=== PATIENT | male | born 1995 | race African-American/Black ===

== ENCOUNTER 2017-09-08 13:13 | Inpatient (IN) | payer MEDICAID ==
[~2017-09-08] VITALS: Ht 157.5 cm; Wt 59.0 kg
[2017-09-08 13:19] VITALS: BP 136/87
--- NOTE | 2017-09-08 13:19 | NUR ---
PT BIB [facility] BED [facility], REPORT GIVEN TO MARLINE LE
--- NOTE | 2017-09-08 13:29 | NUR ---
PATIENT BIB [facility] FROM [facility] FOR POSSIBLE SEIZURE; PER [facility] PT WAS FOUND SHAKING BY THE STAFF; LAST SEIZURE ACTIVITY WAS OVER A YEAR AGO, HX; CP, HYDROCEPHALOS, SILVANO HIP DISPLACEMENT, GLIND, GTUBE. PT HAS LEFT EYE BLINDNESS, ABLE TO OPEN RIGHT EYE, APHASIC, NOT ABLE TO FOLLOW COMMANDS, CONTRACTIVE TO ALL EXTREMITIES, NO S/S OF DISTRESS, LUNGS CLEAR BL; HR EVEN AND REGULAR; GTUBE IN PLACE, INCONTINENT WITH B&B'S, SKIN IS PINK/WARM/DRY; FLACC 0, VSS; PATIENT POSITIONED FOR COMFORT; HOB ELEVATED; BEDRAILS UP X2; BED DOWN. SAND BUFFER AT BEDSIDE, ER MD MADE AWARE OF PT STATUS.
[2017-09-08] MEDS ORDERED: NACL 0.9% 1,000 ML IV SCH (13:38)
[2017-09-08] MEDS ORDERED: LORazepam 2 MG/ML VIAL IVP ONE (13:40)
[2017-09-08] MEDS ORDERED: KETOROLAC 30 MG/ML VIAL IVP ONE (13:40)
--- NOTE | 2017-09-08 13:45 | NUR ---
Patient being evaluated by physician at bedside.
--- NOTE | 2017-09-08 14:06 | NUR ---
PT IS OFF UNITS FOR CT.
[2017-09-08 14:09] LABS: BASOPHILS # (AUTO) 0.1 K/uL (0.00-0.22); BASOPHILS % (AUTO) 0.5 % (0.0-2.0); EOSINOPHILS # (AUTO) 0.1 K/uL (0-0.4); HEMATOCRIT 49.5 % (36-52); HEMOGLOBIN 16.9 g/dL (12.0-18.0); LYMPHOCYTES # (AUTO) 1.9 K/uL (2.0-11.5); LYMPHOCYTES % (AUTO) 14.1 % (20.5-51.1); MEAN CORPUSCULAR HEMOGLOBIN 29 pg (27-31); MEAN CORPUSCULAR HGB CONC 34 g/dL (33-37); MEAN CORPUSCULAR VOLUME 84.5 fL (80-94); MONOCYTES # (AUTO) 1.9 K/uL (0.8-1.0); MONOCYTES % (AUTO) 14.2 % (1.7-9.3); NEUTROPHILS # (AUTO) 9.3 K/uL (1.8-7.7); NEUTROPHILS % (AUTO) 70.2 % (42.2-75.2); PLATELET COUNT (AUTO) 158 K/uL (140-450); RED BLOOD CELL COUNT(AUTO) 5.86 MIL/uL (4.20-6.10); RED CELL DISTRIBUTION WIDTH 13.9 % (11.6-13.7); WHITE BLOOD COUNT (AUTO) 13.2 K/uL (4.8-10.8)
[2017-09-08 14:19] LABS: ANION GAP 10.8 (8-16); CARBON DIOXIDE 27.3 mmol/L (21-32); CREATININE 0.9 mg/dL (0.7-1.3); POTASSIUM 4.1 mmol/L (3.5-5.1)
[2017-09-08 14:24] LABS: ALBUMIN 2.8 g/dL (3.4-5.0); TOTAL BILIRUBIN 0.2 mg/dL (0.0-1.0)
--- NOTE | 2017-09-08 14:55 | NUR ---
REY HORAN WAS NOTIFIED OF CRITICAL CT
--- NOTE | 2017-09-08 14:56 | NUR ---
RECIEVED CRITICAL CT FROM RADIOLOGY, ER NOTIFIED.
--- NOTE | 2017-09-08 15:04 | NUR ---
# 14 FR Urinary catheter inserted utilizing sterile technique. Immediate return of 30 ml CLEAR YELLOW urine noted. Urine sample collected and sent to lab. Pt tolerated procedure WELL.
[2017-09-08 15:39] LABS: APPEARANCE,URINE CLEAR (CLEAR); BILIRUBIN,URINE NEGATIVE (NEGATIVE); BLOOD, URINE NEGATIVE (NEGATIVE); COLOR,URINE YELLOW (YELLOW); LEUKOCYTE ESTERASE ,URINE NEGATIVE (NEGATIVE); NITRITE, URINE NEGATIVE (NEGATIVE); UGLUCOSE NEGATIVE (NEGATIVE)
[2017-09-08] MEDS ORDERED: CEFEPIME 1,000 MG in DEXTROSE 5% 50 ML IV ONE (17:05)
[2017-09-08] MEDS ORDERED: CEFEPIME 1,000 MG VIAL ONE (17:17)
[2017-09-08] MEDS ORDERED: CHLO1TAB42 PO (17:24)
[2017-09-08] MEDS ORDERED: ESOM20EC PO (17:24)
[2017-09-08] MEDS ORDERED: BACL10TA4 PO (17:24)
[2017-09-08] MEDS ORDERED: MAGN400S60 PO (17:24)
[2017-09-08] MEDS ORDERED: ATA10 PO (17:24)
[2017-09-08] MEDS ORDERED: IBUP100S26 PO (17:24)
[2017-09-08] MEDS ORDERED: RISP0.5T3 PO (17:24)
[2017-09-08] MEDS ORDERED: MIRABULK PO (17:24)
[2017-09-08] MEDS ORDERED: VIT1TABL36 PO (17:24)
[2017-09-08] MEDS ORDERED: CALC-38 PO (17:24)
[2017-09-08] MEDS ORDERED: SIMV20TA1 PO (17:24)
[2017-09-08] MEDS ORDERED: CARB100T PO (17:24)
[2017-09-08] MEDS ORDERED: KEP500L GT (17:24)
[2017-09-08] MEDS ORDERED: WHEA1POW16 PO (17:24)
[2017-09-08] MEDS ORDERED: MULT10VI3 IV (17:24)
[2017-09-08] MEDS ORDERED: DOCUSATE SODIUM 100 MG GELCAP PO PRN (17:45)
[2017-09-08] MEDS: NACL 0.9% 1,000 ML IV SCH (17:57)
[2017-09-08 18:30] VITALS: BP 134/88
--- NOTE | 2017-09-08 18:30 | NUR ---
PATIENT WAS TRANSFERRED FROM ED. REPORT WAS GIVEN AT BEDSIDE. PATIENT IS PLACED ON CARDIAC MONITORING. VS IS TAKEN, MRSA WAS SWABBED. IVF WAS HUNG PER ORDER. PATIENT AWAKE, ALERT. RESPIRATION EVEN, UNLABOR ON ROOM AIR. SKIN DRY AND WARM. IV PATENT AND INTACT. NO DISTRESS NOTED AT THIS TIME. BED AT LOW POSITION, SIDE RAILS UP. CALL LIGHT WITHIN REACH.
--- NOTE | 2017-09-08 18:30 | NUR ---
Patient will be admitted to care of DR. GUEVARA. Admited to TELEMETRY UNIT. Will go to room 123A. Belongings list completed. Report to MELANY RN AT BEDSIDE, PT IS IN STABLE CONDITION AT THIS TIME.
[2017-09-08 18:34] LABS: PROTHROMBIN TIME 10.8 secs (10.8-13.4)
[2017-09-08 18:50] LABS: CHOL/HDL RATIO 3.2 (1-4.5); FREE T4 (FREE THYROXINE) 0.78 ng/dL (0.76-1.46); PHOSPHORUS 2.8 mg/dL (2.5-4.9); THYROID STIMULATING HORMONE 1.13 uIU/mL (0.34-3.74)
--- NOTE | 2017-09-08 19:18 | NUR ---
ENDORSEMENT GIVEN TO THE SCRAPER OPERATOR NURSE. PATIENT IS STABLE AT THIS TIME
--- NOTE | 2017-09-08 19:25 | NUR ---
REPORT RECEIVED FROM AM NURSE. PT IN STABLE CONDITION. WILL CONTINUE TO MONITOR.
--- NOTE | 2017-09-08 19:26 | NUR ---
AM NURSE RECEIVED THE ADMIT AT 1830. WAS UNABLE TO ATTAIN ANY INFORMATION ABOUT THE PT FROM [facility].
[2017-09-08 20:00] VITALS: BP 122/85
--- NOTE | 2017-09-08 22:30 | NUR ---
PT ASLEEP IN BED BUT AROUSABLE TO NAME. BILATERAL CHEST EXPANSION SEEN. PT NOT IN ANY ACUTE DISTRESS. WILL CONTINUE TO MONITOR.
[2017-09-09] VITALS: BP 131/79
[2017-09-09] MEDS ORDERED: PIPERACILLIN/TAZOBACTAM 3.375 GM VIAL IV ONE ×2 (00:06→05:37)
[2017-09-09] MEDS: PIPER/TAZO 3.375GM/D5W PREMIX 50 ML IV SCH ×5 (00:13→18:46)
--- NOTE | 2017-09-09 01:00 | NUR ---
FOUND IV LINE PULLED OUT AND BED LINENS VERY DAMP. RUNNING IV NS @60ML/H. PT SLEEPING IN BED. WILL ATTEMPT NEW IV SITE.
--- NOTE | 2017-09-09 02:00 | NUR ---
IV STARTED RIGHT HAND 22G. 2 ATTEMPTS MADE. PT TOLERATED WELL.
[2017-09-09 04:00] VITALS: BP 136/80
--- NOTE | 2017-09-09 05:30 | NUR ---
CNAS IN TO CHANGE PT. PT VOIDED INTO CHUCKS. PT TOLERATED THE CHANGE WELL. WILL CONTINUE TO MONITOR.
[2017-09-09] MEDS ORDERED: hydrOXYzine HCL 10 MG TAB GT SCH (06:00)
--- NOTE | 2017-09-09 06:53 | NUR ---
PATIENT HAS BEEN SCREENED AND CATEGORIZED MODERATE NUTRITION RISK. PATIENT WILL BE SEEN WITHIN 3-5 DAYS OF ADMISSION. 09/11/17-09/13/[address]
--- NOTE | 2017-09-09 07:25 | NUR ---
REPORT GIVEN TO AM NURSE. PT IN STABLE CONDITION.
--- NOTE | 2017-09-09 07:26 | NUR ---
RECEIVED REPORT FROM SITE SAFETY MANAGER RN. PATIENT IS AAOX1, HAS NO SIGNS AND SYMPTOMS OF ACUTE DISTRESS NOTED AT THIS TIME. HAS IV TO THE RIGHT HAND 22G, NS AT 60 ML/HR. HAS G-TUBE. DISCUSSED PLAN OF CARE WITH PATIENT BUT REINFORCEMENT IS NEEDED. PATIENT IS CONTRACTED. BED ALARM ON. BED IN LOWEST POSITION, SEIZURE PRECAUTIONS IN PLACE, SIDE RAILS UP X2, CALL LIGHT WITHIN REACH. WILL CONTINUE TO MONITOR.
[2017-09-09 07:50] LABS: ANION GAP 12.3 (8-16); CARBON DIOXIDE 25.3 mmol/L (21-32); CREATININE 0.9 mg/dL (0.7-1.3); POTASSIUM 3.6 mmol/L (3.5-5.1)
[2017-09-09 07:51] LABS: BASOPHILS # (AUTO) 0.1 K/uL (0.00-0.22); BASOPHILS % (AUTO) 0.5 % (0.0-2.0); EOSINOPHILS # (AUTO) 0.2 K/uL (0-0.4); EOSINOPHILS % (AUTO) 1.7 % (0.0-4.0); HEMOGLOBIN 16.2 g/dL (12.0-18.0); LYMPHOCYTES % (AUTO) 16.2 % (20.5-51.1); MEAN CORPUSCULAR HEMOGLOBIN 29 pg (27-31); MEAN CORPUSCULAR HGB CONC 35 g/dL (33-37); MONOCYTES # (AUTO) 1.7 K/uL (0.8-1.0); MONOCYTES % (AUTO) 13.7 % (1.7-9.3); NEUTROPHILS # (AUTO) 8.6 K/uL (1.8-7.7); NEUTROPHILS % (AUTO) 67.9 % (42.2-75.2); PLATELET COUNT (AUTO) 165 K/uL (140-450); RED CELL DISTRIBUTION WIDTH 13.8 % (11.6-13.7); WHITE BLOOD COUNT (AUTO) 12.6 K/uL (4.8-10.8)
[2017-09-09 08:00] VITALS: BP 130/75
[2017-09-09] MEDS ORDERED: carBAMazepine 200 MG TAB GT SCH (09:00)
[2017-09-09] MEDS ORDERED: levETIRAcetam 100 MG/ML ORASYR GT SCH (09:00)
[2017-09-09] MEDS ORDERED: risperiDONE 1 MG TAB GT SCH (09:00)
--- NOTE | 2017-09-09 09:30 | NUR ---
CAREGIVER BROUGHT THE TUBING TO BE ATTACHED TO PATIENTS GTUBE.
--- NOTE | 2017-09-09 09:40 | NUR ---
ATTACHED THE TUBE TO PATIENTS GTUBE. ASSESSED GTUBE BY INSERTING 20ML OF AIR AND LISTENING TO INSERTION. THERE WAS NO RESIDUAL. FLUSHED GTUBE WITH 20 ML OF WATER. WILL CONTINUE TO MONITOR.
[2017-09-09] MEDS: carBAMazepine 200 MG TAB GT SCH ×3 (11:06→17:28)
[2017-09-09] MEDS: LACTOBACILLUS RHAMNOSUS GG 1 EACH CAP PO SCH (11:06)
[2017-09-09] MEDS: risperiDONE 1 MG TAB GT SCH ×2 (11:06→21:19)
[2017-09-09] MEDS: POLYETHYLENE GLYCOL 17 GM/PKT PO SCH (11:07)
[2017-09-09] MEDS: MAGNESIUM HYDROXIDE 2400 MG/30 ML UDC GT SCH (11:07)
[2017-09-09] MEDS: levETIRAcetam 100 MG/ML ORASYR GT SCH ×2 (11:07→21:19)
[2017-09-09] MEDS: hydrOXYzine HCL 10 MG TAB GT SCH ×2 (11:10→18:45)
[2017-09-09 12:00] VITALS: BP 113/68
[2017-09-09] MEDS: BACLOFEN 10 MG TAB GT SCH ×2 (14:09→21:19)
[2017-09-09 16:00] VITALS: BP 113/67
--- NOTE | 2017-09-09 19:26 | NUR ---
ENDORSED PATIENT TO VENDING MACHINE ATTENDANT RN FOR CONTINUITY OF CARE. PATIENT IN STABLE CONDITION.
--- NOTE | 2017-09-09 19:27 | NUR ---
RECEIVED REPORT AT PT BEDSIDE FROM DAY SHIFT RN, FOR CONTINUITY OF CARE. PATIENT IS APHASIC ON ROOM AIR. UNABLE TO FOLLOW COMMANDS. PT SKIN IS INTACT. PATIENT HAS 22G IV TO RIGHT HAND, ASYMPTOMATIC, INTACT, PATENT. RESPIRATIONS EVEN AND UNLABORED, AND CONTRACTED EXTREMITIES (BILATERAL UPPER AND LOWER). UPDATED BOARD. VITAL SIGNS WITHIN NORMAL LIMITS. PT STABLE, NO SIGNS OF DISTRESS NOTED AT THIS TIME. BED IN LOWEST POSITION, BED ALARM ON. CALL LIGHT WITHIN REACH, WILL CONTINUE TO MONITOR.
[2017-09-09 20:00] VITALS: BP 117/69
[2017-09-09] MEDS: HYDROcodone/APAP 7.5/325 MG 1 TAB PO PRN (21:19)
[2017-09-09] MEDS: SIMVASTATIN 20 MG TAB GT SCH (21:19)
[2017-09-09] MEDS: NACL 0.9% 1,000 ML IV SCH (21:20)
--- NOTE | 2017-09-09 21:20 | NUR ---
ADMINISTERED SCHEDULED MEDICATIONS AND NORCO FOR FLACC 6. PT TOLERATED WELL. FLUSHED WITH 30ML WATER. BED IN LOWEST POSITION, BED ALARM ON. CALL LIGHT WITHIN REACH, WILL CONTINUE TO MONITOR.
--- NOTE | 2017-09-09 22:16 | NUR ---
RECEIVED REPORT AT PT BEDSIDE FROM DAY SHIFT RN, FOR CONTINUITY OF CARE. PATIENT IS APHASIC ON ROOM AIR. UNABLE TO FOLLOW COMMANDS. PT SKIN IS INTACT. PATIENT HAS 22G IV TO RIGHT HAND, ASYMPTOMATIC, INTACT, PATENT. RESPIRATIONS EVEN AND UNLABORED. UPDATED BOARD. VITAL SIGNS WITHIN NORMAL LIMITS. PT STABLE, NO SIGNS OF DISTRESS NOTED AT THIS TIME. BED IN LOWEST POSITION, BED ALARM ON. CALL LIGHT WITHIN REACH, WILL CONTINUE TO MONITOR. Addendum: 09/09/17 at 2221 by Yoselin Samayoa RN PLEASE DISREGARD.
[2017-09-10] VITALS: BP 125/76
--- NOTE | 2017-09-10 | NUR ---
VITAL SIGNS WITHIN NORMAL LIMITS. PT STABLE, NO SIGNS OF DISTRESS NOTED AT THIS TIME. BED IN LOWEST POSITION, BED ALARM ON. CALL LIGHT WITHIN REACH, WILL CONTINUE TO MONITOR.
[2017-09-10] MEDS: PIPER/TAZO 3.375GM/D5W PREMIX 50 ML IV SCH ×4 (00:14→17:16)
[2017-09-10] MEDS: hydrOXYzine HCL 10 MG TAB GT SCH ×2 (00:14→05:03)
[2017-09-10 04:00] VITALS: BP 143/80
[2017-09-10] MEDS: BACLOFEN 10 MG TAB GT SCH ×3 (05:03→21:23)
[2017-09-10] MEDS: HYDROcodone/APAP 7.5/325 MG 1 TAB PO PRN (05:04)
--- NOTE | 2017-09-10 07:09 | NUR ---
ENDORSED PT TO DAY SHIFT RN FOR CONTINUITY OF CARE. PT IN STABLE CONDITION.
--- NOTE | 2017-09-10 07:10 | NUR ---
RECEIVED REPORT FROM ANIMAL CRUELTY INVESTIGATOR RN. PATIENT IS AWAKE, RESPONDS TO SHAKING. HAS NO SIGNS AND SYMPTOMS OF ACUTE DISTRESS NOTED AT THIS TIME. HAS IV TO THE RIGHT HAND 22G, NS AT 60 ML/HR. HAS G-TUBE. DISCUSSED PLAN OF CARE WITH PATIENT BUT REINFORCEMENT IS NEEDED. PATIENT IS CONTRACTED. BED ALARM ON. BED IN LOWEST POSITION, SEIZURE PRECAUTIONS IN PLACE, SIDE RAILS UP X2, CALL LIGHT WITHIN REACH. WILL CONTINUE TO MONITOR.
[2017-09-10 07:28] LABS: BASOPHILS # (AUTO) 0.1 K/uL (0.00-0.22); BASOPHILS % (AUTO) 0.5 % (0.0-2.0); EOSINOPHILS # (AUTO) 0.1 K/uL (0-0.4); EOSINOPHILS % (AUTO) 0.7 % (0.0-4.0); HEMATOCRIT 45.1 % (36-52); HEMOGLOBIN 15.3 g/dL (12.0-18.0); LYMPHOCYTES # (AUTO) 1.4 K/uL (2.0-11.5); LYMPHOCYTES % (AUTO) 11.1 % (20.5-51.1); MEAN CORPUSCULAR HEMOGLOBIN 29 pg (27-31); MEAN CORPUSCULAR HGB CONC 34 g/dL (33-37); MEAN CORPUSCULAR VOLUME 84.2 fL (80-94); MONOCYTES % (AUTO) 16.3 % (1.7-9.3); NEUTROPHILS # (AUTO) 8.9 K/uL (1.8-7.7); NEUTROPHILS % (AUTO) 71.4 % (42.2-75.2); PLATELET COUNT (AUTO) 184 K/uL (140-450); RED BLOOD CELL COUNT(AUTO) 5.35 MIL/uL (4.20-6.10); RED CELL DISTRIBUTION WIDTH 13.6 % (11.6-13.7); WHITE BLOOD COUNT (AUTO) 12.4 K/uL (4.8-10.8)
[2017-09-10 07:38] LABS: ANION GAP 14.9 (8-16); CARBON DIOXIDE 23.6 mmol/L (21-32); POTASSIUM 4.5 mmol/L (3.5-5.1)
[2017-09-10 07:41] LABS: MAGNESIUM 2.2 mg/dL (1.8-2.4); PHOSPHORUS 3.8 mg/dL (2.5-4.9)
[2017-09-10 08:00] VITALS: BP 104/86
[2017-09-10 09:07] LABS: T4 (THYROXINE) 7.8 ug/dL (4.5-12.0)
[2017-09-10] MEDS: LACTOBACILLUS RHAMNOSUS GG 1 EACH CAP PO SCH (09:57)
[2017-09-10] MEDS: levETIRAcetam 100 MG/ML ORASYR GT SCH ×2 (09:57→21:23)
[2017-09-10] MEDS: carBAMazepine 200 MG TAB GT SCH ×3 (09:57→17:16)
[2017-09-10] MEDS: POLYETHYLENE GLYCOL 17 GM/PKT PO SCH (09:58)
[2017-09-10] MEDS: risperiDONE 1 MG TAB GT SCH ×2 (09:58→21:23)
[2017-09-10] MEDS: MAGNESIUM HYDROXIDE 2400 MG/30 ML UDC GT SCH (09:58)
--- NOTE | 2017-09-10 11:45 | NUR ---
STARTED PATIENT ON FEEDING AT 50 ML/HR. PATIENT TOLERATING WELL SO FAR.
[2017-09-10 12:00] VITALS: BP 136/80
[2017-09-10] MEDS: hydrOXYzine HCL 25 MG TAB GT SCH ×2 (12:00→17:16)
--- NOTE | 2017-09-10 13:05 | NUR ---
SPOKE WITH STAFF FROM [facility] AND THEY STATED THAT THE PATIENT WAS ON A PUREED DIET THERE. WILL LET DR ARMANDO KNOW.
[2017-09-10 16:00] VITALS: BP 142/84
--- NOTE | 2017-09-10 16:00 | NUR ---
PATIENTS HEART RATE IS 124 ON THE MONITOR, HAS A FEVER OF 100.7, AND RESPIRATIONS OF 34. WILL ADMINISTER TYLENOL AND REASSESS.
[2017-09-10] MEDS: ACETAMINOPHEN 325 MG TAB PO PRN (16:09)
--- NOTE | 2017-09-10 16:10 | NUR ---
NOTIFIED DR BERG OF PATIENTS VITALS BEFORE I ADMINISTERED THE TYLENOL. SHE STATED TO ADMINISTER THE TYLENOL AND WILL SEE ABOUT GIVING PATIENT A BOLUS OF FLUIDS.
--- NOTE | 2017-09-10 17:10 | NUR ---
PATIENTS TEMP AT 100.9 ORAL, BUT RESPIRATORY RATE AND HEART RATE HAVE DECREASED TO NORMAL. COOLING MEASURES ARE IN PLACE. WILL CONTINUE TO MONITOR.
--- NOTE | 2017-09-10 18:58 | NUR ---
PATIENTS ORAL TEMPERATURE IS 99.8. NO SIGNS AND SYMPTOMS OF ACUTE DISTRESS NOTED AT THIS TIME. NO SEIZURES NOTED AT THIS TIME.
--- NOTE | 2017-09-10 19:20 | NUR ---
ENDORSED PATIENT TO SHOE CASER RN FOR CONTINUITY OF CARE. PATIENT IN STABLE CONDITION.
[2017-09-10 20:00] VITALS: BP 135/76
[2017-09-10] MEDS: SIMVASTATIN 20 MG TAB GT SCH (21:24)
--- NOTE | 2017-09-10 21:30 | NUR ---
ADMINISTERED SCHEDULED MEDICATIONS, NO RESIDUAL NOTED. PT TOLERATED WELL, FLUSHED WITH 30ML WATER. NO SIGNS OF DISTRESS NOTED AT THIS TIME. BED IN LOWEST POSITION, BED ALARM ON. CALL LIGHT WITHIN REACH, WILL CONTINUE TO MONITOR.
[2017-09-10] MEDS: NACL 0.9% 1,000 ML IV SCH (22:25)
[2017-09-11] VITALS: BP 138/79
[2017-09-11] MEDS: ACETAMINOPHEN 325 MG TAB PO PRN (00:35)
[2017-09-11] MEDS: PIPER/TAZO 3.375GM/D5W PREMIX 50 ML IV SCH ×4 (00:35→17:25)
[2017-09-11] MEDS: hydrOXYzine HCL 25 MG TAB GT SCH ×4 (00:35→17:25)
--- NOTE | 2017-09-11 00:40 | NUR ---
PT HAS FEVER OF 101.2, ADMINISTERED SCHEDULED MEDICATIONS AND TYLENOL THROUGH GTUBE, NO RESIDUAL NOTICED. FLUSHED WITH 30MLS OF WATER. PT TOLERATED WELL. NO SIGNS OF DISTRESS NOTED AT THIS TIME. BED IN LOWEST POSITION, BED ALARM ON. CALL LIGHT WITHIN REACH, WILL CONTINUE TO MONITOR.
--- NOTE | 2017-09-11 02:48 | NUR ---
TEMPERATURE IS NOW 99.3, WITH COOLING MEASURES STILL IN PLACE. NO SIGNS OF DISTRESS NOTED AT THIS TIME. BED IN LOWEST POSITION, BED ALARM ON. CALL LIGHT WITHIN REACH, WILL CONTINUE TO MONITOR.
[2017-09-11 04:00] VITALS: BP 123/72
--- NOTE | 2017-09-11 04:00 | NUR ---
VITAL SIGNS WITHIN NORMAL LIMITS, EXCEPT O2, PT STARTED DESATURATING FROM 90 TO 87. CONNECTED O2 VIA NASAL CANNULA AT 2L, AND PT NOW SATURATING AT 93%. PT STABLE, NO SIGNS OF DISTRESS NOTED AT THIS TIME. BED IN LOWEST POSITION, BED ALARM ON. CALL LIGHT WITHIN REACH, WILL CONTINUE TO MONITOR.
[2017-09-11] MEDS: BACLOFEN 10 MG TAB GT SCH ×3 (05:13→21:18)
--- NOTE | 2017-09-11 05:35 | NUR ---
PT STILL ON O2 2L SATURATING BETWEEN 93 AND 94. COOLING MEASURES STILL IN PLACE. TEMP 99.1
[2017-09-11 06:21] LABS: BASOPHILS # (AUTO) 0.1 K/uL (0.00-0.22); BASOPHILS % (AUTO) 0.3 % (0.0-2.0); EOSINOPHILS # (AUTO) 0.1 K/uL (0-0.4); EOSINOPHILS % (AUTO) 0.8 % (0.0-4.0); HEMATOCRIT 44.1 % (36-52); HEMOGLOBIN 14.9 g/dL (12.0-18.0); LYMPHOCYTES # (AUTO) 2.6 K/uL (2.0-11.5); LYMPHOCYTES % (AUTO) 16.4 % (20.5-51.1); MEAN CORPUSCULAR HEMOGLOBIN 28 pg (27-31); MEAN CORPUSCULAR HGB CONC 34 g/dL (33-37); MEAN CORPUSCULAR VOLUME 84.5 fL (80-94); MONOCYTES # (AUTO) 2.9 K/uL (0.8-1.0); MONOCYTES % (AUTO) 18.3 % (1.7-9.3); NEUTROPHILS # (AUTO) 10.2 K/uL (1.8-7.7); NEUTROPHILS % (AUTO) 64.2 % (42.2-75.2); PLATELET COUNT (AUTO) 177 K/uL (140-450); RED BLOOD CELL COUNT(AUTO) 5.23 MIL/uL (4.20-6.10); RED CELL DISTRIBUTION WIDTH 13.4 % (11.6-13.7); WHITE BLOOD COUNT (AUTO) 15.9 K/uL (4.8-10.8)
[2017-09-11 06:45] LABS: ANION GAP 12.2 (8-16); CARBON DIOXIDE 25.6 mmol/L (21-32); CREATININE 1.1 mg/dL (0.7-1.3); POTASSIUM 3.8 mmol/L (3.5-5.1)
[2017-09-11 06:50] LABS: MAGNESIUM 2.3 mg/dL (1.8-2.4); PHOSPHORUS 3.2 mg/dL (2.5-4.9)
--- NOTE | 2017-09-11 07:23 | NUR ---
ENDORSED PT TO DAY SHIFT RN FOR CONTINUITY OF CARE, PT IN STABLE CONDITION.
--- NOTE | 2017-09-11 07:24 | NUR ---
RECEIVED REPORT FROM SHIRT OPERATOR NURSE. PATIENT LYING DOWN IN BED SLEEPING, AROUSABLE BY VOICE. NO DISTRESS NOTED. FLACC 0. RESPIRATIONS EVEN, UNLABORED, ON O2 2L/MIN VIA NC. AAOX1, APHASIC, NON-VERBAL, CALM, SKIN COLOR APPROPRIATE TO ETHNICITY, WARM TO TOUCH. SKIN IS INTACT. 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 ABDOMEN SOFT, NON-DISTENDED, GTUBE IN PLACE, INTACT, AND PATENT. IV SITE INTACT, PATENT, AND INFUSING IVF PER MD ORDERS. REVIEWED PLAN OF CARE WITH PATIENT. UNABLE TO COMPREHEND. SAFETY MEASURES IN PLACE, CALL LIGHT WITHIN REACH. WILL CONTINUE TO MONITOR.
[2017-09-11 08:00] VITALS: BP 101/56
--- NOTE | 2017-09-11 08:00 | NUR ---
PATIENT IS SLEEPING COMFORTABLY, EASILY AROUSABLE ON BY NAME. SKIN DRY AND WARM. IV PATENT AND INTACT. GTUBE DRY AND CLEAN. NO DISTRESS NOTED AT THIS TIME. FLACC 0. BED AT LOW POSITION, SIDE RAILS UP. CALL LIGHT WITHIN REACH
--- NOTE | 2017-09-11 08:00 | NUR ---
DR. BEGUM AT BEDSIDE REVIEWING PLAN OF CARE WITH PATIENT. WILL CONTINUE TO MONITOR.
--- NOTE | 2017-09-11 08:45 | NUR ---
GAVE REPORT TO MARLINE JAVIER FOR CONTINUITY OF CARE. PATIENT IN STABLE CONDITION.
[2017-09-11] MEDS: levETIRAcetam 100 MG/ML ORASYR GT SCH ×2 (09:54→21:20)
[2017-09-11] MEDS: LACTOBACILLUS RHAMNOSUS GG 1 EACH CAP PO SCH (09:55)
[2017-09-11] MEDS: carBAMazepine 200 MG TAB GT SCH ×3 (09:55→17:25)
[2017-09-11] MEDS: risperiDONE 1 MG TAB GT SCH ×2 (09:55→21:19)
[2017-09-11] MEDS: POLYETHYLENE GLYCOL 17 GM/PKT PO SCH (09:55)
[2017-09-11] MEDS: MAGNESIUM HYDROXIDE 2400 MG/30 ML UDC GT SCH (09:55)
[2017-09-11] MEDS: NACL 0.9% 1,000 ML IV SCH ×2 (09:56→18:17)
--- NOTE | 2017-09-11 10:12 | NUR ---
GTUBE DRY AND INTACT. RESIDUAL CHECKED AT 30ML. MEDS WERE GIVEN PER ORDER. PATIENT TOLERATED WELL.
--- NOTE | 2017-09-11 10:30 | NUR ---
PATIENT HAS BEEN CATEGORIZED HIGH NUTRITION RISK DUE TO RECEIVING A FNS CONSULTATION. PATIENT WILL BE SEEN WITHIN 1-2 DAYS OF ADMISSION. 09/11/17 09/12/[address]
--- NOTE | 2017-09-11 11:45 | NUR ---
PATIENT IS SLEEPING COMFORTABLY, EASILY AROUSABLE BY NAME. RESPIRATION EVEN, UNLABOR ON 2L NC. VS IS STABLE. NO DISTRESS NOTED AT THIS TIME
[2017-09-11 12:00] VITALS: BP 119/72
--- NOTE | 2017-09-11 12:30 | NUR ---
RESIDUAL WAS CHECKED AT 3ML. PATIENT TOLERATED DIET WELL. MEDS WERE GIVEN PER ORDER
--- NOTE | 2017-09-11 14:30 | NUR ---
PATIENT IS SLEEPING COMFORTABLY, RESPIRATION EVEN, UNLABOR ON 2L NC. NO DISTRESS NOTED AT THIS TIME
--- NOTE | 2017-09-11 15:34 | NUR ---
09/11/17 RD INITIAL ASSESSMENT COMPLETED PLEASE REFER TO NUTRITION ASSESSMENT UNDER CARE ACTIVITY FOR ESTIMATED NUTRITIONAL NEEDS. 1. CONTINUE PUREE DIET TOLERATED 2. RECOMMEND BOOST PLUS BID IF PO INTAKE FALLS BELOW 75% 3. PROVIDED PT WITH FOOD AND DRUG INTERACTION EDUCATION 4. RD TO FOLLOW-UP 3-5 DAYS, MODERATE RISK [address]
[2017-09-11 16:00] VITALS: BP 118/63
--- NOTE | 2017-09-11 16:10 | NUR ---
PATIENT IS RESTING COMFORTABLY. RESPIRATION EVEN, UNLABOR ON ROOM AIR. VS IS STABLE. FLACC 0. NO DISTRESS NOTED AT THIS TIME.
--- NOTE | 2017-09-11 18:22 | NUR ---
PATIENT WAS SLEEPING COMFORTABLY, EASILY AROUSABLE BY TOUCH. RESPIRATION EVEN, UNLABOR ON ROOM AIR. IV PATENT AND INTACT. NO DISTRESS NOTED AT THIS TIME. CALL LIGHT WITHIN REACH
--- NOTE | 2017-09-11 19:21 | NUR ---
RECEIVED REPORT FROM MELANY HORAN DAYSHIFT NURSE AT BEDSIDE FOR CONTINUITY OF CARE. PT IS AOX 1. HE IS SITTING UPRIGHT IN LOW BED WITH SEIZURE PRECAUTIONS IN PLACE . PT SKIN INTACT AND HAS A G TUBE WHICH WAS FLUSHED PATENT AND NO RESIDUAL NOTED. PT HAS NORMAL SALINE RUNNING AT 80 MLS/HR VIA A R HAND 22G IV SITE WHICH IS INTACT AND ASYMPTOMATIC. V/S FOLLOWS T 98.1 P 106 R 20 B/P 122/64 02M 93 WITH 4 LITERS VIA N/C. PT HAS NO S/S OF PAIN OR DISTRESS NOTED.
--- NOTE | 2017-09-11 19:21 | NUR ---
ENDORSEMENT GIVEN TO THE CONNIE CLEANER NURSE. PATIENT IS STABLE AT THIS TIME.
[2017-09-11 20:00] VITALS: BP 122/64
[2017-09-11] MEDS: SIMVASTATIN 20 MG TAB GT SCH (21:19)
--- NOTE | 2017-09-11 22:30 | NUR ---
PT TURNED AND CHANGED AND JOSE CARE PROVIDED. PT IS VERY CONTRACTED IN LOWER LEGS, BUT SKIN IS INTACT WITH NO S/S OF BREAKDOWN. PT DOES TRY TO GET N/C OFF OVER HIS HEAD AND WAS REMINDED TO KEEP N/C ON SO HE CAN BREATH BETTER. BED IN LOW POSITION AND SEIZURE PRECAUTIONS IN PLACE. PT REPOSITIONED AND MADE COMFORTABLE. CALL BONILLA IN REACH. PT HAD NO S/S OF PAIN OR DISTRESS NOTED.
[2017-09-12] VITALS (7 sets, daily range): BP systolic 109–125; BP diastolic 64–76
[2017-09-12] MEDS: hydrOXYzine HCL 25 MG TAB GT SCH ×4 (00:43→16:43)
[2017-09-12] MEDS: NACL 0.9% 1,000 ML IV SCH ×2 (01:46→16:44)
--- NOTE | 2017-09-12 04:30 | NUR ---
pt turned , changed and repostioned. no s/s of pain or distress noted. pt in low bed with hob up at 45%.side rails up and seizure precautions in place. no s/s of seizure noted. pt on 3 liters of 02 via n/c all vss. al meds given as orederd.
[2017-09-12] MEDS: BACLOFEN 10 MG TAB GT SCH ×3 (04:52→20:55)
[2017-09-12] MEDS: PIPER/TAZO 3.375GM/D5W PREMIX 50 ML IV SCH ×4 (05:04→17:40)
--- NOTE | 2017-09-12 07:10 | NUR ---
pt report given at bedside to Lise odonnell dayshift nurse for continuity of care, pt in stable condition.
--- NOTE | 2017-09-12 07:53 | NUR ---
PATIENT WAS SLEEPING COMFORTABLY, EASILY AROUSABLE BY TOUCH. RESPIRATION EVEN, UNLABOR ON 4L NC. SKIN DRY AND WARM. LUNGS SOUND DIMINISH ON RLL, CLEAR THROUGHOUT. BOWEL SOUND ACTIVE 4 QUADRANTS. GTUBE DRY AND INTACT. REGULAR CARDIAC RHYTHM. FLACC 0. NO DISTRESS NOTED. BED AT LOW POSITION, SIDE RAILS UP. BED ALARM ACTIVE.
[2017-09-12] MEDS: POLYETHYLENE GLYCOL 17 GM/PKT PO SCH (09:35)
[2017-09-12] MEDS: levETIRAcetam 100 MG/ML ORASYR GT SCH ×2 (09:35→20:54)
[2017-09-12] MEDS: MAGNESIUM HYDROXIDE 2400 MG/30 ML UDC GT SCH (09:36)
[2017-09-12] MEDS: LACTOBACILLUS RHAMNOSUS GG 1 EACH CAP PO SCH (09:36)
[2017-09-12] MEDS: risperiDONE 1 MG TAB GT SCH ×2 (09:36→20:54)
[2017-09-12] MEDS: carBAMazepine 200 MG TAB GT SCH ×3 (09:37→16:43)
--- NOTE | 2017-09-12 10:05 | NUR ---
CALLED AND TALKED TO KERRIE HOPOSN, [employer]OPTER FOR THE PATIENT, REGARDING CONSENT FOR CT CHEST WITH CONTRAST. WAS INFORMED CONSENT WILL BE FAXED TO THE DEPARTMENT.
[2017-09-12 11:37] LABS: BASOPHILS # (AUTO) 0.1 K/uL (0.00-0.22); BASOPHILS % (AUTO) 0.5 % (0.0-2.0); EOSINOPHILS # (AUTO) 0.4 K/uL (0-0.4); EOSINOPHILS % (AUTO) 3.7 % (0.0-4.0); HEMATOCRIT 40.9 % (36-52); HEMOGLOBIN 13.8 g/dL (12.0-18.0); LYMPHOCYTES # (AUTO) 2.1 K/uL (2.0-11.5); LYMPHOCYTES % (AUTO) 19.7 % (20.5-51.1); MEAN CORPUSCULAR HEMOGLOBIN 29 pg (27-31); MEAN CORPUSCULAR HGB CONC 34 g/dL (33-37); MEAN CORPUSCULAR VOLUME 84.3 fL (80-94); MONOCYTES # (AUTO) 1.6 K/uL (0.8-1.0); NEUTROPHILS # (AUTO) 6.6 K/uL (1.8-7.7); NEUTROPHILS % (AUTO) 61.1 % (42.2-75.2); PLATELET COUNT (AUTO) 178 K/uL (140-450); RED BLOOD CELL COUNT(AUTO) 4.85 MIL/uL (4.20-6.10); RED CELL DISTRIBUTION WIDTH 13.5 % (11.6-13.7); WHITE BLOOD COUNT (AUTO) 10.8 K/uL (4.8-10.8)
--- NOTE | 2017-09-12 11:49 | NUR ---
PATIENT AWAKE, ALERT. RESPIRATION EVEN, UNLABOR ON 2L NC. SKIN DRY AND WARM. VS IS STABLE. FLACC 0. NO DISTRESS NOTED AT THIS TIME. NEW IV WAS INSERT TO LEFT AC. PATIENT TOLERATED WELL
[2017-09-12] MEDS: ACETAMINOPHEN 325 MG TAB PO PRN ×2 (12:23→20:54)
[2017-09-12 12:41] LABS: ANION GAP 10.4 (8-16); CARBON DIOXIDE 28.5 mmol/L (21-32); CREATININE 0.8 mg/dL (0.7-1.3); POTASSIUM 3.9 mmol/L (3.5-5.1)
--- NOTE | 2017-09-12 13:48 | NUR ---
ENDORSEMENT GIVEN TO DARIO HORAN FOR CONTINUITY OF CARE. PATIENT IS STABLE AT THIS TIME
--- NOTE | 2017-09-12 13:48 | NUR ---
DR. DOLAN WAS MADE AWARE OF REDNESS ON PATIENT'S PERINEAL AREA, AWAITING FOR NEW ORDER.
[2017-09-12] MEDS ORDERED: HYDRAGUARD CREAM TP PRN (13:55)
--- NOTE | 2017-09-12 14:00 | NUR ---
RECEIVED PT REPORT FROM MARLINE MOSLEY. PT IS SLEEPING, NO S/S OF ACUTE DISTRESS ON O2 2L, VIA NC.
--- NOTE | 2017-09-12 16:50 | NUR ---
CALLED KERRIE HOPSON, LEFT A MESSAGE FOR CONSENT CT WITH CONTRAST, PHONE # AND FAX# PROVIDED.
--- NOTE | 2017-09-12 17:30 | NUR ---
PT IS ABLE TO SWALLOW, ON PUREE DIET. MED GIVEN PO, NO SWALLOWING DIFFICULTY NOTED.
--- NOTE | 2017-09-12 19:15 | NUR ---
REPORT GIVEN TO VEHICLE CHECK IN CLERK RN AT BEDSIDE FOR CONTINUE OF CARE, PT IS IN STABLE CONDITION AT THIS TIME.
--- NOTE | 2017-09-12 19:17 | NUR ---
RECEIVED REPORT FROM RN. PT RESTING IN BED. AAOX1, APHASIC BUT OPENS EYES TO NAME. PT ON O2 2L NC. NO S/S OF ACUTE DISTRESS. PT'S G-TUBE NOTED. IV SITES PATENT AND INTACT. COOLING MEASURES IN PLACE FOR FEVER. CALL LIGHT WITHIN REACH. SAFETY MEASURES ENSURED. WILL CONTINUE TO MONITOR.
[2017-09-12] MEDS: SIMVASTATIN 20 MG TAB GT SCH (20:55)
--- NOTE | 2017-09-12 23:57 | NUR ---
DR. JIMÉNEZ MADE AWARE OF FEVER. COOLING MEASURES IN PLACE. WILL CONTINUE TO MONITOR.
[2017-09-13] MEDS ORDERED: KETOROLAC 15 MG/ML VIAL IVP SCH
[2017-09-13] MEDS: hydrOXYzine HCL 25 MG TAB GT SCH ×4 (00:22→17:42)
[2017-09-13] MEDS: PIPER/TAZO 3.375GM/D5W PREMIX 50 ML IV SCH ×5 (00:22→17:17)
[2017-09-13 04:00] VITALS: BP 105/70
--- NOTE | 2017-09-13 04:23 | NUR ---
PT'S IV OUT ON ASSESSMENT. NEW IV STARTED. NO S/S OF ACUTE DISTRESS. WILL CONTINUE TO MONITOR.
[2017-09-13] MEDS: BACLOFEN 10 MG TAB GT SCH ×3 (05:10→21:16)
[2017-09-13 06:29] LABS: BASOPHILS # (AUTO) 0.1 K/uL (0.00-0.22); BASOPHILS % (AUTO) 0.6 % (0.0-2.0); EOSINOPHILS # (AUTO) 0.6 K/uL (0-0.4); EOSINOPHILS % (AUTO) 6.3 % (0.0-4.0); HEMATOCRIT 41.1 % (36-52); HEMOGLOBIN 13.9 g/dL (12.0-18.0); LYMPHOCYTES # (AUTO) 3.1 K/uL (2.0-11.5); LYMPHOCYTES % (AUTO) 32.3 % (20.5-51.1); MEAN CORPUSCULAR HEMOGLOBIN 29 pg (27-31); MEAN CORPUSCULAR HGB CONC 34 g/dL (33-37); MONOCYTES # (AUTO) 1.2 K/uL (0.8-1.0); NEUTROPHILS # (AUTO) 4.6 K/uL (1.8-7.7); NEUTROPHILS % (AUTO) 47.8 % (42.2-75.2); PLATELET COUNT (AUTO) 197 K/uL (140-450); RED BLOOD CELL COUNT(AUTO) 4.83 MIL/uL (4.20-6.10); RED CELL DISTRIBUTION WIDTH 13.4 % (11.6-13.7); WHITE BLOOD COUNT (AUTO) 9.6 K/uL (4.8-10.8)
[2017-09-13 06:48] LABS: ANION GAP 8.7 (8-16); CARBON DIOXIDE 29.4 mmol/L (21-32); CREATININE 0.9 mg/dL (0.7-1.3); POTASSIUM 4.1 mmol/L (3.5-5.1)
--- NOTE | 2017-09-13 07:15 | NUR ---
RECEIVED REPORT FROM NIGHTSHIFT NURSE AT [facility]. PATIENT IS ASLEEP AT THIS TIME. PATIENT IS AROUSABLE TO NAME. PATIENT IS APHASIC. PATIENT HAS A G-TUBE IN PLACE THAT IS CLAMPED. PATIENT HAS AN IV 22G ON LEFT FOREARM RUNNING 50 ML/HR NORMAL SALINE. NO DISTRESS NOTED. FLACC SCORE 0 AT THIS TIME. PATIENT IS WARM TO TOUCH. ROOM IS NEXT TO NURSING STATION. UPDATED BOARD IN PATIENT'S ROOM. APPRORPIATE SIGNS OUTSIDE OF PATIENT'S ROOM. WILL CONTINUE TO MONITOR PATIENT.
[2017-09-13 08:00] VITALS: BP 120/76
[2017-09-13] MEDS: risperiDONE 1 MG TAB GT SCH ×2 (08:25→21:16)
[2017-09-13] MEDS: LACTOBACILLUS RHAMNOSUS GG 1 EACH CAP PO SCH (08:25)
[2017-09-13] MEDS: carBAMazepine 200 MG TAB GT SCH ×3 (08:25→17:43)
[2017-09-13] MEDS: levETIRAcetam 100 MG/ML ORASYR GT SCH ×2 (08:32→21:15)
--- NOTE | 2017-09-13 08:37 | NUR ---
CRUSHED AM MEDICATIONS. PATIENT ABLE TO TAKE AM MEDICATIONS WITH FOOD. PATIENT TOLERATED WELL. WILL CONTINUE TO MONITOR PATIENT.
[2017-09-13] MEDS: POLYETHYLENE GLYCOL 17 GM/PKT PO SCH (09:00)
[2017-09-13] MEDS: MAGNESIUM HYDROXIDE 2400 MG/30 ML UDC GT SCH (09:00)
--- NOTE | 2017-09-13 09:58 | NUR ---
PATIENT RESTING AT THIS TIME. NO DISTRESS NOTED. WILL CONTINUE TO MONITOR PATIENT.
--- NOTE | 2017-09-13 10:44 | NUR ---
TALKED TO GIOVANNI OF [facility] REGARDING PATIENT'S CT OF CHEST WITH CONTRAST. ELEUTERIO SAID SHE HAD FAXED IT BACK YESTERDAY. SHE WILL FOLLOW UP WITH CLINICAL SERVICES OF THE [facility] TO SEE IF IT WAS FAXED BACK TO OUR [facility]. AWAITING CALL BACK FROM GIOVANNI.
--- NOTE | 2017-09-13 11:41 | NUR ---
PATIENT RESTING IN BED. NO DISTRESS NOTED. WILL CONTINUE TO MONITOR PATIENT.
[2017-09-13 12:00] VITALS: BP 120/70
[2017-09-13] MEDS: NACL 0.9% 1,000 ML IV SCH (12:37)
--- NOTE | 2017-09-13 13:11 | NUR ---
LEFT A VOICEMAIL FOR [facility] REGARDING PATIENT'S CONSENT FOR CT. NO FAX HAS BEEN RECEIVED YET. AWAITING CALL BACK.
--- NOTE | 2017-09-13 14:24 | NUR ---
PATIENT RESTING IN BED. NO DISTRESS NOTED. WILL CONTINUE TO MONITOR PATIENT.
--- NOTE | 2017-09-13 15:46 | NUR ---
SPOKE TO SCOTTY FROM [facility] PATIENT. DR. DOLAN ABLE TO EXPLAIN RISKS AND BENEFITS OF THE CT OF CHEST OVER THE PHONE. AWAITING SIGNED CONSENT TO BE FAXED OVER.
[2017-09-13 16:00] VITALS: BP 135/73
--- NOTE | 2017-09-13 16:56 | NUR ---
PATIENT RESTING IN BED. NO DISTRESS NOTED. WILL CONTINUE TO MONITOR PATIENT.
--- NOTE | 2017-09-13 18:11 | NUR ---
PATIENT RESTING IN BED. NO DISTRESS NOTED. WILL CONTINUE TO MONITOR PATIENT.
--- NOTE | 2017-09-13 19:20 | NUR ---
GAVE REPORT TO NIGHTSHIFT NURSE AT BEDSIDE. PATIENT IN STABLE CONDITION.
--- NOTE | 2017-09-13 19:21 | NUR ---
RECEIVED BEDSIDE REPORT FROM DAY SHIFT NURSE ZEKE RN, PT STABLE, NO DISTRESS NOTED, IV TO L FA 22G RUNNING NS @ 50ML/HR , INFUSING WELL, AND L UA 20G SL PATENT,INTACT, PT ON 2LPM O2 VIA NC, NO SOB, LUNG SOUNDS RHONCHI THROUGHOUT DURING EXPIRATION, PT IS APHASIC, FLACC 0, INITIAL ASSESSMENT, DONE, ALL SAFETY PRECAUTION MET, WILL CONTINUE TO MONITOR.
[2017-09-13 20:00] VITALS: BP 145/87
[2017-09-13] MEDS: SIMVASTATIN 20 MG TAB GT SCH (21:15)
--- NOTE | 2017-09-13 21:16 | NUR ---
DUE MEDICATION GIVEN, PT TOLERATED WELL, NO DISTRESS NOTED, CALL LIGHT WITHIN REACH, WILL CONTINUE TO MONITOR.
[2017-09-14] VITALS: BP 134/91
[2017-09-14] MEDS: PIPER/TAZO 3.375GM/D5W PREMIX 50 ML IV SCH ×4 (00:14→17:36)
[2017-09-14] MEDS: hydrOXYzine HCL 25 MG TAB GT SCH ×4 (00:14→17:36)
--- NOTE | 2017-09-14 00:14 | NUR ---
DUE MEDICATION GIVEN, PT TOLERATED WELL, NO DISTRESS NOTED, CALL LIGHT WITHIN REACH, WILL CONTINUE TO MONITOR.
--- NOTE | 2017-09-14 01:25 | NUR ---
PT LEFT UNIT FOR CT CHEST WITH CONTRAST, PT IN STABLE CONDITION, NO DISTRESS NOTED.
--- NOTE | 2017-09-14 02:11 | NUR ---
PT ARRIVED BACK TO UNIT FROM CT. NO DISTRESS NOTED, PT STABLE, CALL LIGHT WITHIN REACH, WILL CONTINUE TO MONITOR.
--- NOTE | 2017-09-14 03:55 | NUR ---
CHECKED ON PT, PT SLEEPING, NO DISTRESS NOTED, CALL LIGHT WITHIN REACH, WILL CONTINUE TO MONITOR.
[2017-09-14 04:00] VITALS: BP 128/75
[2017-09-14] MEDS: BACLOFEN 10 MG TAB GT SCH ×3 (05:03→21:12)
--- NOTE | 2017-09-14 05:04 | NUR ---
DUE MEDICATION GIVEN, PT TOLERATED WELL, NO DISTRESS NOTED, CALL LIGHT WITHIN REACH, WILL CONTINUE TO MONITOR.
--- NOTE | 2017-09-14 05:11 | NUR ---
CHANGED, CLEANED, AND REPOSITIONED PT, PT TOLERATED WELL, NO DISTRESS NOTED, CALL LIGHT WITHIN REACH, WILL CONTINUE TO MONITOR.
[2017-09-14 06:51] LABS: BASOPHILS # (AUTO) 0.1 K/uL (0.00-0.22); BASOPHILS % (AUTO) 0.8 % (0.0-2.0); EOSINOPHILS # (AUTO) 0.7 K/uL (0-0.4); EOSINOPHILS % (AUTO) 6.4 % (0.0-4.0); HEMATOCRIT 43.1 % (36-52); HEMOGLOBIN 14.5 g/dL (12.0-18.0); LYMPHOCYTES # (AUTO) 2.4 K/uL (2.0-11.5); LYMPHOCYTES % (AUTO) 21.7 % (20.5-51.1); MEAN CORPUSCULAR HEMOGLOBIN 29 pg (27-31); MEAN CORPUSCULAR HGB CONC 34 g/dL (33-37); MEAN CORPUSCULAR VOLUME 85.2 fL (80-94); MONOCYTES # (AUTO) 1.5 K/uL (0.8-1.0); MONOCYTES % (AUTO) 13.7 % (1.7-9.3); NEUTROPHILS # (AUTO) 6.5 K/uL (1.8-7.7); NEUTROPHILS % (AUTO) 57.4 % (42.2-75.2); PLATELET COUNT (AUTO) 224 K/uL (140-450); RED BLOOD CELL COUNT(AUTO) 5.06 MIL/uL (4.20-6.10); RED CELL DISTRIBUTION WIDTH 13.6 % (11.6-13.7); WHITE BLOOD COUNT (AUTO) 11.3 K/uL (4.8-10.8)
--- NOTE | 2017-09-14 07:19 | NUR ---
ENDORSED PT TO DAY SHIFT NURSE ZEKE HORAN, PT STABLE, NO DISTRESS NOTED, CALL LIGHT WITHIN REACH.
--- NOTE | 2017-09-14 07:20 | NUR ---
RECEIVED UPDATE REPORT FROM NIGHTSHIFT NURSE AT BEDSIDE. PATIENT IS ASLEEP AT THIS TIME. PATIENT IS AROUSABLE TO NAME. PATIENT IS APHASIC. PATIENT HAS A G-TUBE IN PLACE THAT IS CLAMPED. PATIENT HAS AN IV 22G ON LEFT FOREARM SALINE LOCK. PATIENT HAS A 20G LEFT AC RUNNING 50 ML/HR NORMAL SALINE. NO DISTRESS NOTED. FLACC SCORE 0 AT THIS TIME. PATIENT IS WARM TO TOUCH. ROOM IS NEXT TO NURSING STATION. UPDATED BOARD IN PATIENT'S ROOM. SIGNS PLACED OUTSIDE OF PATIENT'S ROOM. WILL CONTINUE TO MONITOR PATIENT.
[2017-09-14 07:21] LABS: ANION GAP 13.4 (8-16); CARBON DIOXIDE 27.9 mmol/L (21-32); CREATININE 1.1 mg/dL (0.7-1.3); POTASSIUM 4.3 mmol/L (3.5-5.1)
[2017-09-14 08:00] VITALS: BP 133/73
[2017-09-14] MEDS: carBAMazepine 200 MG TAB GT SCH ×3 (08:05→17:35)
[2017-09-14] MEDS: risperiDONE 1 MG TAB GT SCH ×2 (08:05→21:12)
[2017-09-14] MEDS: LACTOBACILLUS RHAMNOSUS GG 1 EACH CAP PO SCH (08:05)
[2017-09-14] MEDS: NACL 0.9% 1,000 ML IV SCH (08:37)
[2017-09-14] MEDS: POLYETHYLENE GLYCOL 17 GM/PKT PO SCH (09:00)
[2017-09-14] MEDS: MAGNESIUM HYDROXIDE 2400 MG/30 ML UDC GT SCH (09:00)
--- NOTE | 2017-09-14 09:00 | NUR ---
DID NOT ADMINISTER LAXATIVE MEDICATION. PATIENT ABLE TO HAVE LARGE SEMI-FORMED BOWEL MOVEMENTS. WILL CONTINUE TO MONITOR PATIENT.
[2017-09-14] MEDS: levETIRAcetam 100 MG/ML ORASYR GT SCH ×2 (09:09→21:11)
--- NOTE | 2017-09-14 10:46 | NUR ---
PAGED DR. ARELLANO REGARDING PATIENT'S FLUIDS. AWAITING CALL BACK.
[2017-09-14 12:00] VITALS: BP 120/76
--- NOTE | 2017-09-14 15:23 | NUR ---
TRANSFERRED PATIENT TO ROOM 110 BED A.
[2017-09-14 16:00] VITALS: BP 135/75
--- NOTE | 2017-09-14 16:25 | NUR ---
PATIENT RESTING IN BED. NO DISTRESS NOTED. WILL CONTINUE TO MONITOR
--- NOTE | 2017-09-14 19:13 | NUR ---
GAVE REPORT TO NIGHTSHIFT NURSE AT BEDSIDE. PATIENT IN STABLE CONDITION.
--- NOTE | 2017-09-14 19:14 | NUR ---
REPORT RECEIVED FROM DAY SHIFT NURSE ZEKE RN, PT STABLE, NO DISTRESS NOTED, IV TO R HAND 22G RUNNING NS @ 50ML/HR, INFUSING WELL, INTACT, PATENT, PT ON 2LPM O2 VIA NC, NO SOB, PT APHASIC, FLACC 0, INITIAL ASSESSMENT DONE, ALL SAFETY PRECAUTION MET, WILL CONTINUE TO MONITOR.
--- NOTE | 2017-09-14 19:40 | NUR ---
ATTEMPTED TO COLLECT SPUTUM CULTURE. NO SPUTUM WAS ABLE TO BE COLLECTED
[2017-09-14 20:00] VITALS: BP 119/72
[2017-09-14] MEDS: SIMVASTATIN 20 MG TAB GT SCH (21:11)
--- NOTE | 2017-09-14 21:12 | NUR ---
DUE MEDICATION ADMINISTERED PT TOLERATED WELL, NO DISTRESS NOTED, CALL LIGHT WITHIN REACH, WILL CONTINUE TO MONITOR.
[2017-09-15] VITALS: BP 107/69
[2017-09-15] MEDS: PIPER/TAZO 3.375GM/D5W PREMIX 50 ML IV SCH ×3 (00:03→12:46)
[2017-09-15] MEDS: hydrOXYzine HCL 25 MG TAB GT SCH ×3 (00:04→12:46)
--- NOTE | 2017-09-15 00:04 | NUR ---
DUE MEDICATION ADMINISTERED, PT TOLERATED WELL, V/S TAKEN, WNL, PT STABLE NO DISTRESS NOTED, CALL LIGHT WITHIN REACH, WILL CONTINUE TO MONITOR.
--- NOTE | 2017-09-15 02:33 | NUR ---
PT SLEEPING, NO DISTRESS NOTED, CALL LIGHT WITHIN REACH, WILL CONTINUE TO MONITOR.
[2017-09-15 04:00] VITALS: BP 104/67
--- NOTE | 2017-09-15 04:33 | NUR ---
CHECKED ON PT, PT SLEEPING, NO DISTRESS NOTED, V/S WNL, CALL LIGHT WITHIN REACH, WILL CONTINUE TO MONITOR.
[2017-09-15] MEDS: NACL 0.9% 1,000 ML IV SCH (04:42)
[2017-09-15] MEDS: BACLOFEN 10 MG TAB GT SCH ×2 (05:16→12:46)
[2017-09-15 07:12] LABS: BASOPHILS # (AUTO) 0.2 K/uL (0.00-0.22); BASOPHILS % (AUTO) 2.2 % (0.0-2.0); EOSINOPHILS # (AUTO) 0.5 K/uL (0-0.4); EOSINOPHILS % (AUTO) 5.8 % (0.0-4.0); HEMATOCRIT 41.4 % (36-52); LYMPHOCYTES % (AUTO) 22.5 % (20.5-51.1); MEAN CORPUSCULAR HEMOGLOBIN 29 pg (27-31); MEAN CORPUSCULAR HGB CONC 34 g/dL (33-37); MEAN CORPUSCULAR VOLUME 84.2 fL (80-94); MONOCYTES # (AUTO) 1.2 K/uL (0.8-1.0); MONOCYTES % (AUTO) 13.7 % (1.7-9.3); NEUTROPHILS % (AUTO) 55.8 % (42.2-75.2); PLATELET COUNT (AUTO) 234 K/uL (140-450); RED BLOOD CELL COUNT(AUTO) 4.91 MIL/uL (4.20-6.10); RED CELL DISTRIBUTION WIDTH 13.7 % (11.6-13.7)
--- NOTE | 2017-09-15 07:30 | NUR ---
ENDORSED PT TO DAY SHIFT NURSE ANITA RN, PT STABLE, NO DISTRESS NOTED, CALL LIGHT WITHIN REACH.
--- NOTE | 2017-09-15 07:30 | NUR ---
ASSUMED CARE OF PATIENT. HE IS ASLEEP AND AWAKENS EASILY. NO EVIDENCE OF PAIN OR DISCOMFORT NOTED, PATIENT IS APHASIC WITH NO COMMUNICABLE INTENT NOTED, REPOSITIONED FOR COMFORT. WILL CONTINUE TO MONITOR
--- NOTE | 2017-09-15 07:30 | NUR ---
ASSUMED CARE OF PATIENT. PATIENT ASLEEP WITHOUT EVIDENCE OF DISTRESS, RESPIRATIONS REGULAR AND UNLABORED, UNABLE TO MAKE NEEDS KNOWN R/T COGNITIVE DISABILITY. REPOSITIONED FOR COMFORT. WILL CONTINUE TO MONITOR
[2017-09-15 08:36] VITALS: BP 119/63
[2017-09-15] MEDS: MAGNESIUM HYDROXIDE 2400 MG/30 ML UDC GT SCH (09:10)
[2017-09-15] MEDS: levETIRAcetam 100 MG/ML ORASYR GT SCH (09:11)
[2017-09-15] MEDS: risperiDONE 1 MG TAB GT SCH (09:11)
[2017-09-15] MEDS: POLYETHYLENE GLYCOL 17 GM/PKT PO SCH (09:11)
[2017-09-15] MEDS: LACTOBACILLUS RHAMNOSUS GG 1 EACH CAP PO SCH (09:12)
[2017-09-15] MEDS: carBAMazepine 200 MG TAB GT SCH ×2 (09:12→12:46)
--- NOTE | 2017-09-15 10:00 | NUR ---
[employer] Manager Notes: I attempted to contact Patient's [place] Regional Manager Review Vanessa Siu at . No response and I left her a Voicemail MSG with my contact information and a request for a call back.
[2017-09-15 10:24] LABS: ANION GAP 12.9 (8-16); CARBON DIOXIDE 28.4 mmol/L (21-32); POTASSIUM 4.3 mmol/L (3.5-5.1)
--- NOTE | 2017-09-15 11:36 | NUR ---
PT AWAKE ALERT SUCTION THROUGH TRACH PT JUST DRY DRY DRY UNABLE TO GET ANY SPUTUM RN MATT AWARE
--- NOTE | 2017-09-15 12:00 | NUR ---
PATIENT REMAINS WITHOUT EVIDENCE OF DISTRES, AM CARE GIVEN. KEPT CLEAN AND DRY AFTER EACH EPISODE OF INCONTINENCE, REPOSITIONED FOR COMFORT.
--- NOTE | 2017-09-15 12:30 | NUR ---
CO-ORDINATOR FROM [facility] CALL IN AND WAS MADE AWARE OF D/C TODAY. THEY WILL COM E AND PICK PATIENT UP AROUND 3PM
[2017-09-15 12:40] VITALS: BP 112/65
--- NOTE | 2017-09-15 13:15 | NUR ---
Chart reviewed by case management social worker.
[2017-09-15] MEDS ORDERED: LEVO750T2 PO (14:19)
[2017-09-15] MEDS ORDERED: CLIN300C2 PO (14:19)
[2017-09-15] MEDS ORDERED: CARB200T7 GT (14:19)
[2017-09-15] MEDS ORDERED: KEP500L GT (14:19)
--- NOTE | 2017-09-15 15:40 | NUR ---
patient discharged back to [facility] facility via facility transportation. Discharge indtructions given to staff member at bedside alone with discharge package and prescriptions. patient was clean and dry, iv removed intact and tele unit removed also. no evidence of pain or distress noted
== END 2017-09-15 13:40 | DRG 720 ==
LOC: MED 13:13 → MTU 17:47
PROVIDERS: ADMIT General Practice; ATTEND General Practice
DX: A41.9 Sepsis, unspecified organism (principal); J96.00 Acute respiratory failure, unspecified whether with hypoxia or hypercapnia; G93.6 Cerebral edema; J69.0 Pneumonitis due to inhalation of food and vomit; J90 Pleural effusion, not elsewhere classified; E44.0 Moderate protein-calorie malnutrition; G40.909 Epilepsy, unspecified, not intractable, without status epilepticus; F41.9 Anxiety disorder, unspecified; E78.5 Hyperlipidemia, unspecified; H54.62 Unqualified visual loss, left eye, normal vision right eye; R13.10 Dysphagia, unspecified; G80.0 Spastic quadriplegic cerebral palsy; E86.0 Dehydration; K59.00 Constipation, unspecified; Z68.23 Body mass index [BMI] 23.0-23.9, adult; Z93.1 Gastrostomy status; Z98.2 Presence of cerebrospinal fluid drainage device; Z88.2 Allergy status to sulfonamides; Z79.899 Other long term (current) drug therapy
CPT/HCPCS: 36415; 70450; 71045; 71260; 74018; 76604; 80048; 80053; 80156; 80173; 81003; 82150; 83036; 83690; 83735; 83880; 84100; 84436; 84439; 84443; 84479; 85025; 85610; 85730; 87040; 87070; 87081; 87205; 96361; 96365; 96375; 99285; C1758; J0692; J1644; J1885; J2060; J2543; J7030; J7060; Q0092; Q9967

== ENCOUNTER 2021-11-12 10:59 | Inpatient (IN) | payer MEDICAID ==
[~2021-11-12] VITALS: Ht 134.6 cm; Wt 51.8 kg
--- NOTE | 2021-11-12 | NUR ---
SCHEDULED MEDICATION GIVEN. PT TOLERATED WELL. WILL CONTINUE TO MONITOR. Addendum: 11/13/21 at 0549 by Chetan Mcfadden RN DATE SHOULD BE 11/13/21
[~2021-11-12 10:59] MED LIST: ATA10 PO; BACL10TA4 PO; CALC-38 PO; CARB200T7 GT; CHLO1TAB42 PO; CLIN300C2 PO; ESOM20EC PO; IBUP100S26 PO; KEP500L GT; LEVO750T2 PO; MAGN400S60 PO; MIRABULK PO; MULT10VI3 IV; RISP0.5T3 PO; VIT1TABL36 PO; WHEA1POW16 PO
--- NOTE | 2021-11-12 11:00 | NUR ---
PT TAKEN TO BED 10 BY EMS, PLACED ON VENDING MACHINE SERVICER, RT AT BEDSIDE
[2021-11-12 11:08] VITALS: BP 141/98
--- NOTE | 2021-11-12 11:15 | NUR ---
26 Y/O MALE BIBA FROM [facility] [place] W/ REPORTED ELEVATED D-DIMER, PER SNF PAPERWORK LABS DRAWN 11/11/21. D-DIMER 2430, PT IN NON-VERBAL, CONTRACTURES TO ALL EXTREMITIES. TRACH TO VENT. SEIZURE PRECAUTIONS IN PLACE, ON INTERLOCKING AND SIGNAL MECHANIC. ALLERGY: SULFA PMH: CEREBRAL PALSY, ACUTE RESPIRATORY DISTRESS, HYDROCEPHALUS, DYSPHAGIA, SEIZURES, THROMBOCYTOPENIA, HDL
--- NOTE | 2021-11-12 11:31 | NUR ---
RECEIVED PT FROM [facility] AT 1040. VENT SETTING FROM SNF IS ACVC TV350, RR20, +5, 32% FIO2. HE IS CURRENTLY ON THE CARESCAPE 2263. SPUTUM SAMPLE WAS OBTAINED AND SENT TO LAB. VENT IS PLUGGED INTO A RED OUTLET, WHEELS ARE LOCKED, ALARMS ARE SET AND AUDIBLE, AMBUBAG AT BEDSIDE. NO DISTRESS AND PT IS RESTING COMFORTABLY.
--- NOTE | 2021-11-12 11:34 | NUR ---
IMAGING AT BEDSIDE
--- NOTE | 2021-11-12 11:35 | NUR ---
US AT BEDSIDE
--- NOTE | 2021-11-12 11:46 | NUR ---
LAB AT BEDSIDE
--- NOTE | 2021-11-12 11:47 | NUR ---
BILL CEE) COLLECTED AND HANDED TO PHYSICS PROFESSOR
[2021-11-12] MEDS ORDERED: ROB PO (11:55)
[2021-11-12] MEDS ORDERED: METO25TA PO ×2 (11:55)
[2021-11-12] MEDS ORDERED: OMEP20EC11 PO (11:55)
[2021-11-12] MEDS ORDERED: ROB1 PO (11:55)
[2021-11-12] MEDS ORDERED: ASCO500T95 PO (11:55)
[2021-11-12] MEDS ORDERED: ALBU0.0912 IH (11:55)
[2021-11-12] MEDS ORDERED: CARB200T1 PO (11:55)
[2021-11-12] MEDS ORDERED: ONDA-188 PO (11:55)
[2021-11-12] MEDS ORDERED: ATRMDI INH (11:55)
[2021-11-12] MEDS ORDERED: SCOP0.333 TP (11:55)
[2021-11-12] MEDS ORDERED: ATOR10TA PO (11:55)
[2021-11-12 12:09] LABS: BASOPHILS # (AUTO) 0.1 K/uL (0.00-0.22); BASOPHILS % (AUTO) 0.7 % (0.0-2.0); EOSINOPHILS # (AUTO) 0.5 K/uL (0-0.4); EOSINOPHILS % (AUTO) 3.7 % (0.0-4.0); HEMOGLOBIN 14.5 g/dL (12.0-18.0); LYMPHOCYTES # (AUTO) 2.4 K/uL (2.0-11.5); LYMPHOCYTES % (AUTO) 19.6 % (20.5-51.1); MEAN CORPUSCULAR HEMOGLOBIN 27 pg (27-31); MEAN CORPUSCULAR HGB CONC 33 g/dL (33-37); MEAN CORPUSCULAR VOLUME 80.7 fL (80-94); MONOCYTES % (AUTO) 16.4 % (1.7-9.3); NEUTROPHILS # (AUTO) 7.3 K/uL (1.8-7.7); NEUTROPHILS % (AUTO) 59.6 % (42.2-75.2); PLATELET COUNT (AUTO) 207 K/uL (140-450); RED BLOOD CELL COUNT(AUTO) 5.45 MIL/uL (4.20-6.10); RED CELL DISTRIBUTION WIDTH 15.7 % (11.6-13.7); WHITE BLOOD COUNT (AUTO) 12.3 K/uL (4.8-10.8)
[2021-11-12 12:17] LABS: ANION GAP 10.6 (8-16); CARBON DIOXIDE 27.3 mmol/L (21-32); CREATININE 0.5 mg/dL (0.6-1.3); POTASSIUM 3.9 mmol/L (3.5-5.1)
--- NOTE | 2021-11-12 13:09 | NUR ---
TAKEN TO CT VIA GURNEY, TRANSPORTED ON CHRONIC CARE NURSE.
--- NOTE | 2021-11-12 13:30 | NUR ---
TRANSFERRED PT FROM ER TO CT AND BACK SAFELY. NO COMPLICATIONS. VENT PLUGGED INTO RED OUTLET, WHEELS ARE LOCKED, ALARMS ARE AUDIBLE. AMBU BAG AT BEDSIDE.
--- NOTE | 2021-11-12 13:42 | NUR ---
PT RETURNED FROM CT
[2021-11-12] MEDS ORDERED: ACETAMINOPHEN EXTRA STRENGTH 500 MG TAB PO ONE (14:15)
[2021-11-12] MEDS ORDERED: CEFEPIME 1,000 MG in DEXTROSE 5% 50 ML IV ONE (14:35)
[2021-11-12] MEDS ORDERED: VANCOMYCIN 1,000 MG in DEXTROSE 5% 250 ML IV ONE (14:35)
--- NOTE | 2021-11-12 14:47 | NUR ---
LAB AT BEDSIDE
[2021-11-12] MEDS ORDERED: CEFEPIME 1,000 MG VIAL ONE (14:57)
[2021-11-12] MEDS ORDERED: CRUSHER, PILL MC ONE (15:19)
[2021-11-12] MEDS ORDERED: ACETAMINOPHEN 325 MG TAB PO PRN ×2 (15:25→15:30)
[2021-11-12] MEDS ORDERED: ONDANSETRON 4 MG/2 ML VIAL IVP PRN ×2 (15:25→15:30)
[2021-11-12] MEDS ORDERED: MORPHINE SULFATE 2 MG/ML SYR IVP PRN (15:30)
[2021-11-12] MEDS ORDERED: POTASSIUM CHLORIDE 10 MEQ TABER PO PRN (15:30)
[2021-11-12] MEDS ORDERED: DOCUSATE SODIUM 100 MG GELCAP PO PRN (15:30)
[2021-11-12] MEDS ORDERED: ZOLPIDEM 10 MG TAB PO PRN (15:30)
--- NOTE | 2021-11-12 15:30 | NUR ---
SPOKE TO VIBHA HORAN OF [facility] INFORM RN OF PT STATUS AND ADMISSION
--- NOTE | 2021-11-12 15:37 | NUR ---
RT AT BEDSIDE
[2021-11-12] MEDS ORDERED: VANCOMYCIN PER PHARMACY MC PRN (15:40)
--- NOTE | 2021-11-12 15:41 | NUR ---
TELEPHONE CALL WITH DR THIBODEAUX, INQUIRED IF THE PT WILL HAVE STRAIGHT CATH FOR URINE, STATED TO CANCEL URINALYSIS ORDER, NOTED AND CARRIED OUT
[2021-11-12] MEDS ORDERED: VANCOMYCIN 1,000 MG VIAL ONE (15:56)
[2021-11-12] MEDS: MORPHINE SULFATE 2 MG/ML SYR IVP PRN (16:44)
--- NOTE | 2021-11-12 17:37 | NUR ---
Patient will be admitted to care of Dr De Leon. Admited to ICU. Will go to room 2. Belongings list completed. Report to MARLINE Chang.
--- NOTE | 2021-11-12 17:40 | NUR ---
TRANSFERRED PT FROM ER TO ICU BED 2. NO COMPLICATIONS AND PT IS RESTING COMFORTABLY. CURRENT VENT SETTING ARE ACVC TV350, RR20, +5 AND 32% FIO2. WHEELS ARE LOCKED, PLUGGED INTO RED OUTLET, ALARMS ARE AUDIBLE, AMBUBAG AT BEDSIDE.
[2021-11-12 19:06] VITALS: BP 121/72
--- NOTE | 2021-11-12 19:15 | NUR ---
RECEIVED PATIENT ON BED OBTUNDED; WITH HOB ELEVATED TO 30 DEGREE; ON TRACH TO VENT AT 30% FIO2 SO2 100%. CARDIACSCOPE SHOWS ON SINUS TACHY HR 119/MIN NO ARRHYTHMIAS SEEN WITH SALINE LOCK G20 IN PLACE TO RIGHT AC; PATENT AND INTACT. ABDOMEN IS SOFT, HYPOACTIVE BOWEL SOUNDS. G TUBE IN PLACE AND ITS' CLAMPED. WITH CONDOM CATH TO GRAVITY DRAINAGE BAG, DRAINING WELL TO CLEAR YELLOW URINE OUTPUT. ALL EXTREMITIES IS CONTRACTED.
[2021-11-12 20:00] VITALS: BP 136/70
--- NOTE | 2021-11-12 20:00 | NUR ---
NOTED WITH NAUSEA AND VOMITING; ICE CHIPS GIVEN; AFFORDED RELIEF. Addendum: 11/12/21 at 2137 by Clarisa Spear RN WRONG ENTRY
--- NOTE | 2021-11-12 20:30 | NUR ---
TRANSFERRED TO TELEMETRY [id number] PER BED IN FAIR CONDITION; ENDORSED TO MARLINE NUNEZ FOR CONTINUITY OF CARE.
--- NOTE | 2021-11-12 20:31 | NUR ---
PT TRANSFERRED FROM ICU TO UNIT.RECEIVED PATIENT REPORT FROM ICU NURSE CORY,PT OBTUNDED, WITH HOB ELEVATED TO 30 DEGREES. ON TRACH TO VENT AT 30% FIO2 SO2 100%. SINUS TACHY ON TELE.SALINE LOCKED G20 IN PLACE TO RIGHT AC,G TUBE IN PLACE AND ITS' CLAMPED. WITH CONDOM CATH TO GRAVITY DRAINAGE BAG, DRAINING WELL TO CLEAR YELLOW URINE OUTPUT.BUE AND LUE EXTREMITIES IS CONTRACTED.ALL PRECAUTIONS IN PLACE. WILL CONTINUE TO MONITOR.
--- NOTE | 2021-11-12 20:47 | NUR ---
PATIENT'S FAMILY LIANG REIDELE WAS NOTIFIED AND INFORMED OF PATIENT'S TRANSFER TO TELEMETRY.
[2021-11-12] MEDS: levETIRAcetam 100 MG/ML ORASYR GT SCH (21:55)
[2021-11-12] MEDS: PIPERACILLIN/TAZOBACTAM 3.375 GM in DEXTROSE 5% 50 ML IV SCH (21:55)
[2021-11-12] MEDS: METOPROLOL 25 MG TAB PO SCH (21:56)
[2021-11-12] MEDS: BACLOFEN 10 MG TAB PO SCH (21:56)
[2021-11-12] MEDS ORDERED: PIPERACILLIN/TAZOBACTAM 3.375 GM VIAL IV ONE (21:57)
--- NOTE | 2021-11-12 22:00 | NUR ---
SCHEDULED MEDICATION GIVEN. PT TOLERATED WELL. WILL CONTINUE TO MONITOR.
[2021-11-13] VITALS: BP_SYST 122; BP_SYST 136; BP_DIAS 70; BP_DIAS 72
[2021-11-13] MEDS ORDERED: MAG SULF 2000 MG/WATER PREMIX 50 ML IV PRN
--- NOTE | 2021-11-13 | NUR ---
SCHEDULED MEDICATION GIVEN. PT TOLERATED WELL. WILL CONTINUE TO MONITOR.
[2021-11-13] MEDS: NACL 0.9% 1,000 ML IV SCH (01:49)
--- NOTE | 2021-11-13 02:00 | NUR ---
PT REPOSITIONED.PT TOLERATED WELL. ALL PRECAUTIONS IN PLACE.WILL CONTINUE TO MONITOR.
[2021-11-13] MEDS ORDERED: NACL 0.9% 1,000 ML IV ONE (02:05)
[2021-11-13 04:00] VITALS: BP 119/62
--- NOTE | 2021-11-13 04:00 | NUR ---
PT ASLEEP. NO DISTRESS NOTED. VITAL SIGNS STABLE. ALL PRECAUTIONS IN PLACE. WILL CONTINUE TO MONITOR.
[2021-11-13] MEDS ORDERED: PIPERACILLIN/TAZOBACTAM 3.375 GM VIAL IV ONE (04:20)
[2021-11-13] MEDS: PIPERACILLIN/TAZOBACTAM 3.375 GM in DEXTROSE 5% 50 ML IV SCH ×3 (04:49→20:02)
--- NOTE | 2021-11-13 05:15 | NUR ---
SCHEDULED MEDICATION GIVEN. PT TOLERATED WELL. WILL CONTINUE TO MONITOR.
[2021-11-13 06:15] LABS: BASOPHILS # (AUTO) 0.1 K/uL (0.00-0.22); BASOPHILS % (AUTO) 0.8 % (0.0-2.0); EOSINOPHILS # (AUTO) 0.4 K/uL (0-0.4); EOSINOPHILS % (AUTO) 3.2 % (0.0-4.0); HEMATOCRIT 44.6 % (36-52); HEMOGLOBIN 14.6 g/dL (12.0-18.0); LYMPHOCYTES # (AUTO) 2.2 K/uL (2.0-11.5); MEAN CORPUSCULAR HEMOGLOBIN 27 pg (27-31); MEAN CORPUSCULAR HGB CONC 33 g/dL (33-37); MEAN CORPUSCULAR VOLUME 81.2 fL (80-94); MONOCYTES % (AUTO) 17.1 % (1.7-9.3); NEUTROPHILS # (AUTO) 6.8 K/uL (1.8-7.7); NEUTROPHILS % (AUTO) 59.9 % (42.2-75.2); PLATELET COUNT (AUTO) 231 K/uL (140-450); RED BLOOD CELL COUNT(AUTO) 5.49 MIL/uL (4.20-6.10); RED CELL DISTRIBUTION WIDTH 15.5 % (11.6-13.7); WHITE BLOOD COUNT (AUTO) 11.4 K/uL (4.8-10.8)
--- NOTE | 2021-11-13 06:23 | NUR ---
PT IS STABLE. NO ACUTE EVENTS THROUGHOUT THE NIGHT. NO DISTRESS NOTED. ALL PRECAUTIONS IN PLACE.WILL CONTINUE TO MONITOR.
[2021-11-13 06:24] LABS: ANION GAP 13.9 (8-16); CARBON DIOXIDE 25.9 mmol/L (21-32); CREATININE 0.5 mg/dL (0.6-1.3); POTASSIUM 3.8 mmol/L (3.5-5.1)
--- NOTE | 2021-11-13 07:00 | NUR ---
RECEIVED PT ON ACVC 350, RR20, +5, 30%. SATURATION IS 99%. TACHYCARDIC AT 121. VENT PLUGGED INTO RED OUTLET, ALARMS ARE SET AND AUDIBLE, AMBUBAG AT BED SIDE. [id number] PT TACHYPNEIC AT 30 AND DIAPHORETIC, HEART RATE 130. NOTIFIED NURSE. VENT PRESSURES WERE GOOD AND VOLUMES WERE GOOD WELL.
[2021-11-13] MEDS: VANCOMYCIN HCL 1.25 GM in DEXTROSE 5% 250 ML IV SCH ×3 (07:28)
--- NOTE | 2021-11-13 07:30 | NUR ---
RECEIVED REPORT FROM TAIL BOARD WORKER. PATIENT IN BED WITH HOB ELEVATED. PT OBTUNDED; ON TRACH TO VENT AT 30% FIO2 SO2 100%. ON TELE MONITORING SINUS TACHY HR 139/MIN NO ARRHYTHMIAS SEEN. WITH SALINE LOCK G20 IN PLACE TO RIGHT AC; PATENT AND INTACT. ABDOMEN IS SOFT, HYPOACTIVE BOWEL SOUNDS. G TUBE IN PLACE AND ITS' CLAMPED. WITH CONDOM CATH TO GRAVITY DRAINAGE BAG, DRAINING WELL TO CLEAR YELLOW URINE OUTPUT. ALL EXTREMITIES ARE CONTRACTED.
[2021-11-13 08:00] VITALS: BP 144/86
[2021-11-13] MEDS: levETIRAcetam 100 MG/ML ORASYR GT SCH ×2 (08:53→20:01)
[2021-11-13] MEDS: METOPROLOL 25 MG TAB PO SCH ×2 (08:53→20:38)
[2021-11-13] MEDS: POLYETHYLENE GLYCOL 17 GM/PKT PO SCH (08:54)
[2021-11-13] MEDS: MORPHINE SULFATE 2 MG/ML SYR IVP PRN (08:54)
--- NOTE | 2021-11-13 09:00 | NUR ---
DUE MEDS GIVEN, TOLERATED WELL. ORAL CARE DONE
--- NOTE | 2021-11-13 09:10 | NUR ---
HR 130s, MORPHINE GIVEN ORDERED
--- NOTE | 2021-11-13 09:11 | NUR ---
PATIENT HAS BEEN SCREENED AND CATEGORIZED HIGH NUTRITION RISK. PATIENT WILL BE SEEN WITHIN 1-2 DAYS OF ADMISSION. MARYBETH KHAN RD
--- NOTE | 2021-11-13 10:30 | NUR ---
PT APPEARS COMFORTABLE, HR 109
--- NOTE | 2021-11-13 11:44 | NUR ---
11/13/21 RD INITIAL ASSESSMENT COMPLETED PLEASE REFER TO NUTRITION ASSESSMENT UNDER CARE ACTIVITY FOR ESTIMATED NUTRITIONAL NEEDS. 1. WHEN/IF MEDICALLY APPROPRIATE, RECOMMEND JEVITY 1.2 WITH A GOAL RATE OF 45 ML/HR WITH PROSOURCE TID -FWF: 150 ML Q6H OR PER MD -START AT 20 ML/HR AND INCREASE BY 20 ML Q4H TOLERATED -WILL PROVIDE 100% OF ESTIMATED NUTRIENT NEEDS 2. MONITOR GI SYMPTOMS AND GASTRIC RESIDUALS 3. RD TO FOLLOW-UP 2-3 DAYS, HIGH RISK MARYBETH KHAN RD
[2021-11-13 12:00] VITALS: BP 136/74
--- NOTE | 2021-11-13 13:32 | NUR ---
NO APPARENT DISTRESS, NO SOB
[2021-11-13 16:00] VITALS: BP 140/87
--- NOTE | 2021-11-13 17:00 | NUR ---
NO SIGNIFICANT CHANGE NOTED, RESTING IN BED, NO S/S OF PAIN, NO RESPIRATORY DISTRESS
--- NOTE | 2021-11-13 19:10 | NUR ---
REPORT GIVEN BY AM RN. PATIENT WITH EYES CLOSED. NO S/SX OF PAIN NOR DISCOMFORT. TRACH TO VENT, NO ACUTE RESPIRATORY DISTRESS NOTED. G TUBE FEEDING OF JEVITY 1.2 AT 20 ML/HR, PLACEMENT VERIFIED VIA AUSCULTATION, NO RESIDUAL NOTED AT THIS TIME, HEAD OF THE BED AT 35 DEGREES. BED IN THE LOWEST AND LOCKED POSITION FOR SAFETY, CALL LIGHT WITHIN REACH.
[2021-11-13 20:00] VITALS: BP 144/84
[2021-11-13] MEDS: BACLOFEN 10 MG TAB PO SCH (20:03)
--- NOTE | 2021-11-13 21:13 | NUR ---
TRACH AND ORAL SUCTIONING DONE, MODERATE WHITE THICK SECRETION NOTED. ORAL CARE RENDERED.
--- NOTE | 2021-11-13 23:22 | NUR ---
NO RESIDUAL FROM G -TUBE, INCREASED FEEDING TO 30 ML/HR ORDERED. G-TUBE SITE CLEANED AND CHANGED DRESSING. HEAD OF THE BED ET 35 DEGREES. CALL LIGHT IN REACH.
[2021-11-14] VITALS: BP 131/71
[2021-11-14] MEDS: NACL 0.9% 1,000 ML IV SCH ×2 (01:00→09:51)
--- NOTE | 2021-11-14 01:13 | NUR ---
PATIENT ASLEEP. NO ACUTE RESPIRATORY DISTRESS NOTED. HEAD OF THE BED ELEVATED. CALL LIGHT WITHIN REACH.
--- NOTE | 2021-11-14 02:04 | NUR ---
PULLED UP AND REPOSITIONED PATIENT. G- TUBE FEEDING TOLERATED WELL, NO RESIDUAL NOTED AT THIS TIME, HEAD OF THE BED ELEVATED FOR ASPIRATION PRECAUTION.
[2021-11-14] MEDS ORDERED: PIPERACILLIN/TAZOBACTAM 3.375 GM VIAL IV ONE (03:47)
[2021-11-14 04:00] VITALS: BP 145/86
[2021-11-14] MEDS: PIPERACILLIN/TAZOBACTAM 3.375 GM in DEXTROSE 5% 50 ML IV SCH ×3 (04:09→20:59)
--- NOTE | 2021-11-14 04:23 | NUR ---
NO RESIDUAL FROM G-TUBE, INCREASED FEEDING TO 45 ML/HR (GOAL RATE) ORDERED. HEAD OF THE BED ELEVATED FOR ASPIRATION PRECAUTION.
--- NOTE | 2021-11-14 06:07 | NUR ---
PATIENT IS ASLEEP. ORAL AND TRACH SUCTIONING DONE NEEDED. NO ACUTE RESPIRATORY DISTRESS NOTED. ALL NEEDS ATTENDED TO. NO RESIDUAL NOTED FROM G-TUBE. SAFETY PRECAUTIONS MAINTAINED DURING THE SHIFT, CALL LIGHT REMAINED WITHIN REACH,
[2021-11-14 06:27] LABS: BASOPHILS # (AUTO) 0.1 K/uL (0.00-0.22); BASOPHILS % (AUTO) 0.5 % (0.0-2.0); EOSINOPHILS # (AUTO) 0.5 K/uL (0-0.4); EOSINOPHILS % (AUTO) 4.2 % (0.0-4.0); HEMATOCRIT 42.2 % (36-52); HEMOGLOBIN 13.9 g/dL (12.0-18.0); LYMPHOCYTES # (AUTO) 1.2 K/uL (2.0-11.5); LYMPHOCYTES % (AUTO) 11.2 % (20.5-51.1); MEAN CORPUSCULAR HEMOGLOBIN 27 pg (27-31); MEAN CORPUSCULAR HGB CONC 33 g/dL (33-37); MEAN CORPUSCULAR VOLUME 81.3 fL (80-94); MONOCYTES % (AUTO) 18.5 % (1.7-9.3); NEUTROPHILS # (AUTO) 7.1 K/uL (1.8-7.7); NEUTROPHILS % (AUTO) 65.6 % (42.2-75.2); PLATELET COUNT (AUTO) 175 K/uL (140-450); RED BLOOD CELL COUNT(AUTO) 5.18 MIL/uL (4.20-6.10); RED CELL DISTRIBUTION WIDTH 15.7 % (11.6-13.7)
[2021-11-14 07:15] LABS: ANION GAP 17.2 (8-16); CREATININE 1.6 mg/dL (0.6-1.3); POTASSIUM 3.2 mmol/L (3.5-5.1)
--- NOTE | 2021-11-14 07:17 | NUR ---
REPORT GIVEN TO AM NURSE. PATIENT IS ASLEEP. NOT IN ANY FORM OF DISTRESS.
[2021-11-14] MEDS ORDERED: POTASSIUM CHLORIDE 20% 40 MEQ/15 ML UDC GT PRN (07:30)
--- NOTE | 2021-11-14 07:30 | NUR ---
RECEIVED REPORT FROM WELLNESS MANAGER. PATIENT IN BED WITH HOB ELEVATED. PT OBTUNDED; ON TRACH TO VENT AT 30% FIO2 SO2 100%. ON TELE MONITORING SINUS RHYTHM. NO ARRHYTHMIAS SEEN. WITH SALINE LOCK G20 IN PLACE TO DANO AND RH 22G RUNNING NS AT 45 ML/HR; PATENT AND INTACT. ABDOMEN IS SOFT, ACTIVE BOWEL SOUNDS. G TUBE IN PLACE, RUNNING TUBE FEEDING AT GOAL RATE. WITH CONDOM CATH TO GRAVITY DRAINAGE BAG, DRAINING WELL TO CLEAR YELLOW URINE OUTPUT. ALL EXTREMITIES ARE CONTRACTED.
[2021-11-14 07:31] LABS: WHITE BLOOD COUNT (AUTO) 10.8 K/uL (4.8-10.8)
[2021-11-14 08:00] VITALS: BP 141/90
[2021-11-14] MEDS ORDERED: POTASSIUM CHLORIDE 20% 40 MEQ/15 ML UDC ONE (08:01)
[2021-11-14] MEDS: METOPROLOL 25 MG TAB PO SCH ×2 (08:23→20:58)
[2021-11-14] MEDS: levETIRAcetam 100 MG/ML ORASYR GT SCH ×2 (08:23→20:58)
[2021-11-14] MEDS: POLYETHYLENE GLYCOL 17 GM/PKT PO SCH (08:24)
--- NOTE | 2021-11-14 08:50 | NUR ---
SEEN AND EXAMINED BY DR THIBODEAUX
--- NOTE | 2021-11-14 09:00 | NUR ---
due meds given, tolerated well
--- NOTE | 2021-11-14 11:20 | NUR ---
NO APPARENT DISTRESS, FLACC 0
[2021-11-14 12:00] VITALS: BP 133/86
--- NOTE | 2021-11-14 13:20 | NUR ---
JOSE CARE DONE BY RECESSING MACHINE OPERATOR, WITH LARGE BM
[2021-11-14 16:00] VITALS: BP 123/72
--- NOTE | 2021-11-14 16:30 | NUR ---
FLACC 0, NO SOB
--- NOTE | 2021-11-14 18:06 | NUR ---
NO SIGNIFICANT CHANGE NOTED, RESTING IN BED, NO S/S OF PAIN, NO RESPIRATORY DISTRESS
--- NOTE | 2021-11-14 19:30 | NUR ---
RECEIVED BEDSIDE REPORT FROM DAY SHIFT RN FOR CONTINUITY OF CARE. PT IS ASLEEP. PT IS TRACH TO VENT SATING 95%. VENT SETTINGS: FIO2 28%, VT 350, RT 20, PEEP 5. ON A/C VC. PT IS CONTRACTED ON ALL EXTREMITIES. PT HAS LEFT HAND 22 GAUGE AND RIGHT UPPER ARM 20 GAUGE. PT IS ON NS 50CC/HR. FEEDING RUNNING PER MD ORDER. BED AT THE LOWEST POSITION. HEAD OF BED RAISED. WILL CONTINUE TO MONITOR THE PT.
[2021-11-14 20:00] VITALS: BP 130/74
[2021-11-14] MEDS: BACLOFEN 10 MG TAB PO SCH (20:57)
--- NOTE | 2021-11-14 21:15 | NUR ---
SCHEDULE MEDS GIVEN. NO ADVERSE REACTION NOTED. FEEDING CHANGED. WILL CONTINUE TO MONITOR THE PT.
[2021-11-15] VITALS: BP 123/68
--- NOTE | 2021-11-15 00:29 | NUR ---
OBSERVED PT. PT IS ASLEEP. PT IS SATING 96%. VISIBLE RISE OF CHEST AND FALL. FLACC 0. WILL CONTINUE TO MONITOR THE PT.
[2021-11-15] MEDS: NACL 0.9% 1,000 ML IV SCH (00:30)
--- NOTE | 2021-11-15 02:14 | NUR ---
PT IS SLEEPING COMFORTABLY IN BED. PT IS NOT IN ANY RESPIRATORY DISTRESS. CALL LIGHT WITHIN REACH. ALL SAFETY MEASURES TAKEN. WILL CONTINUE TO MONITOR THE PT.
[2021-11-15 04:00] VITALS: BP 131/60
[2021-11-15] MEDS: PIPERACILLIN/TAZOBACTAM 3.375 GM in DEXTROSE 5% 50 ML IV SCH ×3 (04:06→20:47)
--- NOTE | 2021-11-15 04:15 | NUR ---
SCHEDULE MEDS GIVEN. NO ADVERSE REACTION NOTED. FLACC 0. IVF RUNNING PER MD ORDER. FEEDING RUNNING PER MD ORDER. WILL CONTINUE TO MONITOR THE PT.
[2021-11-15 06:00] LABS: ANION GAP 15.2 (8-16); CARBON DIOXIDE 22.9 mmol/L (21-32); CREATININE 1.6 mg/dL (0.6-1.3); POTASSIUM 4.1 mmol/L (3.5-5.1)
[2021-11-15 06:10] LABS: BASOPHILS # (AUTO) 0.1 K/uL (0.00-0.22); BASOPHILS % (AUTO) 0.7 % (0.0-2.0); EOSINOPHILS # (AUTO) 0.3 K/uL (0-0.4); EOSINOPHILS % (AUTO) 2.8 % (0.0-4.0); HEMATOCRIT 41.3 % (36-52); HEMOGLOBIN 13.4 g/dL (12.0-18.0); LYMPHOCYTES # (AUTO) 1.3 K/uL (2.0-11.5); LYMPHOCYTES % (AUTO) 10.5 % (20.5-51.1); MEAN CORPUSCULAR HEMOGLOBIN 26 pg (27-31); MEAN CORPUSCULAR HGB CONC 32 g/dL (33-37); MEAN CORPUSCULAR VOLUME 81.7 fL (80-94); MONOCYTES # (AUTO) 2.3 K/uL (0.8-1.0); MONOCYTES % (AUTO) 18.6 % (1.7-9.3); NEUTROPHILS # (AUTO) 8.4 K/uL (1.8-7.7); NEUTROPHILS % (AUTO) 67.4 % (42.2-75.2); PLATELET COUNT (AUTO) 209 K/uL (140-450); RED BLOOD CELL COUNT(AUTO) 5.06 MIL/uL (4.20-6.10); RED CELL DISTRIBUTION WIDTH 15.7 % (11.6-13.7); WHITE BLOOD COUNT (AUTO) 12.5 K/uL (4.8-10.8)
--- NOTE | 2021-11-15 07:19 | NUR ---
ENDORSED PT TO DAY SHIFT RN FOR CONTINUITY OF CARE. PT IS STABLE.
--- NOTE | 2021-11-15 07:20 | NUR ---
RECEIVED BEDSIDE REPORT FROM POULTRY VETERINARIAN NURSE FOR CONTINUOUS OF CARE, PT RESTING, NO DISTRESS NOTED, IV TO RIGHT UA 20G PATENT INTACT SL, AND LEFT HAND 22G PATENT INTACT INFUSING NS @ 50ML/HR, INFUSING WELL. PT ON TRACH TO VENT ACVC FIO2 28%, TV 350 R20 PEEP 5 SATURATING @ 93%, NO SOB NOTED, GT IN PLACE WITH FEEDING JEVITY @ 45ML/HR H2O 150ML Q6H, NO RESIDUAL NOTED. INITIAL ASSESSMENT DONE, ALL SAFETY PRECAUTION MET, CALL LIGHT WITHIN REACH, WILL CONTINUE TO MONITOR.
[2021-11-15 08:00] VITALS: BP 147/93
[2021-11-15] MEDS: levETIRAcetam 100 MG/ML ORASYR GT SCH ×2 (08:53→20:47)
[2021-11-15] MEDS: METOPROLOL 25 MG TAB PO SCH ×2 (08:56→20:46)
[2021-11-15] MEDS: POLYETHYLENE GLYCOL 17 GM/PKT PO SCH (08:57)
--- NOTE | 2021-11-15 08:57 | NUR ---
DUE MEDICATIONS ADMINISTERED PT TOLERATED WELL, NO DISTRESS NOTED, WILL CONTINUE TO MONITOR.
[2021-11-15] MEDS ORDERED: VANCOMYCIN 750 MG in DEXTROSE 5% 250 ML IV SCH (09:00)
--- NOTE | 2021-11-15 09:08 | NUR ---
PT. WITH LOW MARY SCALE AT HIGH RISK, CONTINUE TO FOLLOW PRESSURE INJURY PREVENTION INTERVENTIONS. -POSITIONING: TURN AND REPOSITION PATIENT Q 2H OR SOONER USE PILLOWS TO KEEP BONY PROMINENCES FROM DIRECT CONTACT WITH SURFACES USE REPOSITIONING WEDGES TO PROVIDE 30-DEGREE ANGLE FOR SIDE LYING POSITIONS OFFLOADING OR FOAM DRESSING TO ALL TUBING TO PREVENT MEDICAL DEVICES RELATED PRESSURE INJURY -RE-EVALUATING AND MANAGING INCONTINENCE MONITOR SKIN CONDITION DURING POSITION CHANGE DO NOT MASSAGE REDNESS, BONY PROMINENCES FREQUENT JOSE-CARE AND PROVIDE BARRIER CREAMS PRN IF SOILING MOISTURE CONTROL BY OFFER BED PINTO/URINAL /ABSORBENT PAD TO WICK AND HOLD MOISTURE KEEP SKIN DRY AND PROTECT FROM FRICTION -MANAGE FRICTION/SHEAR/MOBILITY KEEP HOB AT THE LOWEST LEVEL OF ELEVATION NO MORE THAN 30 DEGREE UNLESS OTHERWISE CONTRAINDICATED USE LIFT SHEET OR TRANSFER DEVICE TO MOVE PATIENT AND PREVENT LATERAL SHEER. PROTECT HEELS, ELBOWS BONY PROMINENCES WITH SKIN BERRIES OR FOAM DRESSING IF EXPOSED TO FRICTION OFFLOAD BILATERAL HEELS BY PLACING PILLOWS UNDER CALVES AT ALL TIMES, UNLESS OTHERWISE CONTRAINDICATED -PRESSURE REDISTRIBUTION SURFACE THERAPY KENIA ISOFLEX MATTRESS -NUTRITION: PLEASE FOLLOW RD RECOMMENDATIONS AND OFFER NUTRITION SUPPLEMENTS IF ORDERED. PLEASE CONTACT WOUND CARE NURSE FOR ANY QUESTION AND CHANGE OF WOUND CONDITION.
[2021-11-15 12:00] VITALS: BP 138/82
--- NOTE | 2021-11-15 12:18 | NUR ---
DUE MEDICATIONS ADMINISTERED, PT TOLERATED WELL, NO DISTRESS NOTED, WILL CONTINUE TO MONITOR.
[2021-11-15] MEDS: NACL 0.45% 1,000 ML IV SCH (12:59)
--- NOTE | 2021-11-15 15:52 | NUR ---
DC PLANNING: THE PATIENT WAS [place] [facility] [place]/O ELEVATED D-DIMER. CT ANGIO OF CHEST SHOWS GROUND GLASS OPACITIES AND PATCHY CONSOLIDATION, NEGATIVE FOR PE. H/O CEREBRAL PALSY, QUADRIPLEGIA, SZ DISORDER AND LEFT EYE BLINDNESS. WBC'S 12.3, TRACH/VENT/PEG. STARTED ON IVF'S AND ZOSYN, VANCO PER PHARMACY. ORDERS FOR PULMONOLOGY CONSULT, NA+ TODAY 150, CR 1.6, MG+ 2.6. PATIENTS FIO2 ON VENT TODAY IS 28%. PRELIM SPUTUM CULTURES SHOW GM NEGATIVE RODS. PLAN IS FOR THE PATIENT TO RETURN [place] [facility] [place]INICALLY STABLE, CM WILL FOLLOW. Addendum: 11/17/21 at 1158 by Jacki Dumont CM DC PLANNING: WBC'S TRENDING DOWN AT 12.6, NA+ 150, SPUTUM CULTURE ON 11/12 POSITIVE FOR ESBL AND PSEUDOMONAS, PRELIMINARY BLOOD CULTURES NEGATIVE. REMAINS ON VANCO AND ZOSYN, PATIENT TRACH TO VENT/PEG, AC MODE, FIO2 28%. DC PLAN IS FOR THE PATIENT TO RETURN [place] [facility] [place]IC[place] ST[place], CM WILL FOLLOW. Addendum: 11/17/21 at 1338 by Jacik Dumont CM DC PLANNING: PATIENT TO DC BACK [place] [facility] [place], ROOM 2B DR MACIEL WILL FOLLOW. NUMBER TO CALL REPORT IS [phone]. CCT/RT TRANSPORT ARRANGED WITH [facility] COORDINATOR TIME AROUND 1530. CM WILL FOLLOW.
[2021-11-15 16:00] VITALS: BP 126/70
--- NOTE | 2021-11-15 19:15 | NUR ---
ENDORSED PT TO BIODIESEL PROCESSING TECHNICIAN NURSE FOR CONTINUOUS OF CARE.
--- NOTE | 2021-11-15 19:20 | NUR ---
RECEIVED BEDSIDE REPORT FROM DAY SHIFT RN FOR CONTINUITY OF CARE. PT IS RESTING IN BED TRACH TO VENT. FIO2 28%, VT 350, RT 20, PEEP 5. PT IS ON TUBE FEEDING JEVITY 1.2 45 CC/HR, H2O 150 CC Q6H WITH PROSOURCE TID. PT HAS LEFT HAND 22 GAUGE INFUSING 1/2 NS 80 CC/HR. PT ALSO HAS DANO 20 GAUGE. BED AT THE LOWEST POSITION. HEAD OF BED RAISED. WILL CONTINUE TO MONITOR THE PT.
[2021-11-15 20:00] VITALS: BP 130/80
[2021-11-15] MEDS: BACLOFEN 10 MG TAB PO SCH (20:47)
--- NOTE | 2021-11-15 21:00 | NUR ---
ALL DUE MEDS GIVEN. NO ADVERSE REACTION NOTED. [facility] 0. WILL CONTINUE TO MONITOR THE PT.
--- NOTE | 2021-11-15 23:00 | NUR ---
FEEDING CHANGED. FLACC 0. WILL CONTINUE TO MONITOR THE PT.
--- NOTE | 2021-11-15 23:25 | NUR ---
ENDORSED PT TO COMMUNICATIONS OPERATOR LISA SUTHERLAND FOR CONTINUITY OF CARE. PT IS TABLE.
--- NOTE | 2021-11-15 23:28 | NUR ---
RECEIVED REPORT FROM WILL RN, PATIENT WAS STABLE AT SHIFT REPORT. PATIENT NOTED IN BED ASLEEP. SEMI-CONTRACTED ARMS DRAWN IN AND LEGS SPREAD OUT LIKE FROG. PATIENT NOTED ON VENT WITH SETTINGS AT FIO2 28, VT 350 RATE 20 AND PEEP 5. CHESTS RISING AND FALLING WITHOUT INCIDENT. NO NOTED S/S OF PAIN/DISCOMFORT AT THIS TIME. PATIENT WAS NOTED CLEAN AND DRY WITH BED CHUX FOR INCONTINENT EPISODES. HEAD OF BED AT 45 DEGREES D/T G TUBE FEEDING AT 45MLS WITH 150 OF WATER EVERY 6 HOURS. SIDE RAILS UP X 4 FOR SEIZURE PRECAUTION. NO REPORTED NOR NOTED SEIZURE ACTIVITY AT THIS TIME. PATIENT IS UNABLE TO USE CALL LIGHT, NURSING WILL FREQUENT THIS ROOM FOR ANTICIPATED NEEDS AND WANTS. [email or web address]
[2021-11-16] VITALS: BP 125/90
[2021-11-16] MEDS: NACL 0.45% 1,000 ML IV SCH ×2 (01:20→13:42)
--- NOTE | 2021-11-16 01:24 | NUR ---
DURING ROUNDS NURSING NOTED PATIENT REMAINED ASLEEP. NO NOTED DISTRESS. NO NOTED FACIAL GRIMACE TO INDICATE PAIN/DISCOMFORT. [email or web address]
--- NOTE | 2021-11-16 03:41 | NUR ---
NURSING NOTED PATIENT REMAINED ASLEEP. NO NOTED DISTRESS. NO NOTED FACIAL GRIMACE TO INDICATE PAIN/DISCOMFORT. [email or web address]
[2021-11-16 04:00] VITALS: BP 133/76
[2021-11-16] MEDS: PIPERACILLIN/TAZOBACTAM 3.375 GM in DEXTROSE 5% 50 ML IV SCH ×3 (04:06→21:20)
[2021-11-16 05:52] LABS: BASOPHILS # (AUTO) 0.1 K/uL (0.00-0.22); BASOPHILS % (AUTO) 0.5 % (0.0-2.0); EOSINOPHILS # (AUTO) 0.3 K/uL (0-0.4); EOSINOPHILS % (AUTO) 1.9 % (0.0-4.0); HEMATOCRIT 41.2 % (36-52); HEMOGLOBIN 13.4 g/dL (12.0-18.0); LYMPHOCYTES # (AUTO) 2.1 K/uL (2.0-11.5); LYMPHOCYTES % (AUTO) 13.7 % (20.5-51.1); MEAN CORPUSCULAR HEMOGLOBIN 27 pg (27-31); MEAN CORPUSCULAR HGB CONC 33 g/dL (33-37); MEAN CORPUSCULAR VOLUME 81.7 fL (80-94); MONOCYTES # (AUTO) 2.5 K/uL (0.8-1.0); MONOCYTES % (AUTO) 16.7 % (1.7-9.3); NEUTROPHILS # (AUTO) 10.3 K/uL (1.8-7.7); NEUTROPHILS % (AUTO) 67.2 % (42.2-75.2); PLATELET COUNT (AUTO) 188 K/uL (140-450); RED BLOOD CELL COUNT(AUTO) 5.04 MIL/uL (4.20-6.10); RED CELL DISTRIBUTION WIDTH 15.3 % (11.6-13.7); WHITE BLOOD COUNT (AUTO) 15.3 K/uL (4.8-10.8)
--- NOTE | 2021-11-16 05:58 | NUR ---
NURSING NOTED PATIENT IN BED ASLEEP. NO S/S OF PAIN/DISCOMFORT. KEPT CLEAN AND DRY. ALL NEEDS ANTICIPATED. NURSING WILL INFORM THE ONCOMING SHIFT TO FREQUENT THIS ROOM BECAUSE PATIENT CANNOT USE THE CALL LIGHT WHEN NEEDED. [email or web address]
[2021-11-16 07:05] LABS: ANION GAP 16.6 (8-16); CARBON DIOXIDE 23.4 mmol/L (21-32); CREATININE 1.3 mg/dL (0.6-1.3)
--- NOTE | 2021-11-16 07:25 | NUR ---
GAVE SHIFT REPORT TO QUINTIN HORAN, PATIENT WAS STABLE DURING SHIFT REPORT. [email or web address]
--- NOTE | 2021-11-16 07:30 | NUR ---
RECEIVED BEDSIDE REPORT FROM WILDFIRE PREVENTION SPECIALIST NURSE FOR CONTINUOUS OF CARE, PT RESTING, NO DISTRESS NOTED, IV TO RIGHT UA 20G PATENT INTACT SL, AND LEFT HAND 22G PATENT INTACT INFUSING 1/2NS @ 80ML/HR, INFUSING WELL. PT ON TRACH TO VENT ACVC FIO2 28%, TV 350 R20 PEEP 5 SATURATING @ 98%, NO SOB NOTED, GT IN PLACE WITH FEEDING JEVITY @ 45ML/HR H2O 150ML Q6H, NO RESIDUAL NOTED. INITIAL ASSESSMENT DONE, ALL SAFETY PRECAUTION MET, CALL LIGHT WITHIN REACH, WILL CONTINUE TO MONITOR.
[2021-11-16 08:00] VITALS: BP 142/85
[2021-11-16] MEDS: METOPROLOL 25 MG TAB PO SCH ×2 (08:51→21:19)
[2021-11-16] MEDS: levETIRAcetam 100 MG/ML ORASYR GT SCH ×2 (08:51→21:18)
[2021-11-16] MEDS: POLYETHYLENE GLYCOL 17 GM/PKT PO SCH (08:52)
[2021-11-16] MEDS ORDERED: VANCOMYCIN 750 MG in DEXTROSE 5% 250 ML IV SCH (09:00)
--- NOTE | 2021-11-16 09:22 | NUR ---
DUE MEDICATIONS ADMINISTERED, PT TOLERATED WELL WILL CONTINUE TO MONITOR.
[2021-11-16 12:00] VITALS: BP 143/76
--- NOTE | 2021-11-16 12:24 | NUR ---
DUE MEDICATIONS ADMINISTERED, PT TOLERATED WELL, WILL CONTINUE TO MONITOR
--- NOTE | 2021-11-16 14:05 | NUR ---
11/16/21 RD FOLLOW UP COMPLETED PLEASE REFER TO NUTRITION ASSESSMENT UNDER CARE ACTIVITY FOR ESTIMATED NUTRITIONAL NEEDS. 1. RECOMMEND CHANGING TF FORMULA TO GLUCERNA 1.2 WITH A GOAL RATE OF 45 ML/HR WITH PROSOURCE TID -FWF: 150 ML Q6H OR PER MD -START AT 20 ML/HR AND INCREASE BY 20 ML Q4H TOLERATED -WILL PROVIDE 100% OF ESTIMATED NUTRIENT NEEDS 2. MONITOR NUTRITION-RELATED LAB VALUES 3. RD TO FOLLOW-UP 2-3 DAYS, HIGH RISK MARYBETH KHAN RD
--- NOTE | 2021-11-16 15:00 | NUR ---
DC PLANNING SW UNABLE TO GATHER COLLATERAL INFORMATION PATIENT IS ON TRAYC.SW OUTREACHED TO [facility] AND SPOKE WITH ISIDRO ([facility] ADMIN) TO GATHER COLLATERAL INFORMATION. ISIDRO REPORTED THAT PATIENT IS IN LONG TERM, SUB ACUTE CARE SINCE 10/19/21. PATIENT WAS PREVIOUSLY AT [facility], ISIDRO UNABLE TO RECALL NAME OF FACILITY. PATIENT IS [facility]. ISIDRO REPORTS PT HAS NO FAMILY. PT [facility] WORKER IS RINA LAO [phone]. REG[facility]AL CENTER WORKER IS AWARE THAT PT IS IN THE HOSPITAL. DC PLAN IS FOR PATIENT TO RETURN TO [facility], ONCE CLEARED FOR DC.
[2021-11-16 16:00] VITALS: BP 138/75
--- NOTE | 2021-11-16 19:19 | NUR ---
RECEIVED ENDORSEMENT FROM DAY SHIFT NURSE FOR CONTINUITY OF CARE. PT IS ON BED AWAKE. HE IS NON VERBAL AND NON AMBULATORY. PT IS WITH TRACHEOSTOMY TO VENT. ON GTUBE FEEDING GLUCERNA 1.2 GINI AT 45ML/HR. WATER FLUSH 150ML EVERY 6 HRS, INTACT AND PATENT. IV FLUID 0.45% NS INFUSING WELL ON LEFT HAND AT 80ML/HR.
--- NOTE | 2021-11-16 19:20 | NUR ---
ENDORSED PT TO EARLY CHILDHOOD EDUCATION SPECIALIST NURSE FOR CONTINUOUS OF CARE.
[2021-11-16 20:00] VITALS: BP 133/70
--- NOTE | 2021-11-16 20:20 | NUR ---
PT IS AWAKE AND NOTED SWEATING UNUSUALLY, VITAL SIGNS CHECK: T-97.0, B/P-133/70, P-117, R-20, O2 SAT-96%, BLOOD SUGAR-114.
[2021-11-16] MEDS: BACLOFEN 10 MG TAB PO SCH (21:18)
--- NOTE | 2021-11-16 21:30 | NUR ---
PT IS ON NORMAL CONDITION, SWEATING IS DIMINISHED. NO CHANGE OF CONDITION. NO CHANGE OF SKIN COLOR.
[2021-11-17] VITALS: BP 132/83
--- NOTE | 2021-11-17 00:20 | NUR ---
PT IS SLEEPING, NO SOB OR DISTRESS. PT IS ON RELAX CONDITION.
[2021-11-17] MEDS: NACL 0.45% 1,000 ML IV SCH (02:10)
[2021-11-17 04:00] VITALS: BP 132/83
[2021-11-17] MEDS: PIPERACILLIN/TAZOBACTAM 3.375 GM in DEXTROSE 5% 50 ML IV SCH ×2 (05:19→12:56)
[2021-11-17 05:25] LABS: BASOPHILS # (AUTO) 0.1 K/uL (0.00-0.22); BASOPHILS % (AUTO) 0.9 % (0.0-2.0); EOSINOPHILS # (AUTO) 0.4 K/uL (0-0.4); EOSINOPHILS % (AUTO) 3.3 % (0.0-4.0); HEMATOCRIT 40.9 % (36-52); HEMOGLOBIN 13.4 g/dL (12.0-18.0); LYMPHOCYTES # (AUTO) 1.9 K/uL (2.0-11.5); LYMPHOCYTES % (AUTO) 14.7 % (20.5-51.1); MEAN CORPUSCULAR HEMOGLOBIN 27 pg (27-31); MEAN CORPUSCULAR HGB CONC 33 g/dL (33-37); MEAN CORPUSCULAR VOLUME 81.2 fL (80-94); MONOCYTES # (AUTO) 2.1 K/uL (0.8-1.0); MONOCYTES % (AUTO) 16.8 % (1.7-9.3); NEUTROPHILS # (AUTO) 8.1 K/uL (1.8-7.7); NEUTROPHILS % (AUTO) 64.3 % (42.2-75.2); PLATELET COUNT (AUTO) 187 K/uL (140-450); RED BLOOD CELL COUNT(AUTO) 5.03 MIL/uL (4.20-6.10); RED CELL DISTRIBUTION WIDTH 15.8 % (11.6-13.7); WHITE BLOOD COUNT (AUTO) 12.6 K/uL (4.8-10.8)
[2021-11-17 06:14] LABS: ANION GAP 14.1 (8-16); CARBON DIOXIDE 25.5 mmol/L (21-32); CREATININE 1.1 mg/dL (0.6-1.3); POTASSIUM 3.6 mmol/L (3.5-5.1)
--- NOTE | 2021-11-17 07:00 | NUR ---
RECEIVED PT ON ACVC 350, RR 20, +5, 28%FIO2. WHEELS ARE LOCKED AND VENT IS PLUGGED INTO RED OUTLET, AMBUBAG AT BEDSIDE, ALARMS ARE SET AND AUDIBLE. PT RESTING COMFORTABLY. NO DISTRESS NOTED.
--- NOTE | 2021-11-17 07:30 | NUR ---
ENDORSED PT TO DAY SHIFT NURSE FOR CONTINUITY OF PT CARE. ALL SAFETY MEASURES IN PLACE. CALL LIGHT WITHIN THE REACH.
--- NOTE | 2021-11-17 07:30 | NUR ---
RECEIVED REPORT FROM CHIEF PASSENGER SHIP STEWARD/STEWARDESS. PATIENT IN BED WITH HOB ELEVATED. PT OBTUNDED; ON TRACH TO VENT AT 30% FIO2 SO2 100%. ON TELE MONITORING ST
[2021-11-17 08:00] VITALS: BP 138/84
[2021-11-17] MEDS ORDERED: VANCOMYCIN PER PHARMACY MC PRN (08:05)
[2021-11-17] MEDS ORDERED: VANCOMYCIN 750 MG in DEXTROSE 5% 250 ML IV SCH ×2 (09:00)
[2021-11-17] MEDS: levETIRAcetam 100 MG/ML ORASYR GT SCH (09:53)
[2021-11-17] MEDS: METOPROLOL 25 MG TAB PO SCH (09:53)
[2021-11-17] MEDS: POLYETHYLENE GLYCOL 17 GM/PKT PO SCH (09:54)
--- NOTE | 2021-11-17 11:30 | NUR ---
RECEIVED REPORT FROM MORALES HORAN FOR CONTINUOUS OF CARE, PT RESTING, NO DISTRESS NOTED, TRACH TO VENT, STABLE. WILL CONTINUE TO MONITOR.
[2021-11-17 12:00] VITALS: BP 127/73
--- NOTE | 2021-11-17 15:30 | NUR ---
REPORT GIVEN TO [facility], SPOKE TO JOSIAH.
--- NOTE | 2021-11-17 15:37 | NUR ---
PT BEING PICKED UP BY [facility] FOR TRANSFER DC BACK TO [facility]. PT IS STABLE CONDITION. IV TAKEN OUT, CATH INTACT. WRISTBAND TAKEN OFF.
== END 2021-11-17 15:40 | DRG 130 ==
LOC: MED 10:59 → MMU 15:28 → MIC 17:24 → MTU 20:31
PROVIDERS: ADMIT Family Medicine; ATTEND Family Medicine
PROC: 5A1955Z Respiratory Ventilation, Greater than 96 Consecutive Hours (ICD-10-PCS; principal; 2021-11-12)
DX: J15.6 Pneumonia due to other Gram-negative bacteria (principal); G82.50 Quadriplegia, unspecified; Z93.0 Tracheostomy status; G40.909 Epilepsy, unspecified, not intractable, without status epilepticus; J96.10 Chronic respiratory failure, unspecified whether with hypoxia or hypercapnia; Z20.822 Contact with and (suspected) exposure to COVID-19; Z99.11 Dependence on respirator [ventilator] status; Z88.2 Allergy status to sulfonamides; Z79.899 Other long term (current) drug therapy; J15.0 Pneumonia due to Klebsiella pneumoniae; J15.1 Pneumonia due to Pseudomonas
CPT/HCPCS: 36415; 36556; 71045; 71275; 76770; 80048; 80202; 82948; 83735; 85025; 87040; 87070; 87081; 87205; 89220; 93925; 93970; 94002; 94003; 96365; 96367; 99285; J0692; J1644; J2270; J2543; J3370; J7060; Q0092; Q9967

== ENCOUNTER 2022-11-25 02:15 | Inpatient (IN) | payer MEDICAID ==
[~2022-11-25] VITALS: Ht 129.5 cm; Wt 50.8 kg
[2022-11-25] VITALS (16 sets, daily range): BP systolic 107–150; BP diastolic 61–85; PULSE 77–103; RESP 17–22; TEMP 98–100.9; O2SAT 97–100
[~2022-11-25 02:15] MED LIST changes: +ALBU0.0912 IH; +ASCO500T95 PO; -ATA10 PO; +ATOR10TA PO; +ATRMDI INH; +CARB200T1 PO; -CARB200T7 GT; -CLIN300C2 PO; -IBUP100S26 PO; -LEVO750T2 PO; +METO25TA PO; -MULT10VI3 IV; +ONDA-188 PO; +ROB1 PO; +SCOP0.333 TP; -WHEA1POW16 PO
[2022-11-25] MEDS ORDERED: NACL 0.9% 1,000 ML IV ONE (02:30)
[2022-11-25 03:14] LABS: CHLORIDE 101 mmol/L (98-107); POTASSIUM 3.8 mmol/L (3.5-5.1); SODIUM SERUM 136 mmol/L (136-145)
[2022-11-25 03:15] LABS: BASOPHILS # (AUTO) 0.1 K/uL (0.00-0.22); BASOPHILS % (AUTO) 0.7 % (0.0-2.0); EOSINOPHILS # (AUTO) 0.3 K/uL (0-0.4); EOSINOPHILS % (AUTO) 1.5 % (0.0-4.0); HEMATOCRIT 42.7 % (36-52); HEMOGLOBIN 14.1 g/dL (12.0-18.0); LYMPHOCYTES # (AUTO) 2.3 K/uL (2.0-11.5); LYMPHOCYTES % (AUTO) 11.6 % (20.5-51.1); MEAN CORPUSCULAR HEMOGLOBIN 27 pg (27-31); MEAN CORPUSCULAR HGB CONC 33 g/dL (33-37); MEAN CORPUSCULAR VOLUME 80.9 fL (80-94); MONOCYTES # (AUTO) 2.1 K/uL (0.8-1.0); MONOCYTES % (AUTO) 10.5 % (1.7-9.3); NEUTROPHILS # (AUTO) 14.8 K/uL (1.8-7.7); NEUTROPHILS % (AUTO) 75.7 % (42.2-75.2); PLATELET COUNT (AUTO) 168 K/uL (140-450); RED BLOOD CELL COUNT(AUTO) 5.28 MIL/uL (4.20-6.10); RED CELL DISTRIBUTION WIDTH 16.6 % (11.6-13.7); WHITE BLOOD COUNT (AUTO) 19.5 K/uL (4.8-10.8)
[2022-11-25 03:27] LABS: LACTIC ACID 1.9 mmol/L (0.4-2.0)
[2022-11-25 03:33] LABS: ALANINE AMINOTRANSFERASE 67 U/L (12-78); ALBUMIN 2.5 g/dL (3.4-5.0); ALKALINE PHOSPHATASE 273 U/L (50-136); ANION GAP 9.8 (8-16); ASPARTATE AMINOTRANSFERASE 32 U/L (15-37); CALCIUM 8.3 mg/dL (8.5-10.1); CARBON DIOXIDE 29.1 mmol/L (21-32); CREATININE 0.7 mg/dL (0.6-1.3); GFR ARICAN-AMERICAN 174 mL/min (>90); GFR NON ARICAN-AMERICAN 144 mL/min (>90); GLUCOSE 101 mg/dL (74-106); LIPASE 53 U/L (73-393); TOTAL BILIRUBIN 0.4 mg/dL (0.0-1.0); TOTAL PROTEIN, SERUM 7.8 g/dL (6.4-8.2); UREA NITROGEN, BLOOD 15 mg/dL (7-18)
[2022-11-25] MEDS ORDERED: CLINDAMYCIN 900MG/D5W PM 50 ML IV ONE (04:00)
[2022-11-25] MEDS ORDERED: PIPERACILLIN/TAZOBACTAM 3.375 GM in DEXTROSE 5% 50 ML IV ONE (04:00)
[2022-11-25] MEDS ORDERED: PIPERACILLIN/TAZOBACTAM 3.375 GM VIAL IV ONE (04:06)
[2022-11-25] MEDS ORDERED: HYDROcodone/APAP 5/325 MG 1 TAB TAB PO PRN ×2 (05:25→05:30)
[2022-11-25] MEDS ORDERED: LORazepam 2 MG/ML VIAL IVP PRN ×2 (05:25→05:30)
[2022-11-25] MEDS ORDERED: ALBUTEROL 0.083% 2.5 MG/3 ML NEBU INH PRN ×2 (05:25→05:30)
[2022-11-25] MEDS ORDERED: ACETAMINOPHEN 325 MG TAB PO PRN ×2 (05:25→05:30)
[2022-11-25] MEDS ORDERED: MORPHINE SULFATE 2 MG/ML SYR IVP PRN ×2 (05:25→05:30)
[2022-11-25] MEDS ORDERED: NACL 0.9% 1,000 ML IV SCH (05:25)
[2022-11-25] MEDS ORDERED: ONDANSETRON 4 MG/2 ML VIAL IVP PRN ×2 (05:25→05:30)
[2022-11-25 09:03] LABS: APPEARANCE,URINE CLEAR (CLEAR); BILIRUBIN,URINE NEGATIVE (NEGATIVE); BLOOD, URINE 1+ (NEGATIVE); COLOR,URINE YELLOW (YELLOW); LEUKOCYTE ESTERASE ,URINE NEGATIVE (NEGATIVE); NITRITE, URINE NEGATIVE (NEGATIVE); PH,URINE 8.5 (5.0-9.0); PROTEIN,URINE TRACE (NEGATIVE); UGLUCOSE NEGATIVE (NEGATIVE); UROBILINOGEN,URINE 0.2 EU/dL (0.2 - 1)
[2022-11-25 09:14] LABS: BACTERIA,URINE 10-30 (MOD) /HPF (None Seen); SQUAMOUS EPITHELIAL CELL,UR 0-3 (FEW) /LPF (0-3 (FEW)); WBC,URINE 0-5 /HPF (0-5)
[2022-11-25] MEDS: levETIRAcetam 100 MG/ML ORASYR GT SCH ×2 (10:47→21:51)
[2022-11-25] MEDS: ATORVASTATIN 20 MG TAB PO SCH (10:48)
[2022-11-25] MEDS: risperiDONE 1 MG TAB GT SCH ×2 (10:49→21:51)
[2022-11-25] MEDS: METOPROLOL 50 MG TAB GT SCH ×2 (10:49→21:56)
[2022-11-25] MEDS: NACL 0.9% 1,000 ML IV SCH ×3 (11:04→22:31)
[2022-11-25] MEDS ORDERED: PIPERACILLIN/TAZOBACTAM 2.25 GM in DEXTROSE 5% 50 ML IV SCH (13:00)
[2022-11-25] MEDS: PIPERACILLIN/TAZOBACTAM 2.25 GM in DEXTROSE 5% 50 ML IV SCH ×2 (13:43→21:56)
[2022-11-26] VITALS (18 sets, daily range): BP systolic 125–145; BP diastolic 72–89; PULSE 74–112; RESP 17–21; TEMP 98.3–98.8; O2SAT 95–100
[2022-11-26] MEDS: PIPERACILLIN/TAZOBACTAM 2.25 GM in DEXTROSE 5% 50 ML IV SCH ×3 (05:08→21:22)
[2022-11-26 06:19] LABS: BASOPHILS # (AUTO) 0.1 K/uL (0.00-0.22); BASOPHILS % (AUTO) 0.6 % (0.0-2.0); EOSINOPHILS # (AUTO) 0.2 K/uL (0-0.4); EOSINOPHILS % (AUTO) 2.8 % (0.0-4.0); HEMATOCRIT 40.5 % (36-52); HEMOGLOBIN 13.4 g/dL (12.0-18.0); LYMPHOCYTES # (AUTO) 2.7 K/uL (2.0-11.5); LYMPHOCYTES % (AUTO) 31.2 % (20.5-51.1); MEAN CORPUSCULAR HEMOGLOBIN 27 pg (27-31); MEAN CORPUSCULAR HGB CONC 33 g/dL (33-37); MEAN CORPUSCULAR VOLUME 81.5 fL (80-94); MONOCYTES # (AUTO) 1.1 K/uL (0.8-1.0); MONOCYTES % (AUTO) 13.2 % (1.7-9.3); NEUTROPHILS # (AUTO) 4.5 K/uL (1.8-7.7); NEUTROPHILS % (AUTO) 52.2 % (42.2-75.2); PLATELET COUNT (AUTO) 162 K/uL (140-450); RED BLOOD CELL COUNT(AUTO) 4.97 MIL/uL (4.20-6.10); RED CELL DISTRIBUTION WIDTH 16.3 % (11.6-13.7); WHITE BLOOD COUNT (AUTO) 8.6 K/uL (4.8-10.8)
[2022-11-26 06:56] LABS: ALBUMIN 2.2 g/dL (3.4-5.0); ANION GAP 13.5 (8-16); CALCIUM 8.1 mg/dL (8.5-10.1); CARBON DIOXIDE 22.3 mmol/L (21-32); CREATININE 0.8 mg/dL (0.6-1.3); MAGNESIUM 2.1 mg/dL (1.8-2.4); PHOSPHORUS 3.3 mg/dL (2.5-4.9); POTASSIUM 3.8 mmol/L (3.5-5.1); TOTAL BILIRUBIN 0.5 mg/dL (0.0-1.0); TOTAL PROTEIN, SERUM 7.4 g/dL (6.4-8.2)
[2022-11-26] MEDS: levETIRAcetam 100 MG/ML ORASYR GT SCH ×2 (09:43→21:18)
[2022-11-26] MEDS: METOPROLOL 50 MG TAB GT SCH ×2 (09:44→21:18)
[2022-11-26] MEDS: PANTOPRAZOLE 40 MG INJ VIAL IVP SCH ×2 (09:45→21:22)
[2022-11-26] MEDS: risperiDONE 1 MG TAB GT SCH ×2 (09:46→21:17)
[2022-11-26] MEDS: ATORVASTATIN 20 MG TAB PO SCH (09:47)
[2022-11-26] MEDS: NACL 0.9% 1,000 ML IV SCH (10:01)
[2022-11-26] MEDS: DEXT 5% / NACL 0.9% 500 ML IV SCH (22:09)
[2022-11-27] VITALS (16 sets, daily range): BP systolic 99–145; BP diastolic 55–88; PULSE 74–115; RESP 20–24; TEMP 96–98.5; O2SAT 97–100
[2022-11-27] MEDS: DEXT 5% / NACL 0.9% 500 ML IV SCH (00:50)
[2022-11-27] MEDS: PIPERACILLIN/TAZOBACTAM 2.25 GM in DEXTROSE 5% 50 ML IV SCH ×3 (04:30→21:31)
[2022-11-27] MEDS: levETIRAcetam 100 MG/ML ORASYR GT SCH ×2 (09:44→21:26)
[2022-11-27] MEDS: PANTOPRAZOLE 40 MG INJ VIAL IVP SCH ×2 (09:45→21:26)
[2022-11-27] MEDS: ATORVASTATIN 20 MG TAB PO SCH (09:49)
[2022-11-27] MEDS: risperiDONE 1 MG TAB GT SCH ×2 (09:49→21:26)
[2022-11-27] MEDS: METOPROLOL 50 MG TAB GT SCH ×2 (09:49→21:26)
[2022-11-27 10:56] LABS: BASOPHILS # (AUTO) 0.1 K/uL (0.00-0.22); BASOPHILS % (AUTO) 0.7 % (0.0-2.0); EOSINOPHILS # (AUTO) 0.3 K/uL (0-0.4); HEMATOCRIT 40.7 % (36-52); HEMOGLOBIN 13.3 g/dL (12.0-18.0); LYMPHOCYTES # (AUTO) 2.1 K/uL (2.0-11.5); LYMPHOCYTES % (AUTO) 18.4 % (20.5-51.1); MEAN CORPUSCULAR HEMOGLOBIN 27 pg (27-31); MEAN CORPUSCULAR HGB CONC 33 g/dL (33-37); MEAN CORPUSCULAR VOLUME 81.3 fL (80-94); MONOCYTES # (AUTO) 1.4 K/uL (0.8-1.0); MONOCYTES % (AUTO) 12.3 % (1.7-9.3); NEUTROPHILS # (AUTO) 7.5 K/uL (1.8-7.7); NEUTROPHILS % (AUTO) 65.6 % (42.2-75.2); PLATELET COUNT (AUTO) 164 K/uL (140-450); RED CELL DISTRIBUTION WIDTH 16.2 % (11.6-13.7); WHITE BLOOD COUNT (AUTO) 11.5 K/uL (4.8-10.8)
[2022-11-27 11:08] LABS: ANION GAP 13.2 (8-16); CALCIUM 8.3 mg/dL (8.5-10.1); CARBON DIOXIDE 23.3 mmol/L (21-32); CREATININE 0.7 mg/dL (0.6-1.3); POTASSIUM 3.5 mmol/L (3.5-5.1)
[2022-11-27 11:19] LABS: MAGNESIUM 1.8 mg/dL (1.8-2.4); PHOSPHORUS 2.7 mg/dL (2.5-4.9)
[2022-11-27] MEDS: DEXT 5% / NACL 0.9% 1,000 ML IV SCH (22:36)
[2022-11-28] VITALS (15 sets, daily range): BP systolic 111–136; BP diastolic 57–83; PULSE 75–96; RESP 18–24; TEMP 97.6–98.6; O2SAT 97–100
[2022-11-28] MEDS: DEXT 5% / NACL 0.9% 1,000 ML IV SCH ×3 (00:14→12:43)
[2022-11-28] MEDS: PIPERACILLIN/TAZOBACTAM 2.25 GM in DEXTROSE 5% 50 ML IV SCH ×3 (05:18→21:05)
[2022-11-28 05:39] LABS: CALCIUM 8.2 mg/dL (8.5-10.1); CARBON DIOXIDE 22.7 mmol/L (21-32); CREATININE 0.7 mg/dL (0.6-1.3); POTASSIUM 3.7 mmol/L (3.5-5.1)
[2022-11-28 05:50] LABS: BASOPHILS # (AUTO) 0.1 K/uL (0.00-0.22); BASOPHILS % (AUTO) 0.7 % (0.0-2.0); EOSINOPHILS # (AUTO) 0.7 K/uL (0-0.4); EOSINOPHILS % (AUTO) 7.6 % (0.0-4.0); HEMOGLOBIN 13.5 g/dL (12.0-18.0); LYMPHOCYTES # (AUTO) 3.1 K/uL (2.0-11.5); MEAN CORPUSCULAR HEMOGLOBIN 27 pg (27-31); MEAN CORPUSCULAR HGB CONC 34 g/dL (33-37); MEAN CORPUSCULAR VOLUME 80.8 fL (80-94); MONOCYTES # (AUTO) 1.2 K/uL (0.8-1.0); MONOCYTES % (AUTO) 12.2 % (1.7-9.3); NEUTROPHILS # (AUTO) 4.7 K/uL (1.8-7.7); NEUTROPHILS % (AUTO) 47.5 % (42.2-75.2); PLATELET COUNT (AUTO) 161 K/uL (140-450); RED BLOOD CELL COUNT(AUTO) 4.95 MIL/uL (4.20-6.10); RED CELL DISTRIBUTION WIDTH 16.2 % (11.6-13.7); WHITE BLOOD COUNT (AUTO) 9.8 K/uL (4.8-10.8)
[2022-11-28] MEDS: PANTOPRAZOLE 40 MG INJ VIAL IVP SCH ×2 (08:45→21:04)
[2022-11-28] MEDS: levETIRAcetam 100 MG/ML ORASYR GT SCH ×2 (09:47→21:04)
[2022-11-28] MEDS: ATORVASTATIN 20 MG TAB PO SCH (09:48)
[2022-11-28] MEDS: risperiDONE 1 MG TAB GT SCH ×2 (09:48→21:05)
[2022-11-28] MEDS: METOPROLOL 50 MG TAB GT SCH ×2 (09:49→21:06)
[2022-11-28] MEDS ORDERED: FOAM DRESSING TP PRN (15:00)
[2022-11-29] VITALS (12 sets, daily range): BP systolic 119–135; BP diastolic 63–75; PULSE 65–110; RESP 20–22; TEMP 98.2–98.8; O2SAT 62–99
[2022-11-29] MEDS: DEXT 5% / NACL 0.9% 1,000 ML IV SCH ×2 (02:21→11:50)
[2022-11-29] MEDS ORDERED: MEROPENEM 1,000 MG VIAL IV ONE (05:16)
[2022-11-29] MEDS: MEROPENEM 1,000 MG in NACL 0.9% 50 ML IV SCH ×2 (05:21→14:38)
[2022-11-29 05:54] LABS: BASOPHILS # (AUTO) 0.1 K/uL (0.00-0.22); BASOPHILS % (AUTO) 0.5 % (0.0-2.0); EOSINOPHILS # (AUTO) 0.9 K/uL (0-0.4); HEMATOCRIT 41.4 % (36-52); HEMOGLOBIN 13.9 g/dL (12.0-18.0); LYMPHOCYTES # (AUTO) 3.2 K/uL (2.0-11.5); LYMPHOCYTES % (AUTO) 30.8 % (20.5-51.1); MEAN CORPUSCULAR HEMOGLOBIN 27 pg (27-31); MEAN CORPUSCULAR HGB CONC 34 g/dL (33-37); MEAN CORPUSCULAR VOLUME 80.7 fL (80-94); MONOCYTES # (AUTO) 1.2 K/uL (0.8-1.0); MONOCYTES % (AUTO) 11.5 % (1.7-9.3); NEUTROPHILS # (AUTO) 5.1 K/uL (1.8-7.7); NEUTROPHILS % (AUTO) 48.2 % (42.2-75.2); PLATELET COUNT (AUTO) 172 K/uL (140-450); RED BLOOD CELL COUNT(AUTO) 5.13 MIL/uL (4.20-6.10); RED CELL DISTRIBUTION WIDTH 16.1 % (11.6-13.7); WHITE BLOOD COUNT (AUTO) 10.5 K/uL (4.8-10.8)
[2022-11-29] MEDS ORDERED: SILVER NITRATE APPLICATOR 1 EA SWAB TP SCH (08:35)
[2022-11-29] MEDS: METOPROLOL 50 MG TAB GT SCH (08:46)
[2022-11-29] MEDS: PANTOPRAZOLE 40 MG INJ VIAL IVP SCH (08:47)
[2022-11-29] MEDS: ATORVASTATIN 20 MG TAB PO SCH (08:48)
[2022-11-29 08:53] LABS: ANION GAP 13.2 (8-16); CALCIUM 8.3 mg/dL (8.5-10.1); CARBON DIOXIDE 23.2 mmol/L (21-32); CREATININE 0.8 mg/dL (0.6-1.3); POTASSIUM 3.4 mmol/L (3.5-5.1)
[2022-11-29] MEDS: risperiDONE 1 MG TAB GT SCH (08:54)
[2022-11-29] MEDS: levETIRAcetam 100 MG/ML ORASYR GT SCH (08:57)
[2022-11-29] MEDS ORDERED: ENOXAPARIN 40 MG/0.4 ML SYR SUBQ SCH (09:00)
[2022-11-29] MEDS ORDERED: ERTA1VIA2 IJ (10:34)
[2022-11-29] MEDS ORDERED: FOAM DRESSING TP SCH (13:00)
== END 2022-11-29 19:30 | DRG 720 ==
LOC: MED 02:15 → MTU 05:29 → MMU 07:36
PROVIDERS: ADMIT Student in an Organized Health Care Education/Training Program; ATTEND Student in an Organized Health Care Education/Training Program
PROC: 5A1955Z Respiratory Ventilation, Greater than 96 Consecutive Hours (ICD-10-PCS; principal; 2022-11-25)
PROC: 02HV33Z Insertion of Infusion Device into Superior Vena Cava, Percutaneous Approach (ICD-10-PCS; 2022-11-29)
PROC: B548ZZA Ultrasonography of Superior Vena Cava, Guidance (ICD-10-PCS; 2022-11-29)
DX: A41.9 Sepsis, unspecified organism (principal); J96.20 Acute and chronic respiratory failure, unspecified whether with hypoxia or hypercapnia; J69.0 Pneumonitis due to inhalation of food and vomit; G82.50 Quadriplegia, unspecified; E43 Unspecified severe protein-calorie malnutrition; J15.8 Pneumonia due to other specified bacteria; K92.2 Gastrointestinal hemorrhage, unspecified; Z93.0 Tracheostomy status; Z16.12 Extended spectrum beta lactamase (ESBL) resistance; N39.0 Urinary tract infection, site not specified; G40.909 Epilepsy, unspecified, not intractable, without status epilepticus; I10 Essential (primary) hypertension; R13.10 Dysphagia, unspecified; Z88.2 Allergy status to sulfonamides; Z98.2 Presence of cerebrospinal fluid drainage device; Z68.30 Body mass index [BMI] 30.0-30.9, adult; Z79.899 Other long term (current) drug therapy; K94.23 Gastrostomy malfunction
CPT/HCPCS: 36415; 71045; 74018; 80048; 80053; 81001; 83605; 83690; 83735; 84100; 84484; 85025; 87040; 87070; 87081; 87086; 87205; 93005; 94003; 96361; 96365; 96367; 99285; C9113; J1650; J2185; J2543; J7060; Q0092

== ENCOUNTER 2023-05-08 12:32 | Inpatient (IN) | payer MEDICAID, OTHER ==
[~2023-05-08] VITALS: Ht 129 cm; Wt 58.1 kg
[~2023-05-08 12:32] MED LIST changes: +ERTA1VIA2 IJ
[2023-05-08 12:34] VITALS: BP 103/61; PULSE 58; RESP 20; TEMP 99
[2023-05-08 13:08] VITALS: BP 109/59; PULSE 74; O2SAT 98
[2023-05-08 13:30] LABS: BASOPHILS # (AUTO) 0.2 K/uL (0.00-0.22); BASOPHILS % (AUTO) 1.2 % (0.0-2.0); EOSINOPHILS # (AUTO) 0.7 K/uL (0-0.4); EOSINOPHILS % (AUTO) 5.1 % (0.0-4.0); HEMATOCRIT 40.7 % (36-52); HEMOGLOBIN 13.5 g/dL (12.0-18.0); LYMPHOCYTES # (AUTO) 3.8 K/uL (2.0-11.5); LYMPHOCYTES % (AUTO) 28.9 % (20.5-51.1); MEAN CORPUSCULAR HEMOGLOBIN 27 pg (27-31); MEAN CORPUSCULAR HGB CONC 33 g/dL (33-37); MEAN CORPUSCULAR VOLUME 79.6 fL (80-94); MONOCYTES # (AUTO) 1.6 K/uL (0.8-1.0); NEUTROPHILS # (AUTO) 6.9 K/uL (1.8-7.7); NEUTROPHILS % (AUTO) 52.8 % (42.2-75.2); PLATELET COUNT (AUTO) 202 K/uL (140-450); RED BLOOD CELL COUNT(AUTO) 5.11 MIL/uL (4.20-6.10); RED CELL DISTRIBUTION WIDTH 16.4 % (11.6-13.7)
[2023-05-08] MEDS: NACL 0.9% 500 ML IV SCH (13:41)
[2023-05-08 13:56] LABS: INR 0.99 (0.8-1.2); PARTIAL THROMBOPLASTIN TIME 24.1 secs (22-35.6); PROTHROMBIN TIME 10.4 secs (10.8-13.4)
[2023-05-08 14:07] LABS: ANION GAP 6.5 (8-16); CALCIUM 8.5 mg/dL (8.5-10.1); CARBON DIOXIDE 30.4 mmol/L (21-32); CREATININE 0.7 mg/dL (0.6-1.3); POTASSIUM 3.9 mmol/L (3.5-5.1)
[2023-05-08 14:10] LABS: ALBUMIN 2.1 g/dL (3.4-5.0); BILIRUBIN,DIRECT 0.1 mg/dL (0.0-0.3); TOTAL BILIRUBIN 0.2 mg/dL (0.0-1.0); TOTAL PROTEIN, SERUM 8.1 g/dL (6.4-8.2)
[2023-05-08] MEDS ORDERED: cefTRIAXone 1,000 MG VIAL ONE (14:24)
[2023-05-08] MEDS ORDERED: AZITHROMYCIN 500 MG INJ VIAL IV ONE (14:27)
[2023-05-08] MEDS ORDERED: ACETAMINOPHEN 325 MG TAB PO PRN (14:45)
[2023-05-08] MEDS ORDERED: KCL 20 MEQ IN 100 mL PREMIX 200 ML IV PRN (14:45)
[2023-05-08] MEDS ORDERED: HYDROcodone/APAP 5/325 MG 1 TAB TAB PO PRN (14:45)
[2023-05-08] MEDS ORDERED: MAG SULF 2000 MG/WATER PREMIX 50 ML IV PRN (14:45)
[2023-05-08] MEDS ORDERED: MORPHINE SULFATE 2 MG/ML SYR IVP PRN (14:45)
[2023-05-08 14:49] LABS: APPEARANCE,URINE CLEAR (CLEAR); BILIRUBIN,URINE NEGATIVE (NEGATIVE); BLOOD, URINE NEGATIVE (NEGATIVE); COLOR,URINE YELLOW (YELLOW); LEUKOCYTE ESTERASE ,URINE 1+ (NEGATIVE); NITRITE, URINE NEGATIVE (NEGATIVE); PH,URINE 7.5 (5.0-9.0); PROTEIN,URINE TRACE (NEGATIVE); UGLUCOSE NEGATIVE (NEGATIVE); UROBILINOGEN,URINE 0.2 EU/dL (0.2 - 1)
[2023-05-08 15:05] LABS: BACTERIA,URINE FEW /HPF (None Seen); RBC,URINE 0-5 /HPF (0-5); SQUAMOUS EPITHELIAL CELL,UR 0-3 (FEW) /LPF (0-3 (FEW))
[2023-05-08] MEDS: AZITHROMYCIN 1,000 MG in DEXTROSE 5% 500 ML IV ONE (15:28)
[2023-05-08 16:06] VITALS: BP 115/82; PULSE 87; O2SAT 98
[2023-05-08 19:00] VITALS: PULSE 77; RESP 21; O2SAT 97
[2023-05-08 19:03] VITALS: PULSE 68; O2SAT 98
[2023-05-08] MEDS: NACL 0.9% 1,000 ML IV SCH (19:48)
[2023-05-08 20:00] VITALS: PULSE 60
[2023-05-08 20:48] LABS: FLU A ANTIGEN negative (NEGATIVE); FLU B ANTIGEN NEGATIVE (NEGATIVE)
[2023-05-08] MEDS: levETIRAcetam 100 MG/ML ORASYR GT SCH (23:01)
[2023-05-08] MEDS: MEROPENEM 1,000 MG in NACL 0.9% 50 ML IV SCH (23:01)
[2023-05-08] MEDS: METOPROLOL 50 MG TAB PO SCH (23:02)
[2023-05-08] MEDS: risperiDONE 1 MG TAB PO SCH (23:03)
[2023-05-08] MEDS: carBAMazepine 200 MG TAB PO SCH (23:04)
[2023-05-09] VITALS (16 sets, daily range): BP systolic 120–148; BP diastolic 51–86; PULSE 62–116; RESP 19–25; TEMP 97.5–98.7; O2SAT 92–99
[2023-05-09 06:51] LABS: BASOPHILS # (AUTO) 0.1 K/uL (0.00-0.22); BASOPHILS % (AUTO) 0.7 % (0.0-2.0); EOSINOPHILS # (AUTO) 0.9 K/uL (0-0.4); EOSINOPHILS % (AUTO) 8.4 % (0.0-4.0); HEMATOCRIT 38.3 % (36-52); LYMPHOCYTES # (AUTO) 3.3 K/uL (2.0-11.5); MEAN CORPUSCULAR HEMOGLOBIN 27 pg (27-31); MEAN CORPUSCULAR HGB CONC 34 g/dL (33-37); MEAN CORPUSCULAR VOLUME 79.6 fL (80-94); MONOCYTES # (AUTO) 1.3 K/uL (0.8-1.0); MONOCYTES % (AUTO) 12.4 % (1.7-9.3); NEUTROPHILS % (AUTO) 47.5 % (42.2-75.2); PLATELET COUNT (AUTO) 163 K/uL (140-450); RED BLOOD CELL COUNT(AUTO) 4.82 MIL/uL (4.20-6.10); RED CELL DISTRIBUTION WIDTH 16.4 % (11.6-13.7); WHITE BLOOD COUNT (AUTO) 10.6 K/uL (4.8-10.8)
[2023-05-09 07:15] LABS: ALBUMIN 1.9 g/dL (3.4-5.0); ANION GAP 11.6 (8-16); CALCIUM 8.1 mg/dL (8.5-10.1); CARBON DIOXIDE 23.8 mmol/L (21-32); CREATININE 0.6 mg/dL (0.6-1.3); MAGNESIUM 1.8 mg/dL (1.8-2.4); POTASSIUM 3.4 mmol/L (3.5-5.1); TOTAL BILIRUBIN 0.2 mg/dL (0.0-1.0); TOTAL PROTEIN, SERUM 7.6 g/dL (6.4-8.2)
[2023-05-09] MEDS: POTASSIUM CHLORIDE 10 MEQ TABER PO PRN (09:45)
[2023-05-09] MEDS: ATORVASTATIN 20 MG TAB PO SCH (09:47)
[2023-05-09] MEDS: PANTOPRAZOLE 40 MG INJ VIAL IVP SCH (09:48)
[2023-05-09] MEDS: POTASSIUM CHLORIDE 20% 40 MEQ/15 ML UDC GT PRN (18:16)
[2023-05-09] MEDS: AZITHROMYCIN 500 MG in DEXTROSE 5% 250 ML IV SCH (18:16)
[2023-05-10] VITALS (15 sets, daily range): BP systolic 132–148; BP diastolic 68–85; PULSE 84–130; RESP 18–23; TEMP 97.3–98.6; O2SAT 90–98
[2023-05-10 07:11] LABS: BASOPHILS # (AUTO) 0.1 K/uL (0.00-0.22); BASOPHILS % (AUTO) 0.7 % (0.0-2.0); EOSINOPHILS % (AUTO) 7.4 % (0.0-4.0); HEMATOCRIT 40.5 % (36-52); HEMOGLOBIN 13.5 g/dL (12.0-18.0); LYMPHOCYTES # (AUTO) 2.7 K/uL (2.0-11.5); LYMPHOCYTES % (AUTO) 20.5 % (20.5-51.1); MEAN CORPUSCULAR HEMOGLOBIN 26 pg (27-31); MEAN CORPUSCULAR HGB CONC 34 g/dL (33-37); MEAN CORPUSCULAR VOLUME 78.9 fL (80-94); MONOCYTES # (AUTO) 1.6 K/uL (0.8-1.0); NEUTROPHILS # (AUTO) 7.7 K/uL (1.8-7.7); NEUTROPHILS % (AUTO) 59.4 % (42.2-75.2); PLATELET COUNT (AUTO) 176 K/uL (140-450); RED BLOOD CELL COUNT(AUTO) 5.13 MIL/uL (4.20-6.10)
[2023-05-10 07:23] LABS: ALBUMIN 2.1 g/dL (3.4-5.0); ANION GAP 13.5 (8-16); CALCIUM 8.6 mg/dL (8.5-10.1); CARBON DIOXIDE 20.5 mmol/L (21-32); CREATININE 0.6 mg/dL (0.6-1.3); MAGNESIUM 1.7 mg/dL (1.8-2.4); TOTAL BILIRUBIN 0.4 mg/dL (0.0-1.0); TOTAL PROTEIN, SERUM 8.3 g/dL (6.4-8.2)
[2023-05-10] MEDS ORDERED: ALGINATE ROPE MC PRN (13:00)
[2023-05-10] MEDS: FOAM DRESSING TP SCH (13:00)
[2023-05-10] MEDS: ALGINATE ROPE MC SCH (13:00)
[2023-05-10] MEDS ORDERED: FOAM DRESSING TP PRN (13:00)
[2023-05-10] MEDS ORDERED: VANCOMYCIN PER PHARMACY MC PRN (16:10)
[2023-05-10] MEDS: VANCOMYCIN 750 MG in DEXTROSE 5% 250 ML IV SCH (18:03)
[2023-05-11] VITALS (14 sets, daily range): BP systolic 104–136; BP diastolic 59–80; PULSE 72–124; RESP 20–23; TEMP 97.5–98.8; O2SAT 92–100
[2023-05-11 07:05] LABS: BASOPHILS % (AUTO) 0.2 % (0.0-2.0); EOSINOPHILS # (AUTO) 0.9 K/uL (0-0.4); EOSINOPHILS % (AUTO) 6.3 % (0.0-4.0); HEMATOCRIT 43.2 % (36-52); HEMOGLOBIN 14.5 g/dL (12.0-18.0); LYMPHOCYTES # (AUTO) 2.6 K/uL (2.0-11.5); LYMPHOCYTES % (AUTO) 17.5 % (20.5-51.1); MEAN CORPUSCULAR HEMOGLOBIN 26 pg (27-31); MEAN CORPUSCULAR HGB CONC 34 g/dL (33-37); MEAN CORPUSCULAR VOLUME 78.4 fL (80-94); MONOCYTES # (AUTO) 1.2 K/uL (0.8-1.0); MONOCYTES % (AUTO) 8.4 % (1.7-9.3); NEUTROPHILS # (AUTO) 10.1 K/uL (1.8-7.7); NEUTROPHILS % (AUTO) 67.6 % (42.2-75.2); PLATELET COUNT (AUTO) 194 K/uL (140-450); RED BLOOD CELL COUNT(AUTO) 5.51 MIL/uL (4.20-6.10); RED CELL DISTRIBUTION WIDTH 16.2 % (11.6-13.7); WHITE BLOOD COUNT (AUTO) 14.9 K/uL (4.8-10.8)
[2023-05-11 07:54] LABS: ALBUMIN 2.3 g/dL (3.4-5.0); ANION GAP 17.6 (8-16); CALCIUM 8.6 mg/dL (8.5-10.1); CARBON DIOXIDE 19.7 mmol/L (21-32); CREATININE 0.7 mg/dL (0.6-1.3); MAGNESIUM 1.7 mg/dL (1.8-2.4); POTASSIUM 3.3 mmol/L (3.5-5.1); TOTAL BILIRUBIN 0.6 mg/dL (0.0-1.0)
[2023-05-11] MEDS: SCOPOLAMINE 1.5 MG/72 HR PATCH TD SCH (10:37)
[2023-05-11] MEDS: MAGNESIUM OXIDE 400 MG TAB PO PRN (11:39)
[2023-05-12] VITALS (8 sets, daily range): BP systolic 101–138; BP diastolic 57–76; PULSE 82–111; RESP 20; TEMP 97.3–98.8; O2SAT 94–99
[2023-05-12 04:04] LABS: BASOPHILS # (AUTO) 0.1 K/uL (0.00-0.22); BASOPHILS % (AUTO) 0.7 % (0.0-2.0); EOSINOPHILS # (AUTO) 1.2 K/uL (0-0.4); EOSINOPHILS % (AUTO) 9.7 % (0.0-4.0); HEMATOCRIT 40.2 % (36-52); HEMOGLOBIN 13.5 g/dL (12.0-18.0); LYMPHOCYTES # (AUTO) 3.3 K/uL (2.0-11.5); LYMPHOCYTES % (AUTO) 27.1 % (20.5-51.1); MEAN CORPUSCULAR HEMOGLOBIN 26 pg (27-31); MEAN CORPUSCULAR HGB CONC 34 g/dL (33-37); MEAN CORPUSCULAR VOLUME 78.4 fL (80-94); MONOCYTES # (AUTO) 1.2 K/uL (0.8-1.0); MONOCYTES % (AUTO) 9.6 % (1.7-9.3); NEUTROPHILS # (AUTO) 6.5 K/uL (1.8-7.7); NEUTROPHILS % (AUTO) 52.9 % (42.2-75.2); PLATELET COUNT (AUTO) 168 K/uL (140-450); RED BLOOD CELL COUNT(AUTO) 5.13 MIL/uL (4.20-6.10); RED CELL DISTRIBUTION WIDTH 16.1 % (11.6-13.7); WHITE BLOOD COUNT (AUTO) 12.3 K/uL (4.8-10.8)
[2023-05-12 04:42] LABS: ANION GAP 13.8 (8-16); CALCIUM 8.3 mg/dL (8.5-10.1); POTASSIUM 3.8 mmol/L (3.5-5.1)
[2023-05-12 04:43] LABS: CREATININE 0.5 mg/dL (0.6-1.3); TOTAL BILIRUBIN 0.4 mg/dL (0.0-1.0); TOTAL PROTEIN, SERUM 8.2 g/dL (6.4-8.2)
[2023-05-12 04:44] LABS: MAGNESIUM 1.9 mg/dL (1.8-2.4)
[2023-05-12] MEDS ORDERED: Vancomycin Per Pharmacy MC (10:23)
[2023-05-12] MEDS ORDERED: VANCOMYCIN 1,000 MG in DEXTROSE 5% 250 ML IV SCH (17:00)
== END 2023-05-12 15:52 | DRG 133 ==
LOC: MED 12:32 → MTU 14:50
PROVIDERS: ADMIT Internal Medicine; ATTEND Internal Medicine
PROC: 5A1945Z Respiratory Ventilation, 24-96 Consecutive Hours (ICD-10-PCS; principal; 2023-05-08)
PROC: 0BH17EZ Insertion of Endotracheal Airway into Trachea, Via Natural or Artificial Opening (ICD-10-PCS; 2023-05-08)
DX: J96.21 Acute and chronic respiratory failure with hypoxia (principal); J95.851 Ventilator associated pneumonia; K92.0 Hematemesis; E43 Unspecified severe protein-calorie malnutrition; R65.10 Systemic inflammatory response syndrome (SIRS) of non-infectious origin without acute organ dysfunction; K94.23 Gastrostomy malfunction; G80.8 Other cerebral palsy; Z68.34 Body mass index [BMI] 34.0-34.9, adult; Z20.822 Contact with and (suspected) exposure to COVID-19; G40.909 Epilepsy, unspecified, not intractable, without status epilepticus; R13.10 Dysphagia, unspecified; Z88.2 Allergy status to sulfonamides
CPT/HCPCS: 36415; 71045; 80048; 80053; 80076; 80156; 80173; 80202; 81001; 83605; 83690; 83735; 83880; 85025; 85610; 85730; 86886; 86900; 86901; 87040; 87081; 87086; 87186; 93005; 94003; 96361; 96365; 96366; 96367; 99285; C9113; J0456; J0696; J2185; J3370; J7060

== ENCOUNTER 2023-09-11 04:35 | Inpatient (IN) | payer OTHER ==
[~2023-09-11] VITALS: Ht 121.9 cm; Wt 48.6 kg
[2023-09-11] VITALS (12 sets, daily range): BP systolic 108–154; BP diastolic 61–78; PULSE 114–140; RESP 18–22; TEMP 98.4–100.6; O2SAT 94–100
[~2023-09-11 04:35] MED LIST changes: +Vancomycin Per Pharmacy MC
[2023-09-11] MEDS: LORazepam 2 MG/ML VIAL IVP ONE (05:43)
[2023-09-11] MEDS: ACETAMINOPHEN 650 MG SUPP RC ONE (05:53)
[2023-09-11] MEDS: NACL 0.9% 2,000 ML IV ONE (05:54)
[2023-09-11 05:55] LABS: BLOOD GAS BASE EXCESS -0.4 mmol/L (-2.0-2.0); BLOOD GAS HCO3 21.5 mmol/L (22-26); BLOOD GAS PCO2 28.8 mmHg (35-45); BLOOD GAS PO2 62.6 mmHg (75-100)
[2023-09-11 05:57] LABS: BLOOD GAS O2 SAT% 94.4 % (92.0-98.5)
[2023-09-11 06:12] LABS: APPEARANCE,URINE CLEAR (CLEAR); BILIRUBIN,URINE NEGATIVE (NEGATIVE); BLOOD, URINE NEGATIVE (NEGATIVE); COLOR,URINE YELLOW (YELLOW); LEUKOCYTE ESTERASE ,URINE NEGATIVE (NEGATIVE); NITRITE, URINE NEGATIVE (NEGATIVE); PH,URINE 7.5 (5.0-9.0); PROTEIN,URINE 1+ (NEGATIVE); UGLUCOSE TRACE (NEGATIVE)
[2023-09-11 06:28] LABS: BACTERIA,URINE OCCASSIONAL /HPF (None Seen); RBC,URINE 0-5 /HPF (0-5); SQUAMOUS EPITHELIAL CELL,UR 0-3 (FEW) /LPF (0-3 (FEW)); WBC,URINE 0-5 /HPF (0-5)
[2023-09-11 06:55] LABS: ANION GAP 13.3 (8-16); CALCIUM 8.5 mg/dL (8.5-10.1); CARBON DIOXIDE 28.4 mmol/L (21-32); CREATININE 0.8 mg/dL (0.6-1.3); POTASSIUM 3.7 mmol/L (3.5-5.1)
[2023-09-11 06:56] LABS: INR 1.02 (0.8-1.2); PROTHROMBIN TIME 10.7 secs (10.8-13.4)
[2023-09-11] MEDS ORDERED: PIPERACILLIN/TAZOBACTAM 3.375 GM VIAL IV ONE (06:58)
[2023-09-11] MEDS ORDERED: VANCOMYCIN 1,000 MG VIAL ONE (06:58)
[2023-09-11 07:02] LABS: LACTIC ACID 1.4 mmol/L (0.4-2.0)
[2023-09-11 07:21] LABS: BASOPHILS # (AUTO) 0.1 K/uL (0.00-0.22); EOSINOPHILS # (AUTO) 0.1 K/uL (0-0.4); LYMPHOCYTES # (AUTO) 1.3 K/uL (2.0-11.5); MEAN CORPUSCULAR HEMOGLOBIN 26 pg (27-31); RED CELL DISTRIBUTION WIDTH 15.9 % (11.6-13.7)
[2023-09-11 07:22] LABS: HEMATOCRIT 44.8 % (36-52); HEMOGLOBIN 14.9 g/dL (12.0-18.0); LYMPHOCYTES % (AUTO) 5.9 % (20.5-51.1); MEAN CORPUSCULAR HGB CONC 33 g/dL (33-37); MEAN CORPUSCULAR VOLUME 77.8 fL (80-94); NEUTROPHILS % (AUTO) 83.6 % (42.2-75.2); PLATELET COUNT (AUTO) 226 K/uL (140-450); RED BLOOD CELL COUNT(AUTO) 5.76 MIL/uL (4.20-6.10); WHITE BLOOD COUNT (AUTO) 21.8 K/uL (4.8-10.8)
[2023-09-11 07:23] LABS: FLU A ANTIGEN negative (NEGATIVE); FLU B ANTIGEN negative (NEGATIVE)
[2023-09-11 07:23] LABS: BASOPHILS % (AUTO) 0.3 % (0.0-2.0); EOSINOPHILS % (AUTO) 0.2 % (0.0-4.0); MONOCYTES # (AUTO) 2.2 K/uL (0.8-1.0); NEUTROPHILS # (AUTO) 18.2 K/uL (1.8-7.7)
[2023-09-11] MEDS: VANCOMYCIN 1,000 MG in DEXTROSE 5% 250 ML IV ONE (07:32)
[2023-09-11] MEDS: PIPERACILLIN/TAZOBACTAM 3.375 GM in DEXTROSE 5% 50 ML IV ONE (07:33)
[2023-09-11] MEDS ORDERED: MAGNESIUM OXIDE 400 MG TAB PO PRN (08:55)
[2023-09-11] MEDS ORDERED: LORazepam 1 MG TAB PO PRN (08:55)
[2023-09-11] MEDS ORDERED: ACETAMINOPHEN 325 MG TAB PO PRN (08:55)
[2023-09-11] MEDS ORDERED: HYDROcodone/APAP 5/325 MG 1 TAB TAB PO PRN (08:55)
[2023-09-11] MEDS ORDERED: ONDANSETRON 4 MG/2 ML VIAL IVP PRN (08:55)
[2023-09-11] MEDS ORDERED: METOCLOPRAMIDE 10 MG/2 ML INJ VIAL IVP PRN (08:55)
[2023-09-11] MEDS ORDERED: HYDROmorphone 1 MG/ML AMP IVP PRN (08:55)
[2023-09-11] MEDS ORDERED: MAG SULF 2000 MG/WATER PREMIX 50 ML IV PRN (08:55)
[2023-09-11] MEDS: LACTATED RINGERS 1,000 ML IV SCH (08:55)
[2023-09-11] MEDS: DOCUSATE SODIUM 100 MG GELCAP PO SCH (09:00)
[2023-09-11] MEDS: NACL 0.9% 1,000 ML IV ONE (11:26)
[2023-09-11] MEDS ORDERED: METO5SOL GT (11:39)
[2023-09-11] MEDS: PIPERACILLIN/TAZOBACTAM 3.375 GM in DEXTROSE 5% 50 ML IV SCH (11:48)
[2023-09-11] MEDS: METOCLOPRAMIDE 10 MG/2 ML INJ VIAL IVP SCH (11:49)
[2023-09-11] MEDS: FUROSEMIDE 20 MG/2 ML VIAL IVP ONE (22:51)
[2023-09-11] MEDS: PIPERACILLIN/TAZOBACTAM 3.375 GM VIAL IV ONE (23:02)
[2023-09-12] VITALS (15 sets, daily range): BP systolic 107–139; BP diastolic 61–100; PULSE 83–135; RESP 18–22; TEMP 98–99.4; O2SAT 93–99
[2023-09-12 05:24] LABS: BASOPHILS # (AUTO) 0.1 K/uL (0.00-0.22); BASOPHILS % (AUTO) 0.3 % (0.0-2.0); EOSINOPHILS # (AUTO) 0.2 K/uL (0-0.4); EOSINOPHILS % (AUTO) 1.2 % (0.0-4.0); HEMATOCRIT 39.8 % (36-52); LYMPHOCYTES # (AUTO) 2.4 K/uL (2.0-11.5); LYMPHOCYTES % (AUTO) 15.9 % (20.5-51.1); MEAN CORPUSCULAR HEMOGLOBIN 26 pg (27-31); MEAN CORPUSCULAR HGB CONC 33 g/dL (33-37); MEAN CORPUSCULAR VOLUME 78.4 fL (80-94); MONOCYTES % (AUTO) 12.8 % (1.7-9.3); NEUTROPHILS # (AUTO) 10.7 K/uL (1.8-7.7); NEUTROPHILS % (AUTO) 69.8 % (42.2-75.2); PLATELET COUNT (AUTO) 195 K/uL (140-450); RED BLOOD CELL COUNT(AUTO) 5.08 MIL/uL (4.20-6.10); RED CELL DISTRIBUTION WIDTH 15.6 % (11.6-13.7); WHITE BLOOD COUNT (AUTO) 15.3 K/uL (4.8-10.8)
[2023-09-12] MEDS: PIPERACILLIN/TAZOBACTAM 3.375 GM VIAL IV ONE (05:36)
[2023-09-12 05:43] LABS: ALBUMIN 2.1 g/dL (3.4-5.0); CALCIUM 8.7 mg/dL (8.5-10.1); CARBON DIOXIDE 26.2 mmol/L (21-32); CREATININE 0.6 mg/dL (0.6-1.3); PHOSPHORUS 2.2 mg/dL (2.5-4.9); POTASSIUM 3.2 mmol/L (3.5-5.1); TOTAL BILIRUBIN 0.6 mg/dL (0.0-1.0); TOTAL PROTEIN, SERUM 7.7 g/dL (6.4-8.2)
[2023-09-12] MEDS: Z-GUARD PASTE TP ONE (09:28)
[2023-09-12] MEDS: POTASSIUM CHLORIDE 10 MEQ TABER PO PRN (09:33)
[2023-09-12] MEDS: MEDS-TO-BEDS MC SCH (09:34)
[2023-09-12] MEDS: CRUSHER, PILL MC ONE (09:52)
[2023-09-12] MEDS ORDERED: VANCOMYCIN PER PHARMACY MC PRN (17:20)
[2023-09-12] MEDS: METOPROLOL 25 MG TAB PO SCH (21:00)
[2023-09-12] MEDS: VANCOMYCIN 500 MG in DEXTROSE 5% 100 ML IV SCH (21:22)
[2023-09-12] MEDS: KCL 20 MEQ IN 100 mL PREMIX 200 ML IV ONE (22:18)
[2023-09-12] MEDS: METOPROLOL 5 MG/5 ML VIAL IV ONE (22:43)
[2023-09-13] VITALS (16 sets, daily range): BP systolic 117–145; BP diastolic 62–82; PULSE 94–124; RESP 18–20; TEMP 98.1–99; O2SAT 94–99
[2023-09-13 05:35] LABS: BASOPHILS # (AUTO) 0.1 K/uL (0.00-0.22); BASOPHILS % (AUTO) 0.5 % (0.0-2.0); EOSINOPHILS # (AUTO) 0.3 K/uL (0-0.4); EOSINOPHILS % (AUTO) 2.7 % (0.0-4.0); HEMOGLOBIN 12.2 g/dL (12.0-18.0); LYMPHOCYTES # (AUTO) 2.7 K/uL (2.0-11.5); LYMPHOCYTES % (AUTO) 21.3 % (20.5-51.1); MEAN CORPUSCULAR HEMOGLOBIN 26 pg (27-31); MEAN CORPUSCULAR HGB CONC 33 g/dL (33-37); MEAN CORPUSCULAR VOLUME 78.4 fL (80-94); MONOCYTES # (AUTO) 1.8 K/uL (0.8-1.0); MONOCYTES % (AUTO) 14.7 % (1.7-9.3); NEUTROPHILS # (AUTO) 7.6 K/uL (1.8-7.7); NEUTROPHILS % (AUTO) 60.8 % (42.2-75.2); PLATELET COUNT (AUTO) 199 K/uL (140-450); RED BLOOD CELL COUNT(AUTO) 4.71 MIL/uL (4.20-6.10); RED CELL DISTRIBUTION WIDTH 15.7 % (11.6-13.7); WHITE BLOOD COUNT (AUTO) 12.5 K/uL (4.8-10.8)
[2023-09-13 06:40] LABS: ALBUMIN 2.1 g/dL (3.4-5.0); ANION GAP 12.6 (8-16); CALCIUM 8.5 mg/dL (8.5-10.1); CARBON DIOXIDE 25.5 mmol/L (21-32); CREATININE 0.6 mg/dL (0.6-1.3); MAGNESIUM 2.2 mg/dL (1.8-2.4); PHOSPHORUS 2.6 mg/dL (2.5-4.9); POTASSIUM 3.1 mmol/L (3.5-5.1); TOTAL BILIRUBIN 0.4 mg/dL (0.0-1.0); TOTAL PROTEIN, SERUM 7.5 g/dL (6.4-8.2)
[2023-09-13] MEDS: DOCUSATE 100 MG/10 ML UDC GT SCH (09:00)
[2023-09-13] MEDS ORDERED: FOAM DRESSING TP PRN (13:15)
[2023-09-13] MEDS ORDERED: THERAHONEY GEL 42.5 GM TP PRN (13:15)
[2023-09-13] MEDS ORDERED: Z-GUARD PASTE TP PRN (13:15)
[2023-09-13] MEDS: POTASSIUM CHLORIDE 40 MEQ, LIDOCAINE 1% 25 MG in NACL 0.9% 250 ML IV SCH (14:16)
[2023-09-13] MEDS: THERAHONEY GEL 42.5 GM TP SCH (14:17)
[2023-09-14] VITALS (14 sets, daily range): BP systolic 110–148; BP diastolic 62–87; PULSE 75–109; RESP 18–20; TEMP 96.9–98.5; O2SAT 95–99
[2023-09-14] MEDS: Z-GUARD PASTE TP SCH (01:00)
[2023-09-14 07:20] LABS: BASOPHILS # (AUTO) 0.1 K/uL (0.00-0.22); BASOPHILS % (AUTO) 0.5 % (0.0-2.0); EOSINOPHILS # (AUTO) 0.8 K/uL (0-0.4); EOSINOPHILS % (AUTO) 5.8 % (0.0-4.0); HEMATOCRIT 37.3 % (36-52); HEMOGLOBIN 12.2 g/dL (12.0-18.0); LYMPHOCYTES # (AUTO) 2.4 K/uL (2.0-11.5); LYMPHOCYTES % (AUTO) 16.3 % (20.5-51.1); MEAN CORPUSCULAR HEMOGLOBIN 26 pg (27-31); MEAN CORPUSCULAR HGB CONC 33 g/dL (33-37); MEAN CORPUSCULAR VOLUME 77.9 fL (80-94); MONOCYTES # (AUTO) 1.9 K/uL (0.8-1.0); MONOCYTES % (AUTO) 13.4 % (1.7-9.3); NEUTROPHILS # (AUTO) 9.2 K/uL (1.8-7.7); PLATELET COUNT (AUTO) 191 K/uL (140-450); RED BLOOD CELL COUNT(AUTO) 4.79 MIL/uL (4.20-6.10); RED CELL DISTRIBUTION WIDTH 15.7 % (11.6-13.7); WHITE BLOOD COUNT (AUTO) 14.4 K/uL (4.8-10.8)
[2023-09-14 07:45] LABS: ANION GAP 13.2 (8-16); CALCIUM 8.6 mg/dL (8.5-10.1); CARBON DIOXIDE 24.7 mmol/L (21-32); CREATININE 0.6 mg/dL (0.6-1.3); MAGNESIUM 2.1 mg/dL (1.8-2.4); PHOSPHORUS 2.8 mg/dL (2.5-4.9); POTASSIUM 3.9 mmol/L (3.5-5.1); TOTAL BILIRUBIN 0.5 mg/dL (0.0-1.0); TOTAL PROTEIN, SERUM 7.7 g/dL (6.4-8.2)
[2023-09-14] MEDS: VANCOMYCIN 750 MG in DEXTROSE 5% 250 ML IV SCH (09:59)
[2023-09-14] MEDS: METOCLOPRAMIDE 10 MG/2 ML INJ VIAL IVP SCH (13:00)
[2023-09-14] MEDS: FOAM DRESSING TP SCH (13:00)
[2023-09-15] VITALS (16 sets, daily range): BP systolic 119–143; BP diastolic 50–90; PULSE 70–127; RESP 18–22; TEMP 97.1–98.7; O2SAT 94–99
[2023-09-15 05:38] LABS: BASOPHILS # (AUTO) 0.2 K/uL (0.00-0.22); BASOPHILS % (AUTO) 0.8 % (0.0-2.0); EOSINOPHILS # (AUTO) 1.3 K/uL (0-0.4); EOSINOPHILS % (AUTO) 5.9 % (0.0-4.0); HEMATOCRIT 41.9 % (36-52); HEMOGLOBIN 13.9 g/dL (12.0-18.0); LYMPHOCYTES # (AUTO) 3.3 K/uL (2.0-11.5); LYMPHOCYTES % (AUTO) 15.3 % (20.5-51.1); MEAN CORPUSCULAR HEMOGLOBIN 26 pg (27-31); MEAN CORPUSCULAR HGB CONC 33 g/dL (33-37); MONOCYTES # (AUTO) 2.2 K/uL (0.8-1.0); MONOCYTES % (AUTO) 10.3 % (1.7-9.3); NEUTROPHILS # (AUTO) 14.7 K/uL (1.8-7.7); NEUTROPHILS % (AUTO) 67.7 % (42.2-75.2); PLATELET COUNT (AUTO) 281 K/uL (140-450); RED BLOOD CELL COUNT(AUTO) 5.36 MIL/uL (4.20-6.10); RED CELL DISTRIBUTION WIDTH 15.7 % (11.6-13.7); WHITE BLOOD COUNT (AUTO) 21.7 K/uL (4.8-10.8)
[2023-09-15 06:25] LABS: ALBUMIN 2.4 g/dL (3.4-5.0); ANION GAP 20.2 (8-16); CALCIUM 9.2 mg/dL (8.5-10.1); CREATININE 0.9 mg/dL (0.6-1.3); MAGNESIUM 2.1 mg/dL (1.8-2.4); PHOSPHORUS 3.9 mg/dL (2.5-4.9); POTASSIUM 3.2 mmol/L (3.5-5.1); TOTAL BILIRUBIN 0.6 mg/dL (0.0-1.0); TOTAL PROTEIN, SERUM 8.8 g/dL (6.4-8.2)
[2023-09-15] MEDS: POTASSIUM CHLORIDE 20% 40 MEQ/15 ML UDC GT PRN (08:42)
[2023-09-15] MEDS: cefTAZidime 2,000 MG in DEXTROSE 5% 100 ML IV SCH (13:34)
[2023-09-15] MEDS ORDERED: DEXTROSE 50% 50 ML SYR IVP PRN (16:50)
[2023-09-15] MEDS: BLOOD GLUCOSE MONITORING 1 DEV DEV FS SCH (18:52)
[2023-09-16] VITALS (16 sets, daily range): BP systolic 130–136; BP diastolic 70–88; PULSE 87–123; RESP 18–21; TEMP 97.9–98.6; O2SAT 93–100
[2023-09-16 06:19] LABS: BASOPHILS # (AUTO) 0.1 K/uL (0.00-0.22); BASOPHILS % (AUTO) 0.5 % (0.0-2.0); EOSINOPHILS # (AUTO) 0.6 K/uL (0-0.4); EOSINOPHILS % (AUTO) 4.4 % (0.0-4.0); HEMATOCRIT 37.3 % (36-52); HEMOGLOBIN 12.8 g/dL (12.0-18.0); LYMPHOCYTES # (AUTO) 2.7 K/uL (2.0-11.5); LYMPHOCYTES % (AUTO) 18.7 % (20.5-51.1); MEAN CORPUSCULAR HEMOGLOBIN 27 pg (27-31); MEAN CORPUSCULAR HGB CONC 34 g/dL (33-37); MEAN CORPUSCULAR VOLUME 77.2 fL (80-94); MONOCYTES # (AUTO) 1.9 K/uL (0.8-1.0); MONOCYTES % (AUTO) 12.7 % (1.7-9.3); NEUTROPHILS # (AUTO) 9.3 K/uL (1.8-7.7); NEUTROPHILS % (AUTO) 63.7 % (42.2-75.2); PLATELET COUNT (AUTO) 234 K/uL (140-450); RED BLOOD CELL COUNT(AUTO) 4.83 MIL/uL (4.20-6.10); RED CELL DISTRIBUTION WIDTH 15.6 % (11.6-13.7); WHITE BLOOD COUNT (AUTO) 14.7 K/uL (4.8-10.8)
[2023-09-16 06:30] LABS: ALBUMIN 2.1 g/dL (3.4-5.0); CALCIUM 8.7 mg/dL (8.5-10.1); CREATININE 0.6 mg/dL (0.6-1.3); PHOSPHORUS 2.6 mg/dL (2.5-4.9); TOTAL BILIRUBIN 0.4 mg/dL (0.0-1.0); TOTAL PROTEIN, SERUM 7.8 g/dL (6.4-8.2)
[2023-09-16] MEDS: KCL 20 MEQ IN 100 mL PREMIX 200 ML IV PRN (13:15)
[2023-09-16] MEDS ORDERED: [UNRECOGNIZED DRUG - CODE] IV (14:50)
[2023-09-16] MEDS ORDERED: fentaNYL citrate 0.05 MG/ML VIAL ONE (14:57)
[2023-09-16] MEDS ORDERED: diphenhydrAMINE 50 MG/ML VIAL ONE (14:57)
[2023-09-16] MEDS ORDERED: MIDAZOLAM 5 MG/5 ML VIAL ONE (14:57)
[2023-09-16] MEDS: MIDAZOLAM 5 MG/5 ML VIAL IV ONE (15:59)
[2023-09-16] MEDS ORDERED: LIDOCAINE MPF 1% 5 ML ONE (16:22)
[2023-09-16] MEDS: GLUCAGON 1 MG VIAL ONE (16:30)
[2023-09-16] MEDS ORDERED: LORazepam 2 MG/ML VIAL IVP PRN ×2 (17:55)
[2023-09-16] MEDS: INSULIN LISPRO SLIDING SCALE 100 UNITS/ML VIAL SUBQ PRN (18:41)
[2023-09-16] MEDS: FAMOTIDINE 20 MG TAB GT SCH (20:26)
[2023-09-17] VITALS (11 sets, daily range): BP systolic 121–130; BP diastolic 82–92; PULSE 77–115; RESP 18–20; TEMP 98.9–99; O2SAT 93–100
== END 2023-09-17 16:40 | DRG 720 ==
LOC: MED 04:35 → MIC 09:10 → MMU 12:49
PROVIDERS: ADMIT Hospitalist; ATTEND Hospitalist
PROC: 5A1955Z Respiratory Ventilation, Greater than 96 Consecutive Hours (ICD-10-PCS; principal; 2023-09-11)
PROC: 0D20XUZ Change Feeding Device in Upper Intestinal Tract, External Approach (ICD-10-PCS; 2023-09-14)
DX: A41.9 Sepsis, unspecified organism (principal); J96.21 Acute and chronic respiratory failure with hypoxia; J69.0 Pneumonitis due to inhalation of food and vomit; G82.50 Quadriplegia, unspecified; J15.69 Pneumonia due to other Gram-negative bacteria; E44.0 Moderate protein-calorie malnutrition; K94.23 Gastrostomy malfunction; I10 Essential (primary) hypertension; Z20.822 Contact with and (suspected) exposure to COVID-19; R65.20 Severe sepsis without septic shock; Y95 Nosocomial condition; Z88.2 Allergy status to sulfonamides; Z98.2 Presence of cerebrospinal fluid drainage device; Z79.899 Other long term (current) drug therapy; Z79.51 Long term (current) use of inhaled steroids; Z68.32 Body mass index [BMI] 32.0-32.9, adult; Z93.0 Tracheostomy status
CPT/HCPCS: 36415; 36600; 71045; 80048; 80053; 80202; 81001; 82803; 82948; 83605; 83735; 83880; 84100; 84484; 85025; 85610; 85651; 86140; 87040; 87070; 87081; 87186; 87205; 89220; 93005; 94003; 96374; 96375; 99291; 99292; J0713; J1200; J1610; J1644; J1815; J1940; J2001; J2060; J2250; J2543; J2765; J3010; J3370; J3480; J3490; J7030; J7060; Q0092

== ENCOUNTER 2024-01-06 21:00 | Inpatient (IN) | payer OTHER ==
[~2024-01-06] VITALS: Ht 167.6 cm; Wt 51.3 kg
[~2024-01-06 21:00] MED LIST changes: -ERTA1VIA2 IJ; +METO5SOL GT; -Vancomycin Per Pharmacy MC; +[UNRECOGNIZED DRUG - CODE] IV
[2024-01-06 21:10] VITALS: BP 124/80; PULSE 124; RESP 20; TEMP 99.1; O2SAT 98
[2024-01-06 21:15] VITALS: BP 124/80; PULSE 130; PULSE 133; RESP 16; O2SAT 95; O2SAT 96
[2024-01-06] MEDS: NACL 0.9% 1,000 ML IV ONE (21:15)
[2024-01-06 21:57] LABS: BLOOD GAS BASE EXCESS 3.6 mmol/L (-2.0-3.0); BLOOD GAS HCO3 26.9 mmol/L (21.0-28.0); BLOOD GAS O2 SAT% 98.8 % (94.0-98.0); BLOOD GAS PCO2 36.8 mmHg (35.0-48.0); BLOOD GAS PH 7.481 (7.350-7.450); BLOOD GAS PO2 122.6 mmHg (83.0-108.0)
[2024-01-06 23:01] LABS: HEMATOCRIT 54.8 % (36-52); MEAN CORPUSCULAR HEMOGLOBIN 25 pg (27-31); MEAN CORPUSCULAR HGB CONC 33 g/dL (33-37); MEAN CORPUSCULAR VOLUME 76.9 fL (80-94); PLATELET COUNT (AUTO) 138 K/uL (140-450); RED BLOOD CELL COUNT(AUTO) 7.13 MIL/uL (4.20-6.10); RED CELL DISTRIBUTION WIDTH 15.6 % (11.6-13.7); WHITE BLOOD COUNT (AUTO) 17.1 K/uL (4.8-10.8)
[2024-01-06 23:10] LABS: ANION GAP 12.6 (8-16); CALCIUM 8.5 mg/dL (8.5-10.1); CARBON DIOXIDE 28.3 mmol/L (21-32); CREATININE 1.1 mg/dL (0.6-1.3); POTASSIUM 3.9 mmol/L (3.5-5.1)
[2024-01-06 23:16] LABS: INR 1.04 (0.8-1.2); PROTHROMBIN TIME 10.9 secs (10.8-13.4)
[2024-01-06 23:17] LABS: LACTIC ACID 2.9 mmol/L (0.4-2.0)
[2024-01-06 23:23] LABS: LYMPHOCYTES % (MANUAL) 5 % (20-46); MONOCYTES % (MANUAL) 9 % (5-12)
[2024-01-06 23:25] LABS: ALBUMIN 2.7 g/dL (3.4-5.0); BILIRUBIN,DIRECT 0.5 mg/dL (0.0-0.3); TOTAL BILIRUBIN 0.9 mg/dL (0.0-1.0); TOTAL PROTEIN, SERUM 8.4 g/dL (6.4-8.2)
[2024-01-06] MEDS ORDERED: PIPERACILLIN/TAZOBACTAM 3.375 GM VIAL IV ONE (23:31)
[2024-01-06] MEDS: PIPERACILLIN/TAZOBACTAM 3.375 GM in DEXTROSE 5% 50 ML IV ONE (23:41)
[2024-01-06] MEDS: NACL 0.9% 500 ML IV ONE (23:41)
[2024-01-07] VITALS (16 sets, daily range): BP systolic 123–157; BP diastolic 64–92; PULSE 19–141; RESP 12–29; TEMP 98–98.5; O2SAT 97–98
[2024-01-07] MEDS ORDERED: VANCOMYCIN 1,000 MG VIAL ONE (00:49)
[2024-01-07] MEDS: VANCOMYCIN 1,000 MG in DEXTROSE 5% 250 ML IV ONE (01:07)
[2024-01-07] MEDS ORDERED: KCL 20 MEQ IN 100 mL PREMIX 200 ML IV PRN (02:05)
[2024-01-07] MEDS ORDERED: HYDROcodone/APAP 5/325 MG 1 TAB TAB PO PRN (02:05)
[2024-01-07] MEDS ORDERED: POTASSIUM CHLORIDE 10 MEQ TABER PO PRN (02:05)
[2024-01-07] MEDS: NACL 0.9% 1,000 ML IV SCH (03:06)
[2024-01-07 05:14] LABS: APPEARANCE,URINE CLEAR (CLEAR); BILIRUBIN,URINE NEGATIVE (NEGATIVE); BLOOD, URINE NEGATIVE (NEGATIVE); COLOR,URINE YELLOW (YELLOW); LEUKOCYTE ESTERASE ,URINE NEGATIVE (NEGATIVE); NITRITE, URINE NEGATIVE (NEGATIVE); PROTEIN,URINE TRACE (NEGATIVE); UGLUCOSE NEGATIVE (NEGATIVE); UROBILINOGEN,URINE 0.2 EU/dL (0.2 - 1)
[2024-01-07] MEDS: Z-GUARD PASTE TP ONE (05:16)
[2024-01-07] MEDS: ONDANSETRON 4 MG/2 ML VIAL IVP PRN (05:21)
[2024-01-07 05:27] LABS: BACTERIA,URINE OCCASSIONAL /HPF (None Seen); RBC,URINE NONE SEEN /HPF (0-5); SQUAMOUS EPITHELIAL CELL,UR 0-3 (FEW) /LPF (0-3 (FEW)); WBC,URINE NONE SEEN /HPF (0-5)
[2024-01-07 08:23] LABS: BASOPHILS % (AUTO) 0.2 % (0.0-2.0); EOSINOPHILS # (AUTO) 0.2 K/uL (0-0.4); EOSINOPHILS % (AUTO) 1.2 % (0.0-4.0); HEMATOCRIT 51.7 % (36-52); HEMOGLOBIN 16.9 g/dL (12.0-18.0); LYMPHOCYTES % (AUTO) 5.5 % (20.5-51.1); MEAN CORPUSCULAR HEMOGLOBIN 25 pg (27-31); MEAN CORPUSCULAR HGB CONC 33 g/dL (33-37); MEAN CORPUSCULAR VOLUME 77.2 fL (80-94); MONOCYTES # (AUTO) 1.9 K/uL (0.8-1.0); MONOCYTES % (AUTO) 10.7 % (1.7-9.3); NEUTROPHILS # (AUTO) 14.5 K/uL (1.8-7.7); NEUTROPHILS % (AUTO) 82.4 % (42.2-75.2); PLATELET COUNT (AUTO) 140 K/uL (140-450); RED BLOOD CELL COUNT(AUTO) 6.69 MIL/uL (4.20-6.10); RED CELL DISTRIBUTION WIDTH 15.5 % (11.6-13.7); WHITE BLOOD COUNT (AUTO) 17.6 K/uL (4.8-10.8)
[2024-01-07 08:41] LABS: ANION GAP 11.9 (8-16); CALCIUM 8.4 mg/dL (8.5-10.1); CARBON DIOXIDE 27.1 mmol/L (21-32); CREATININE 0.9 mg/dL (0.6-1.3)
[2024-01-07 09:41] LABS: FLU A ANTIGEN negative (NEGATIVE); FLU B ANTIGEN negative (NEGATIVE)
[2024-01-07] MEDS ORDERED: VANCOMYCIN PER PHARMACY MC PRN (10:55)
[2024-01-07] MEDS: VANCOMYCIN HCL 750 MG in DEXTROSE 5% 250 ML IV SCH (12:28)
[2024-01-07] MEDS ORDERED: TPN PER PHARMACY MC PRN (17:00)
[2024-01-07] MEDS ORDERED: DEXT 5% / NACL 0.9% 500 ML IV SCH (17:00)
[2024-01-07] MEDS: DEXT 5% / NACL 0.9% 1,000 ML IV SCH (17:29)
[2024-01-07] MEDS: metroNIDAZOLE 500 MG/NS PREMIX 100 ML IV SCH (20:14)
[2024-01-08] VITALS (18 sets, daily range): BP systolic 97–161; BP diastolic 41–81; PULSE 82–119; RESP 13–17; TEMP 97.8–98.9; O2SAT 94–100
[2024-01-08] MEDS: MORPHINE SULFATE 4 MG/ML SYR IVP PRN (02:45)
[2024-01-08 05:34] LABS: BASOPHILS % (AUTO) 0.3 % (0.0-2.0); EOSINOPHILS # (AUTO) 0.2 K/uL (0-0.4); EOSINOPHILS % (AUTO) 1.1 % (0.0-4.0); HEMATOCRIT 39.5 % (36-52); HEMOGLOBIN 12.9 g/dL (12.0-18.0); LYMPHOCYTES # (AUTO) 1.5 K/uL (2.0-11.5); LYMPHOCYTES % (AUTO) 8.4 % (20.5-51.1); MEAN CORPUSCULAR HEMOGLOBIN 25 pg (27-31); MEAN CORPUSCULAR HGB CONC 33 g/dL (33-37); MEAN CORPUSCULAR VOLUME 77.1 fL (80-94); MONOCYTES # (AUTO) 2.3 K/uL (0.8-1.0); MONOCYTES % (AUTO) 13.4 % (1.7-9.3); NEUTROPHILS # (AUTO) 13.2 K/uL (1.8-7.7); NEUTROPHILS % (AUTO) 76.8 % (42.2-75.2); PLATELET COUNT (AUTO) 108 K/uL (140-450); RED BLOOD CELL COUNT(AUTO) 5.13 MIL/uL (4.20-6.10); RED CELL DISTRIBUTION WIDTH 15.4 % (11.6-13.7); WHITE BLOOD COUNT (AUTO) 17.3 K/uL (4.8-10.8)
[2024-01-08 05:59] LABS: ANION GAP 5.9 (8-16); CALCIUM 7.8 mg/dL (8.5-10.1); CARBON DIOXIDE 31.4 mmol/L (21-32); CREATININE 0.7 mg/dL (0.6-1.3); POTASSIUM 3.3 mmol/L (3.5-5.1)
[2024-01-08] MEDS ORDERED: Z-GUARD PASTE TP PRN (08:05)
[2024-01-08] MEDS: PANTOPRAZOLE 40 MG INJ VIAL IVP SCH (08:24)
[2024-01-08] MEDS: POTASSIUM CHLORIDE 20% 40 MEQ/15 ML UDC GT PRN (09:41)
[2024-01-08] MEDS: Z-GUARD PASTE TP SCH (12:34)
[2024-01-08] MEDS: VANCOMYCIN 1,000 MG in DEXTROSE 5% 250 ML IV SCH (13:40)
[2024-01-08] MEDS: POTASSIUM PHOSPHATE 15 MM in NACL 0.9% 250 ML IV SCH (15:25)
[2024-01-08] MEDS ORDERED: DEXT 5% / NACL 0.9% 1,000 ML IV SCH (17:00)
[2024-01-08] MEDS: BLOOD GLUCOSE MONITORING 1 DEV DEV MC SCH (21:24)
[2024-01-08] MEDS: MULTIVITAMIN IV SCH (21:33)
[2024-01-08] MEDS: DEXTROSE IV SCH (21:33)
[2024-01-09] VITALS (15 sets, daily range): BP systolic 107–146; BP diastolic 57–79; PULSE 92–140; RESP 13–46; TEMP 97.3–99.8; O2SAT 88–99
[2024-01-09 05:43] LABS: BASOPHILS % (AUTO) 0.2 % (0.0-2.0); EOSINOPHILS # (AUTO) 0.5 K/uL (0-0.4); EOSINOPHILS % (AUTO) 3.3 % (0.0-4.0); HEMATOCRIT 35.4 % (36-52); HEMOGLOBIN 11.4 g/dL (12.0-18.0); LYMPHOCYTES # (AUTO) 1.5 K/uL (2.0-11.5); LYMPHOCYTES % (AUTO) 10.3 % (20.5-51.1); MEAN CORPUSCULAR HEMOGLOBIN 25 pg (27-31); MEAN CORPUSCULAR HGB CONC 32 g/dL (33-37); MEAN CORPUSCULAR VOLUME 77.8 fL (80-94); MONOCYTES % (AUTO) 13.9 % (1.7-9.3); NEUTROPHILS # (AUTO) 10.4 K/uL (1.8-7.7); NEUTROPHILS % (AUTO) 72.3 % (42.2-75.2); PLATELET COUNT (AUTO) 103 K/uL (140-450); RED BLOOD CELL COUNT(AUTO) 4.55 MIL/uL (4.20-6.10); RED CELL DISTRIBUTION WIDTH 15.5 % (11.6-13.7); WHITE BLOOD COUNT (AUTO) 14.3 K/uL (4.8-10.8)
[2024-01-09 06:07] LABS: ALBUMIN 1.9 g/dL (3.4-5.0); ANION GAP 8.6 (8-16); CALCIUM 7.6 mg/dL (8.5-10.1); CARBON DIOXIDE 26.7 mmol/L (21-32); CREATININE 0.6 mg/dL (0.6-1.3); MAGNESIUM 2.3 mg/dL (1.8-2.4); PHOSPHORUS 1.8 mg/dL (2.5-4.9); POTASSIUM 3.3 mmol/L (3.5-5.1); TOTAL BILIRUBIN 0.6 mg/dL (0.0-1.0); TOTAL PROTEIN, SERUM 6.3 g/dL (6.4-8.2)
[2024-01-09] MEDS: POTASSIUM PHOSPHATE 15 MM in NACL 0.9% 250 ML IV SCH (08:56)
[2024-01-09] MEDS ORDERED: DEXT 5% /NACL 0.9% 1,000 ML IV SCH (17:30)
[2024-01-09] MEDS: MULTIVITAMIN IV SCH (20:04)
[2024-01-09] MEDS: DEXTROSE IV SCH (20:04)
[2024-01-09] MEDS: MEDS-TO-BEDS MC SCH (20:07)
[2024-01-09] MEDS: LORazepam 1 MG TAB PO PRN (20:53)
[2024-01-10] VITALS (19 sets, daily range): BP systolic 118–151; BP diastolic 58–87; PULSE 74–142; RESP 13–32; TEMP 97.6–98.7; O2SAT 93–98
[2024-01-10 07:00] LABS: BASOPHILS % (AUTO) 0.2 % (0.0-2.0); EOSINOPHILS # (AUTO) 0.5 K/uL (0-0.4); EOSINOPHILS % (AUTO) 3.8 % (0.0-4.0); HEMATOCRIT 36.1 % (36-52); HEMOGLOBIN 11.9 g/dL (12.0-18.0); LYMPHOCYTES # (AUTO) 1.5 K/uL (2.0-11.5); LYMPHOCYTES % (AUTO) 11.6 % (20.5-51.1); MEAN CORPUSCULAR HEMOGLOBIN 25 pg (27-31); MEAN CORPUSCULAR HGB CONC 33 g/dL (33-37); MEAN CORPUSCULAR VOLUME 76.5 fL (80-94); MONOCYTES # (AUTO) 1.9 K/uL (0.8-1.0); MONOCYTES % (AUTO) 14.4 % (1.7-9.3); PLATELET COUNT (AUTO) 124 K/uL (140-450); RED BLOOD CELL COUNT(AUTO) 4.72 MIL/uL (4.20-6.10); RED CELL DISTRIBUTION WIDTH 15.3 % (11.6-13.7); WHITE BLOOD COUNT (AUTO) 12.9 K/uL (4.8-10.8)
[2024-01-10 07:12] LABS: ANION GAP 9.9 (8-16); CARBON DIOXIDE 25.6 mmol/L (21-32); CREATININE 0.5 mg/dL (0.6-1.3); PHOSPHORUS 2.3 mg/dL (2.5-4.9); POTASSIUM 3.5 mmol/L (3.5-5.1)
[2024-01-10] MEDS: ERTAPENEM SODIUM 1,000 MG in NACL 0.9% 50 ML IV SCH (17:19)
[2024-01-10] MEDS: MULTIVITAMIN IV SCH (20:17)
[2024-01-10] MEDS: AMINO ACIDS IV SCH (20:17)
[2024-01-10] MEDS: DEXTROSE IV SCH (20:17)
[2024-01-10] MEDS: [UNRECOGNIZED DRUG - OTHER] IV SCH (20:17)
[2024-01-11] VITALS (14 sets, daily range): BP systolic 114–152; BP diastolic 64–92; PULSE 88–120; RESP 17–31; TEMP 96.7–99.2; O2SAT 94–100
[2024-01-11 06:43] LABS: BASOPHILS % (AUTO) 0.3 % (0.0-2.0); EOSINOPHILS # (AUTO) 0.5 K/uL (0-0.4); EOSINOPHILS % (AUTO) 3.6 % (0.0-4.0); HEMOGLOBIN 12.9 g/dL (12.0-18.0); LYMPHOCYTES # (AUTO) 1.5 K/uL (2.0-11.5); LYMPHOCYTES % (AUTO) 10.5 % (20.5-51.1); MEAN CORPUSCULAR HEMOGLOBIN 25 pg (27-31); MEAN CORPUSCULAR HGB CONC 33 g/dL (33-37); MEAN CORPUSCULAR VOLUME 76.4 fL (80-94); MONOCYTES # (AUTO) 2.2 K/uL (0.8-1.0); NEUTROPHILS # (AUTO) 9.7 K/uL (1.8-7.7); NEUTROPHILS % (AUTO) 69.6 % (42.2-75.2); PLATELET COUNT (AUTO) 148 K/uL (140-450); RED CELL DISTRIBUTION WIDTH 15.3 % (11.6-13.7); WHITE BLOOD COUNT (AUTO) 13.9 K/uL (4.8-10.8)
[2024-01-11 07:15] LABS: ANION GAP 10.5 (8-16); CALCIUM 8.2 mg/dL (8.5-10.1); CARBON DIOXIDE 26.1 mmol/L (21-32); CREATININE 0.6 mg/dL (0.6-1.3); POTASSIUM 3.6 mmol/L (3.5-5.1)
[2024-01-11 07:26] LABS: PHOSPHORUS 2.3 mg/dL (2.5-4.9)
[2024-01-11] MEDS: ALUMINUM HYD/MAG/SIMETHICONE 30 ML UDC GT SCH (12:40)
[2024-01-12] VITALS (12 sets, daily range): BP systolic 116–128; BP diastolic 51–115; PULSE 97–120; RESP 20–31; TEMP 98.6–99.3; O2SAT 93–99
[2024-01-12 07:09] LABS: MAGNESIUM 1.8 mg/dL (1.8-2.4); PHOSPHORUS 2.1 mg/dL (2.5-4.9)
[2024-01-12 07:24] LABS: ALBUMIN 2.2 g/dL (3.4-5.0); ANION GAP 10.7 (8-16); CALCIUM 8.3 mg/dL (8.5-10.1); CARBON DIOXIDE 26.7 mmol/L (21-32); CREATININE 0.6 mg/dL (0.6-1.3); POTASSIUM 3.4 mmol/L (3.5-5.1); TOTAL BILIRUBIN 0.6 mg/dL (0.0-1.0); TOTAL PROTEIN, SERUM 7.4 g/dL (6.4-8.2)
[2024-01-12 08:42] LABS: BASOPHILS % (AUTO) 0.3 % (0.0-2.0); EOSINOPHILS # (AUTO) 0.7 K/uL (0-0.4); EOSINOPHILS % (AUTO) 4.1 % (0.0-4.0); HEMOGLOBIN 13.3 g/dL (12.0-18.0); LYMPHOCYTES % (AUTO) 12.6 % (20.5-51.1); MEAN CORPUSCULAR HEMOGLOBIN 25 pg (27-31); MEAN CORPUSCULAR HGB CONC 33 g/dL (33-37); MEAN CORPUSCULAR VOLUME 77.6 fL (80-94); MONOCYTES # (AUTO) 3.2 K/uL (0.8-1.0); MONOCYTES % (AUTO) 19.9 % (1.7-9.3); NEUTROPHILS # (AUTO) 10.2 K/uL (1.8-7.7); NEUTROPHILS % (AUTO) 63.1 % (42.2-75.2); PLATELET COUNT (AUTO) 173 K/uL (140-450); RED BLOOD CELL COUNT(AUTO) 5.29 MIL/uL (4.20-6.10); RED CELL DISTRIBUTION WIDTH 15.4 % (11.6-13.7); WHITE BLOOD COUNT (AUTO) 16.1 K/uL (4.8-10.8)
[2024-01-12] MEDS: POTASSIUM PHOSPHATE 15 MM in NACL 0.9% 250 ML IV SCH (12:00)
[2024-01-13] VITALS (15 sets, daily range): BP systolic 104–129; BP diastolic 56–75; PULSE 100–136; RESP 16–28; TEMP 98.2–100.8; O2SAT 93–98
[2024-01-13 06:49] LABS: BASOPHILS # (AUTO) 0.1 K/uL (0.00-0.22); BASOPHILS % (AUTO) 0.5 % (0.0-2.0); EOSINOPHILS # (AUTO) 0.7 K/uL (0-0.4); EOSINOPHILS % (AUTO) 4.2 % (0.0-4.0); HEMOGLOBIN 12.8 g/dL (12.0-18.0); LYMPHOCYTES # (AUTO) 3.3 K/uL (2.0-11.5); LYMPHOCYTES % (AUTO) 20.1 % (20.5-51.1); MEAN CORPUSCULAR HEMOGLOBIN 26 pg (27-31); MEAN CORPUSCULAR HGB CONC 33 g/dL (33-37); MEAN CORPUSCULAR VOLUME 77.5 fL (80-94); MONOCYTES # (AUTO) 3.3 K/uL (0.8-1.0); MONOCYTES % (AUTO) 20.2 % (1.7-9.3); PLATELET COUNT (AUTO) 181 K/uL (140-450); RED BLOOD CELL COUNT(AUTO) 5.03 MIL/uL (4.20-6.10); RED CELL DISTRIBUTION WIDTH 15.6 % (11.6-13.7); WHITE BLOOD COUNT (AUTO) 16.4 K/uL (4.8-10.8)
[2024-01-13 08:18] LABS: ALBUMIN 2.2 g/dL (3.4-5.0); ANION GAP 10.8 (8-16); CALCIUM 7.9 mg/dL (8.5-10.1); CARBON DIOXIDE 28.9 mmol/L (21-32); CREATININE 0.6 mg/dL (0.6-1.3); POTASSIUM 3.7 mmol/L (3.5-5.1); TOTAL BILIRUBIN 0.4 mg/dL (0.0-1.0); TOTAL PROTEIN, SERUM 7.4 g/dL (6.4-8.2)
[2024-01-13 08:23] LABS: MAGNESIUM 2.3 mg/dL (1.8-2.4); PHOSPHORUS 2.7 mg/dL (2.5-4.9)
[2024-01-13] MEDS ORDERED: BLOOD GLUCOSE MONITORING 1 DEV DEV FS SCH (12:00)
[2024-01-13] MEDS: ACETAMINOPHEN 325 MG TAB PO PRN (13:57)
[2024-01-13] MEDS: METOPROLOL 25 MG TAB PO SCH (20:34)
[2024-01-13] MEDS: levETIRAcetam 100 MG/ML ORASYR GT SCH (20:34)
[2024-01-14] VITALS (17 sets, daily range): BP systolic 105–124; BP diastolic 51–95; PULSE 74–126; RESP 14–22; TEMP 97.3–99.2; O2SAT 95–100
[2024-01-14 06:45] LABS: BASOPHILS # (AUTO) 0.2 K/uL (0.00-0.22); BASOPHILS % (AUTO) 0.9 % (0.0-2.0); EOSINOPHILS % (AUTO) 4.5 % (0.0-4.0); HEMATOCRIT 39.5 % (36-52); HEMOGLOBIN 12.8 g/dL (12.0-18.0); LYMPHOCYTES # (AUTO) 5.1 K/uL (2.0-11.5); LYMPHOCYTES % (AUTO) 22.4 % (20.5-51.1); MEAN CORPUSCULAR HEMOGLOBIN 26 pg (27-31); MEAN CORPUSCULAR HGB CONC 32 g/dL (33-37); MEAN CORPUSCULAR VOLUME 78.8 fL (80-94); MONOCYTES # (AUTO) 3.1 K/uL (0.8-1.0); MONOCYTES % (AUTO) 13.8 % (1.7-9.3); NEUTROPHILS # (AUTO) 13.2 K/uL (1.8-7.7); NEUTROPHILS % (AUTO) 58.4 % (42.2-75.2); PLATELET COUNT (AUTO) 194 K/uL (140-450); RED BLOOD CELL COUNT(AUTO) 5.02 MIL/uL (4.20-6.10); RED CELL DISTRIBUTION WIDTH 15.8 % (11.6-13.7); WHITE BLOOD COUNT (AUTO) 22.7 K/uL (4.8-10.8)
[2024-01-14 07:18] LABS: ALBUMIN 2.1 g/dL (3.4-5.0); ANION GAP 11.6 (8-16); CARBON DIOXIDE 25.4 mmol/L (21-32); CREATININE 0.7 mg/dL (0.6-1.3); TOTAL BILIRUBIN 0.5 mg/dL (0.0-1.0); TOTAL PROTEIN, SERUM 7.6 g/dL (6.4-8.2)
[2024-01-14 07:48] LABS: MAGNESIUM 2.4 mg/dL (1.8-2.4); PHOSPHORUS 2.9 mg/dL (2.5-4.9)
[2024-01-14] MEDS: VANCOMYCIN HCL 750 MG in DEXTROSE 5% 250 ML IV SCH (09:27)
[2024-01-14] MEDS: FUROSEMIDE 100 MG/10 ML VIAL IV ONE (20:54)
[2024-01-14 21:24] LABS: BLOOD GAS BASE EXCESS 3.1 mmol/L (-2.0-3.0); BLOOD GAS HCO3 24.1 mmol/L (21.0-28.0); BLOOD GAS PH 7.569 (7.350-7.450)
[2024-01-14 21:25] LABS: BLOOD GAS O2 SAT% 99.7 % (94.0-98.0)
[2024-01-14] MEDS: INSULIN LISPRO SLIDING SCALE 100 UNITS/ML VIAL SUBQ PRN (23:54)
[2024-01-15] VITALS (21 sets, daily range): BP systolic 96–143; BP diastolic 51–85; PULSE 67–118; RESP 12–30; TEMP 97.4–99.4; O2SAT 98–100
[2024-01-15 05:35] LABS: BASOPHILS # (AUTO) 0.1 K/uL (0.00-0.22); BASOPHILS % (AUTO) 0.6 % (0.0-2.0); EOSINOPHILS # (AUTO) 0.6 K/uL (0-0.4); EOSINOPHILS % (AUTO) 2.8 % (0.0-4.0); HEMATOCRIT 38.5 % (36-52); HEMOGLOBIN 12.6 g/dL (12.0-18.0); LYMPHOCYTES # (AUTO) 3.1 K/uL (2.0-11.5); LYMPHOCYTES % (AUTO) 14.3 % (20.5-51.1); MEAN CORPUSCULAR HEMOGLOBIN 26 pg (27-31); MEAN CORPUSCULAR HGB CONC 33 g/dL (33-37); MEAN CORPUSCULAR VOLUME 78.3 fL (80-94); MONOCYTES # (AUTO) 2.4 K/uL (0.8-1.0); MONOCYTES % (AUTO) 11.2 % (1.7-9.3); NEUTROPHILS # (AUTO) 15.3 K/uL (1.8-7.7); NEUTROPHILS % (AUTO) 71.1 % (42.2-75.2); PLATELET COUNT (AUTO) 191 K/uL (140-450); RED BLOOD CELL COUNT(AUTO) 4.92 MIL/uL (4.20-6.10); RED CELL DISTRIBUTION WIDTH 15.9 % (11.6-13.7); WHITE BLOOD COUNT (AUTO) 21.5 K/uL (4.8-10.8)
[2024-01-15 05:51] LABS: ALBUMIN 2.1 g/dL (3.4-5.0); ANION GAP 9.2 (8-16); CALCIUM 7.9 mg/dL (8.5-10.1); CARBON DIOXIDE 30.6 mmol/L (21-32); CREATININE 0.7 mg/dL (0.6-1.3); POTASSIUM 3.8 mmol/L (3.5-5.1); TOTAL BILIRUBIN 0.4 mg/dL (0.0-1.0); TOTAL PROTEIN, SERUM 7.7 g/dL (6.4-8.2)
[2024-01-15 10:25] LABS: MAGNESIUM 2.5 mg/dL (1.8-2.4); PHOSPHORUS 3.5 mg/dL (2.5-4.9)
[2024-01-15] MEDS: FUROSEMIDE 20 MG/2 ML VIAL IVP SCH (13:34)
[2024-01-15] MEDS: ERTAPENEM SODIUM 1,000 MG in NACL 0.9% 50 ML IV SCH (13:35)
[2024-01-15] MEDS ORDERED: [UNRECOGNIZED DRUG - OTHER] IV SCH (20:00)
[2024-01-15] MEDS ORDERED: AMINO ACIDS IV SCH (20:00)
[2024-01-15] MEDS ORDERED: MULTIVITAMIN IV SCH (20:00)
[2024-01-15] MEDS ORDERED: DEXTROSE IV SCH (20:00)
[2024-01-16] VITALS (16 sets, daily range): BP systolic 105–138; BP diastolic 55–84; PULSE 78–118; RESP 13–23; TEMP 98.3–99.1; O2SAT 100
[2024-01-16 06:06] LABS: BASOPHILS # (AUTO) 0.4 K/uL (0.00-0.22); BASOPHILS % (AUTO) 2.1 % (0.0-2.0); EOSINOPHILS % (AUTO) 5.1 % (0.0-4.0); HEMATOCRIT 39.1 % (36-52); HEMOGLOBIN 12.6 g/dL (12.0-18.0); LYMPHOCYTES # (AUTO) 2.3 K/uL (2.0-11.5); LYMPHOCYTES % (AUTO) 12.1 % (20.5-51.1); MEAN CORPUSCULAR HEMOGLOBIN 25 pg (27-31); MEAN CORPUSCULAR HGB CONC 32 g/dL (33-37); MONOCYTES % (AUTO) 5.1 % (1.7-9.3); NEUTROPHILS # (AUTO) 14.5 K/uL (1.8-7.7); NEUTROPHILS % (AUTO) 75.6 % (42.2-75.2); PLATELET COUNT (AUTO) 207 K/uL (140-450); RED BLOOD CELL COUNT(AUTO) 5.01 MIL/uL (4.20-6.10); RED CELL DISTRIBUTION WIDTH 16.5 % (11.6-13.7); WHITE BLOOD COUNT (AUTO) 19.2 K/uL (4.8-10.8)
[2024-01-16 07:01] LABS: ALBUMIN 2.1 g/dL (3.4-5.0); ANION GAP 8.7 (8-16); CALCIUM 8.1 mg/dL (8.5-10.1); CARBON DIOXIDE 30.6 mmol/L (21-32); CREATININE 0.7 mg/dL (0.6-1.3); POTASSIUM 4.3 mmol/L (3.5-5.1); TOTAL BILIRUBIN 0.4 mg/dL (0.0-1.0); TOTAL PROTEIN, SERUM 8.1 g/dL (6.4-8.2)
[2024-01-16] MEDS: METOCLOPRAMIDE 10 MG/2 ML INJ VIAL IVP SCH (17:23)
[2024-01-16] MEDS: METOPROLOL 5 MG/5 ML VIAL IV SCH (17:25)
[2024-01-16] MEDS: ALUMINUM HYD/MAG/SIMETHICONE 30 ML UDC TOP SCH (17:38)
[2024-01-16] MEDS: levETIRAcetam 1,500 MG in NACL 0.9% 100 ML IV SCH (21:11)
[2024-01-17] VITALS (13 sets, daily range): BP systolic 104–123; BP diastolic 55–78; PULSE 72–110; RESP 14–20; TEMP 97.7–98.7; O2SAT 97–100
[2024-01-17 06:15] LABS: ALBUMIN 2.1 g/dL (3.4-5.0); ANION GAP 10.9 (8-16); CALCIUM 8.3 mg/dL (8.5-10.1); CREATININE 0.7 mg/dL (0.6-1.3); POTASSIUM 3.9 mmol/L (3.5-5.1); TOTAL BILIRUBIN 0.4 mg/dL (0.0-1.0); TOTAL PROTEIN, SERUM 8.4 g/dL (6.4-8.2)
[2024-01-17 06:18] LABS: BASOPHILS # (AUTO) 0.1 K/uL (0.00-0.22); BASOPHILS % (AUTO) 0.4 % (0.0-2.0); EOSINOPHILS # (AUTO) 0.6 K/uL (0-0.4); LYMPHOCYTES # (AUTO) 3.3 K/uL (2.0-11.5); LYMPHOCYTES % (AUTO) 15.7 % (20.5-51.1); MEAN CORPUSCULAR HEMOGLOBIN 25 pg (27-31); MEAN CORPUSCULAR HGB CONC 33 g/dL (33-37); MEAN CORPUSCULAR VOLUME 77.3 fL (80-94); MONOCYTES # (AUTO) 2.3 K/uL (0.8-1.0); MONOCYTES % (AUTO) 10.7 % (1.7-9.3); NEUTROPHILS % (AUTO) 70.2 % (42.2-75.2); PLATELET COUNT (AUTO) 201 K/uL (140-450); RED BLOOD CELL COUNT(AUTO) 5.18 MIL/uL (4.20-6.10); RED CELL DISTRIBUTION WIDTH 16.3 % (11.6-13.7); WHITE BLOOD COUNT (AUTO) 21.3 K/uL (4.8-10.8)
[2024-01-17 06:52] LABS: MAGNESIUM 2.2 mg/dL (1.8-2.4); PHOSPHORUS 2.6 mg/dL (2.5-4.9)
[2024-01-17] MEDS: ZOLPIDEM 5 MG TAB PO PRN (21:51)
[2024-01-18] VITALS (16 sets, daily range): BP systolic 107–134; BP diastolic 59–96; PULSE 82–119; RESP 14–27; TEMP 97.2–98.3; O2SAT 94–100
[2024-01-18 05:23] LABS: BASOPHILS # (AUTO) 0.1 K/uL (0.00-0.22); BASOPHILS % (AUTO) 0.4 % (0.0-2.0); EOSINOPHILS # (AUTO) 0.6 K/uL (0-0.4); EOSINOPHILS % (AUTO) 3.4 % (0.0-4.0); HEMOGLOBIN 13.4 g/dL (12.0-18.0); LYMPHOCYTES # (AUTO) 3.4 K/uL (2.0-11.5); LYMPHOCYTES % (AUTO) 18.2 % (20.5-51.1); MEAN CORPUSCULAR HEMOGLOBIN 25 pg (27-31); MEAN CORPUSCULAR HGB CONC 33 g/dL (33-37); MEAN CORPUSCULAR VOLUME 77.7 fL (80-94); MONOCYTES # (AUTO) 2.1 K/uL (0.8-1.0); MONOCYTES % (AUTO) 11.3 % (1.7-9.3); NEUTROPHILS # (AUTO) 12.3 K/uL (1.8-7.7); NEUTROPHILS % (AUTO) 66.7 % (42.2-75.2); PLATELET COUNT (AUTO) 178 K/uL (140-450); RED BLOOD CELL COUNT(AUTO) 5.27 MIL/uL (4.20-6.10); RED CELL DISTRIBUTION WIDTH 16.6 % (11.6-13.7); WHITE BLOOD COUNT (AUTO) 18.4 K/uL (4.8-10.8)
[2024-01-18 05:55] LABS: ALBUMIN 2.1 g/dL (3.4-5.0); ANION GAP 8.8 (8-16); CALCIUM 8.4 mg/dL (8.5-10.1); CARBON DIOXIDE 28.2 mmol/L (21-32); CREATININE 0.7 mg/dL (0.6-1.3); TOTAL BILIRUBIN 0.5 mg/dL (0.0-1.0); TOTAL PROTEIN, SERUM 8.6 g/dL (6.4-8.2)
[2024-01-19] VITALS (15 sets, daily range): BP systolic 109–135; BP diastolic 55–90; PULSE 85–118; RESP 15–25; TEMP 97.2–98; O2SAT 93–100
[2024-01-19 05:22] LABS: BASOPHILS # (AUTO) 0.1 K/uL (0.00-0.22); BASOPHILS % (AUTO) 0.5 % (0.0-2.0); EOSINOPHILS # (AUTO) 0.7 K/uL (0-0.4); HEMATOCRIT 40.9 % (36-52); HEMOGLOBIN 13.4 g/dL (12.0-18.0); LYMPHOCYTES # (AUTO) 3.7 K/uL (2.0-11.5); LYMPHOCYTES % (AUTO) 19.5 % (20.5-51.1); MEAN CORPUSCULAR HEMOGLOBIN 25 pg (27-31); MEAN CORPUSCULAR HGB CONC 33 g/dL (33-37); MEAN CORPUSCULAR VOLUME 77.6 fL (80-94); MONOCYTES # (AUTO) 2.4 K/uL (0.8-1.0); MONOCYTES % (AUTO) 12.7 % (1.7-9.3); NEUTROPHILS # (AUTO) 11.9 K/uL (1.8-7.7); NEUTROPHILS % (AUTO) 63.3 % (42.2-75.2); PLATELET COUNT (AUTO) 152 K/uL (140-450); RED BLOOD CELL COUNT(AUTO) 5.27 MIL/uL (4.20-6.10); RED CELL DISTRIBUTION WIDTH 16.8 % (11.6-13.7); WHITE BLOOD COUNT (AUTO) 18.8 K/uL (4.8-10.8)
[2024-01-19 05:53] LABS: ALBUMIN 2.1 g/dL (3.4-5.0); ANION GAP 11.6 (8-16); CALCIUM 8.3 mg/dL (8.5-10.1); CARBON DIOXIDE 26.2 mmol/L (21-32); CREATININE 0.8 mg/dL (0.6-1.3); POTASSIUM 3.8 mmol/L (3.5-5.1); TOTAL BILIRUBIN 0.5 mg/dL (0.0-1.0); TOTAL PROTEIN, SERUM 8.5 g/dL (6.4-8.2)
[2024-01-19] MEDS: ALBUTEROL SULFATE/IPRATROPIU 3 ML SOL IH PRN (14:03)
[2024-01-19] MEDS: ALBUTEROL SULFATE/IPRATROPIU 3 ML SOL IH SCH (19:00)
[2024-01-20] VITALS (14 sets, daily range): BP systolic 105–136; BP diastolic 56–102; PULSE 86–126; RESP 16–25; TEMP 97.2–99.9; O2SAT 94–100
[2024-01-20 05:02] LABS: BASOPHILS # (AUTO) 0.1 K/uL (0.00-0.22); BASOPHILS % (AUTO) 0.9 % (0.0-2.0); EOSINOPHILS # (AUTO) 0.7 K/uL (0-0.4); EOSINOPHILS % (AUTO) 4.9 % (0.0-4.0); HEMATOCRIT 40.1 % (36-52); HEMOGLOBIN 12.9 g/dL (12.0-18.0); LYMPHOCYTES # (AUTO) 3.1 K/uL (2.0-11.5); LYMPHOCYTES % (AUTO) 20.9 % (20.5-51.1); MEAN CORPUSCULAR HEMOGLOBIN 25 pg (27-31); MEAN CORPUSCULAR HGB CONC 32 g/dL (33-37); MEAN CORPUSCULAR VOLUME 78.4 fL (80-94); MONOCYTES # (AUTO) 2.2 K/uL (0.8-1.0); MONOCYTES % (AUTO) 14.9 % (1.7-9.3); NEUTROPHILS # (AUTO) 8.7 K/uL (1.8-7.7); NEUTROPHILS % (AUTO) 58.4 % (42.2-75.2); PLATELET COUNT (AUTO) 184 K/uL (140-450); RED BLOOD CELL COUNT(AUTO) 5.12 MIL/uL (4.20-6.10); RED CELL DISTRIBUTION WIDTH 16.5 % (11.6-13.7); WHITE BLOOD COUNT (AUTO) 14.9 K/uL (4.8-10.8)
[2024-01-20 05:28] LABS: ANION GAP 8.4 (8-16); CALCIUM 8.2 mg/dL (8.5-10.1); CARBON DIOXIDE 28.6 mmol/L (21-32); CREATININE 0.7 mg/dL (0.6-1.3); TOTAL BILIRUBIN 0.6 mg/dL (0.0-1.0); TOTAL PROTEIN, SERUM 8.3 g/dL (6.4-8.2)
[2024-01-21] VITALS (15 sets, daily range): BP systolic 120–146; BP diastolic 54–87; PULSE 86–125; RESP 16–26; TEMP 97.2–98.8; O2SAT 94–100
[2024-01-21 05:29] LABS: BASOPHILS # (AUTO) 0.2 K/uL (0.00-0.22); BASOPHILS % (AUTO) 1.1 % (0.0-2.0); EOSINOPHILS # (AUTO) 0.6 K/uL (0-0.4); EOSINOPHILS % (AUTO) 3.3 % (0.0-4.0); HEMATOCRIT 39.5 % (36-52); HEMOGLOBIN 12.8 g/dL (12.0-18.0); LYMPHOCYTES # (AUTO) 3.3 K/uL (2.0-11.5); LYMPHOCYTES % (AUTO) 18.9 % (20.5-51.1); MEAN CORPUSCULAR HEMOGLOBIN 25 pg (27-31); MEAN CORPUSCULAR HGB CONC 32 g/dL (33-37); MEAN CORPUSCULAR VOLUME 77.9 fL (80-94); MONOCYTES # (AUTO) 2.8 K/uL (0.8-1.0); NEUTROPHILS # (AUTO) 10.6 K/uL (1.8-7.7); NEUTROPHILS % (AUTO) 60.5 % (42.2-75.2); PLATELET COUNT (AUTO) 195 K/uL (140-450); RED BLOOD CELL COUNT(AUTO) 5.07 MIL/uL (4.20-6.10); RED CELL DISTRIBUTION WIDTH 16.7 % (11.6-13.7); WHITE BLOOD COUNT (AUTO) 17.6 K/uL (4.8-10.8)
[2024-01-21 06:07] LABS: MONOCYTES % (AUTO) 16.2 % (1.7-9.3)
[2024-01-21 06:09] LABS: CALCIUM 8.1 mg/dL (8.5-10.1); CREATININE 0.6 mg/dL (0.6-1.3); TOTAL BILIRUBIN 0.7 mg/dL (0.0-1.0); TOTAL PROTEIN, SERUM 8.2 g/dL (6.4-8.2)
[2024-01-22] VITALS (14 sets, daily range): BP systolic 108–137; BP diastolic 65–88; PULSE 88–188; RESP 16–28; TEMP 97.4–98.3; O2SAT 92–100
[2024-01-22 05:57] LABS: BASOPHILS # (AUTO) 0.1 K/uL (0.00-0.22); BASOPHILS % (AUTO) 0.8 % (0.0-2.0); EOSINOPHILS # (AUTO) 0.8 K/uL (0-0.4); HEMATOCRIT 38.7 % (36-52); HEMOGLOBIN 12.5 g/dL (12.0-18.0); LYMPHOCYTES # (AUTO) 3.9 K/uL (2.0-11.5); LYMPHOCYTES % (AUTO) 27.9 % (20.5-51.1); MEAN CORPUSCULAR HEMOGLOBIN 26 pg (27-31); MEAN CORPUSCULAR HGB CONC 32 g/dL (33-37); MEAN CORPUSCULAR VOLUME 78.6 fL (80-94); MONOCYTES # (AUTO) 2.2 K/uL (0.8-1.0); MONOCYTES % (AUTO) 15.8 % (1.7-9.3); NEUTROPHILS # (AUTO) 6.9 K/uL (1.8-7.7); NEUTROPHILS % (AUTO) 49.5 % (42.2-75.2); PLATELET COUNT (AUTO) 191 K/uL (140-450); RED BLOOD CELL COUNT(AUTO) 4.93 MIL/uL (4.20-6.10); RED CELL DISTRIBUTION WIDTH 16.8 % (11.6-13.7); WHITE BLOOD COUNT (AUTO) 13.8 K/uL (4.8-10.8)
[2024-01-22 06:09] LABS: ALBUMIN 1.9 g/dL (3.4-5.0); ANION GAP 8.8 (8-16); CALCIUM 8.2 mg/dL (8.5-10.1); CARBON DIOXIDE 30.2 mmol/L (21-32); CREATININE 0.8 mg/dL (0.6-1.3); TOTAL BILIRUBIN 0.6 mg/dL (0.0-1.0)
[2024-01-22] MEDS: DEXTROSE IV SCH (21:33)
[2024-01-22] MEDS: MULTIVITAMIN IV SCH (21:33)
[2024-01-22] MEDS: [UNRECOGNIZED DRUG - OTHER] IV SCH (21:33)
[2024-01-22] MEDS: AMINO ACIDS IV SCH (21:33)
[2024-01-23] VITALS (16 sets, daily range): BP systolic 109–144; BP diastolic 49–86; PULSE 98–136; RESP 12–20; TEMP 97.1–97.8; O2SAT 98–100
[2024-01-23 05:25] LABS: BASOPHILS # (AUTO) 0.1 K/uL (0.00-0.22); BASOPHILS % (AUTO) 0.9 % (0.0-2.0); EOSINOPHILS # (AUTO) 0.8 K/uL (0-0.4); EOSINOPHILS % (AUTO) 6.7 % (0.0-4.0); HEMOGLOBIN 12.7 g/dL (12.0-18.0); LYMPHOCYTES # (AUTO) 3.7 K/uL (2.0-11.5); LYMPHOCYTES % (AUTO) 31.4 % (20.5-51.1); MEAN CORPUSCULAR HEMOGLOBIN 25 pg (27-31); MEAN CORPUSCULAR HGB CONC 33 g/dL (33-37); MEAN CORPUSCULAR VOLUME 77.9 fL (80-94); MONOCYTES # (AUTO) 1.8 K/uL (0.8-1.0); MONOCYTES % (AUTO) 15.3 % (1.7-9.3); NEUTROPHILS # (AUTO) 5.4 K/uL (1.8-7.7); NEUTROPHILS % (AUTO) 45.7 % (42.2-75.2); PLATELET COUNT (AUTO) 208 K/uL (140-450); RED CELL DISTRIBUTION WIDTH 16.6 % (11.6-13.7); WHITE BLOOD COUNT (AUTO) 11.8 K/uL (4.8-10.8)
[2024-01-23 05:44] LABS: ANION GAP 4.7 (8-16); CALCIUM 8.3 mg/dL (8.5-10.1); CARBON DIOXIDE 32.8 mmol/L (21-32); CREATININE 0.7 mg/dL (0.6-1.3); MAGNESIUM 2.1 mg/dL (1.8-2.4); PHOSPHORUS 2.9 mg/dL (2.5-4.9); POTASSIUM 3.5 mmol/L (3.5-5.1); TOTAL BILIRUBIN 0.5 mg/dL (0.0-1.0); TOTAL PROTEIN, SERUM 8.1 g/dL (6.4-8.2)
[2024-01-23] MEDS: MULTIVITAMIN-12 10 ML in DEXTROSE 50% 545 ML, AMINO ACIDS 8.5% 545 ML, FAT EMULSION 20%... IV SCH (20:29)
[2024-01-24] VITALS (15 sets, daily range): BP systolic 117–134; BP diastolic 40–71; PULSE 89–119; RESP 14–20; TEMP 97.1–98.1; O2SAT 92–100
[2024-01-24 06:34] LABS: ALBUMIN 2.1 g/dL (3.4-5.0); ANION GAP 8.8 (8-16); CALCIUM 8.4 mg/dL (8.5-10.1); CARBON DIOXIDE 30.7 mmol/L (21-32); CREATININE 0.7 mg/dL (0.6-1.3); PHOSPHORUS 3.7 mg/dL (2.5-4.9); POTASSIUM 3.5 mmol/L (3.5-5.1); TOTAL BILIRUBIN 0.6 mg/dL (0.0-1.0); TOTAL PROTEIN, SERUM 8.4 g/dL (6.4-8.2)
[2024-01-24] MEDS ORDERED: COMMUNICATION ORDER MC PRN (18:50)
[2024-01-24] MEDS: MULTIVITAMIN-12 10 ML in DEXTROSE 50% 545 ML, AMINO ACIDS 8.5% 545 ML, FAT EMULSION 20%... IV SCH (19:31)
[2024-01-24] MEDS ORDERED: MULTIVITAMIN-12 10 ML in DEXTROSE 50% 960 ML, AMINO ACIDS 8.5% 860 ML, FAT EMULSION 20%... IV SCH (20:00)
[2024-01-24] MEDS ORDERED: MULTIVITAMIN-12 10 ML in DEXTROSE 50% 545 ML, AMINO ACIDS 8.5% 545 ML, FAT EMULSION 20%... IV SCH (20:00)
[2024-01-24] MEDS: AVYCAZ IV SCH (21:47)
[2024-01-24] MEDS: DEXTROSE 5% IV SCH (21:47)
[2024-01-25] VITALS (14 sets, daily range): BP systolic 113–125; BP diastolic 57–67; PULSE 96–119; RESP 14–20; TEMP 96.9–98.3; O2SAT 96–100
[2024-01-25 07:12] LABS: ALBUMIN 2.1 g/dL (3.4-5.0); ANION GAP 7.2 (8-16); CALCIUM 8.5 mg/dL (8.5-10.1); CARBON DIOXIDE 31.4 mmol/L (21-32); CREATININE 0.8 mg/dL (0.6-1.3); PHOSPHORUS 3.3 mg/dL (2.5-4.9); POTASSIUM 3.6 mmol/L (3.5-5.1); TOTAL BILIRUBIN 0.5 mg/dL (0.0-1.0); TOTAL PROTEIN, SERUM 8.2 g/dL (6.4-8.2)
[2024-01-25] MEDS ORDERED: KEP500I IV (19:10)
[2024-01-25] MEDS ORDERED: ACET-9525 PO (19:10)
[2024-01-25] MEDS ORDERED: LAS20I IVP (19:10)
[2024-01-25] MEDS ORDERED: LORA-476 PO (19:13)
[2024-01-25] MEDS ORDERED: PRO40I IVP (19:13)
[2024-01-25] MEDS ORDERED: Tpn Per Pharmacy MC (19:13)
[2024-01-25] MEDS ORDERED: [UNRECOGNIZED DRUG - OTHER] IV SCH (20:00)
[2024-01-25] MEDS ORDERED: AMINO ACIDS IV SCH (20:00)
[2024-01-25] MEDS ORDERED: MULTIVITAMIN IV SCH (20:00)
[2024-01-25] MEDS ORDERED: DEXTROSE IV SCH (20:00)
[2024-01-26] MEDS ORDERED: SENNA 8.6 MG TAB JT SCH (09:00)
[2024-01-26] MEDS ORDERED: POLYETHYLENE GLYCOL 17 GM/PKT JT SCH (09:00)
== END 2024-01-25 20:20 | DRG 130 ==
LOC: MED 21:00 → MTU 01-07 02:05 → MIC 01-07 03:22 → MTU 01-09 05:35 → MIC 01-14 18:54 → MTU 01-17 18:00
PROVIDERS: ADMIT Student in an Organized Health Care Education/Training Program; ATTEND Student in an Organized Health Care Education/Training Program
PROC: 5A1955Z Respiratory Ventilation, Greater than 96 Consecutive Hours (ICD-10-PCS; principal; 2024-01-07)
PROC: 02HV33Z Insertion of Infusion Device into Superior Vena Cava, Percutaneous Approach (ICD-10-PCS; 2024-01-08)
PROC: B548ZZA Ultrasonography of Superior Vena Cava, Guidance (ICD-10-PCS; 2024-01-08)
PROC: 0D9670Z Drainage of Stomach with Drainage Device, Via Natural or Artificial Opening (ICD-10-PCS; 2024-01-08)
PROC: 0D9 Gastrointestinal System, Drainage (ICD-10-PCS; 2024-01-08)
PROC: 5A12012 Performance of Cardiac Output, Single, Manual (ICD-10-PCS; 2024-01-15)
PROC: 5A1945Z Respiratory Ventilation, 24-96 Consecutive Hours (ICD-10-PCS; 2024-01-22)
DX: J96.21 Acute and chronic respiratory failure with hypoxia (principal); J69.0 Pneumonitis due to inhalation of food and vomit; G93.40 Encephalopathy, unspecified; A41.9 Sepsis, unspecified organism; K56.699 Other intestinal obstruction unspecified as to partial versus complete obstruction; T80.211A Bloodstream infection due to central venous catheter, initial encounter; I46.9 Cardiac arrest, cause unspecified; Z16.11 Resistance to penicillins; Z16.23 Resistance to quinolones and fluoroquinolones; G40.909 Epilepsy, unspecified, not intractable, without status epilepticus; G80.0 Spastic quadriplegic cerebral palsy; I10 Essential (primary) hypertension; B96.1 Klebsiella pneumoniae [K. pneumoniae] as the cause of diseases classified elsewhere; Z98.2 Presence of cerebrospinal fluid drainage device; K59.00 Constipation, unspecified; G91.9 Hydrocephalus, unspecified; Z20.822 Contact with and (suspected) exposure to COVID-19; Y95 Nosocomial condition; F72 Severe intellectual disabilities; J40 Bronchitis, not specified as acute or chronic; G80.9 Cerebral palsy, unspecified; Z88.2 Allergy status to sulfonamides; Z79.899 Other long term (current) drug therapy; Z88.8 Allergy status to other drugs, medicaments and biological substances; Z93.1 Gastrostomy status; B96.4 Proteus (mirabilis) (morganii) as the cause of diseases classified elsewhere; J18.9 Pneumonia, unspecified organism
CPT/HCPCS: 36415; 36600; 70450; 71045; 74018; 80048; 80053; 80076; 80202; 81001; 82803; 82948; 83605; 83735; 84100; 84478; 85025; 85610; 85730; 87040; 87070; 87081; 87086; 87186; 87205; 89220; 92950; 93005; 94002; 94003; 94640; 96361; 96365; 96366; 96367; 99291; A9153; J0713; J1335; J1644; J1815; J1940; J1953; J2270; J2405; J2470; J2543; J2765; J3370; J3490; J7030; J7060; Q0092